=== PATIENT | female | born 1970 | race Native Hawaiian/Other Pacific Islander ===

== ENCOUNTER 2017-01-04 14:26 | Emergency (ER) | payer OTHER ==
[2017-01-04 14:40] VITALS: BP 166/101; PULSE 85; RESP 14; TEMP 98
--- NOTE | 2017-01-04 14:49 | ED ---
General Adult HPI - General Chief complaint: Eye Problems Stated complaint: eye pain Time Seen by Provider: 01/04/17 14:42 Source: patient, RN notes reviewed Mode of arrival: ambulatory Limitations: no limitations - History of Present Illness Initial comments: Patient 46-year-old female who presents emergency room today with chief complaint of mild redness swelling to the lower right eyelid 3 days. Denies any injury or trauma. Denies any visual changes. Does admit that she seemed a small white spot on the inner aspect. Does admit that she's been trying to use some soap to clean the area. Denies any other complaints or associated symptoms. Patient denies any recent fever, chills, shortness of breath, chest pain, back pain, abdominal pain, nausea or vomiting, numbness or tingling, dysuria or hematuria, constipation or diarrhea, headaches or visual changes, or any other complaints. - Related Data Previous Rx's Medication Instructions Recorded Azithromycin [Zithromax Z-pack] 0 mg PO DIRECTED #6 tab 04/24/16 Fluticasone Nasal [place] [Flonase 1 spray EA NOSTRIL DAILY #1 bottle 04/24/16 Nasal [place]] Loratadine-Pseudoeph 5-120 mg 1 each PO Q12HR #30 tab 04/24/16 [Claritin-D 12 HR] Erythromycin Ophth Oint [Romycin 1 applic RIGHT EYE QID 7 Days 01/04/17 Ophth Oint] Allergies Allergy/AdvReac Type Severity Reaction Status Date / Time meperidine HCl [From Demerol] Allergy Anaphylaxis Verified 01/04/17 14:41 propoxyphene napsylate Allergy Anaphylaxis Verified 01/04/17 14:41 [From Darvocet-N 100] Review of Systems ROS Statement: Those systems with pertinent positive or pertinent negative responses have been documented in the HPI. ROS Other: All systems not noted in ROS Statement are negative. Past Medical History Past Medical History: No Reported History History of Any Multi-Drug Resistant Organisms: MRSA Date of last positivie culture/infection: 12/27/15 MDRO Source:: abdomen Past Surgical History: Section, Cholecystectomy, Hysterectomy Past Psychological History: No Psychological Hx Reported Smoking Status: Never smoker Past Alcohol Use History: None Reported Past Drug Use History: None Reported General Exam - General Exam Comments Initial Comments: General: The patient is awake and alert, in no distress, and does not appear acutely ill. Eye: Pupils are equal, round and reactive to light, extra-ocular movements are intact. No nystagmus. There is normal conjunctiva bilaterally. No signs of icterus. Nose has some mild redness swelling to the right lower eyelid. Inside there is evidence for a stye. Ears, nose, mouth and throat: There are moist mucous membranes and no oral lesions. Neck: The neck is supple, there is no tenderness or JVD. Cardiovascular: There is a regular rate and rhythm. No murmur, rub or gallop is appreciated. Respiratory: Lungs are clear to auscultation, respirations are non-labored, breath sounds are equal. No wheezes, stridor, rales, or rhonchi. Musculoskeletal: Normal ROM, no tenderness. Strength 5/5. Sensation intact. Pulses equal bilaterally 2+. Neurological: A&O x 3. CN II-XII intact, There are no obvious motor or sensory deficits. Coordination appears grossly intact. Speech is normal. Skin: Skin is warm and dry and no rashes or lesions are noted. Psychiatric: Cooperative, appropriate mood & affect, normal judgment. Limitations: no limitations Course Vital Signs 01/04/17 14:34 Temperature 98.0 F Pulse Rate 85 Respiratory 14 Rate Blood Pressure 166/101 O2 Sat by Pulse 96 Oximetry Medical Decision Making - Medical Decision Making She will be given some topical antibiotics to use for the area. Advised to use Benadryl for any itching. Warm compresses. Disposition Clinical Impression: Stye Disposition: HOME SELF-CARE Condition: Good Instructions: [place] (ED) Additional Instructions: Please use warm compresses to the area. Please use topical antibiotic as prescribed. Please follow-up with tax associate attorney if symptoms are not improving over the next 2-3 days. Please return for any other concerns. Prescriptions: Erythromycin Ophth Oint [Romycin Ophth Oint] 1 applic RIGHT EYE QID 7 Days Referrals: Daniel Moreno DO [Primary Care Provider] - 1-2 days Robert Jurado MD [STAFF PHYSICIAN] - 1-2 days Time of Disposition: 14:48
== END 2017-01-04 14:55 | disposition home or self-care (01) ==
LOC: EC 14:26
DX: H00.012 Hordeolum externum right lower eyelid (principal); Z88.5 Allergy status to narcotic agent
CPT/HCPCS: 99283

== ENCOUNTER 2017-01-06 19:36 | Emergency (ER) | payer OTHER ==
[2017-01-06] MEDS ORDERED: TOBRAMYCIN 0.3% OPHTH DROPS 5 ML BTL RIGHT EYE STA (19:49)
--- NOTE | 2017-01-06 19:51 | ED ---
Pediatric HENT HPI - General Chief Complaint: ENT Stated Complaint: revisit rt eye tenderness Time Seen by Provider: 01/06/17 19:46 Source: patient, RN notes reviewed Mode of arrival: ambulatory Limitations: no limitations - History of Present Illness Initial Comments: 46-year-old female presented emergency Department chief complaint right eye swelling, stye. Patient states she seen here 2 days for lower lid stye states that is improving states that she now has an upper lid sty. Patient states that it is painful. Denies any blurred vision no contact lens wearing. Patient did not follow-up with an material expeditor or genetic scientist. Patient states there is no drainage and offers no other complaints at this time. - Related Data Previous Rx's Medication Instructions Recorded Fluticasone Nasal [place] [Flonase 1 spray EA NOSTRIL DAILY #1 bottle 04/24/16 Nasal [place]] Loratadine-Pseudoeph 5-120 mg 1 each PO Q12HR #30 tab 04/24/16 [Claritin-D 12 HR] Erythromycin Ophth Oint [Romycin 1 applic RIGHT EYE QID 7 Days 01/04/17 Ophth Oint] Ibuprofen [Motrin] 600 mg PO Q8HR PRN #30 tab 01/06/17 Tobramycin [Tobrex 0.3% Ophth Soln] 1 drop RIGHT EYE Q4HR #5 ml 01/06/17 Allergies Allergy/AdvReac Type Severity Reaction Status Date / Time meperidine HCl [From Demerol] Allergy Anaphylaxis Verified 01/06/17 19:45 propoxyphene napsylate Allergy Anaphylaxis Verified 01/06/17 19:45 [From Darvocet-N 100] Review of Systems ROS Statement: Those systems with pertinent positive or pertinent negative responses have been documented in the HPI. ROS Other: All systems not noted in ROS Statement are negative. Past Medical History Past Medical History: No Reported History History of Any Multi-Drug Resistant Organisms: MRSA Date of last positivie culture/infection: 12/27/15 MDRO Source:: abdomen Past Surgical History: Section, Cholecystectomy, Hysterectomy Past Psychological History: No Psychological Hx Reported Smoking Status: Never smoker Past Alcohol Use History: None Reported Past Drug Use History: None Reported General Exam Limitations: no limitations General appearance: alert, in no apparent distress Head exam: Present: atraumatic, normocephalic, normal inspection Eye exam: Present: PERRL, EOMI, other (There is a small side in the lower right lid along with a larger stye in the upper lid on the right eye). Absent: normal appearance, scleral icterus, conjunctival injection, periorbital swelling , periorbital tenderness ENT exam: Present: normal exam, normal oropharynx, mucous membranes moist, TM's normal bilaterally Neck exam: Present: normal inspection, full ROM. Absent: tenderness, meningismus, lymphadenopathy Respiratory exam: Present: normal lung sounds bilaterally. Absent: respiratory distress, wheezes, rales, rhonchi, stridor Cardiovascular Exam: Present: regular rate, normal rhythm, normal heart sounds. Absent: systolic murmur, diastolic murmur, rubs, gallop, clicks Course Vital Signs 01/06/17 19:41 Temperature 99.6 F Pulse Rate 84 Respiratory 16 Rate Blood Pressure 190/105 O2 Sat by Pulse 97 Oximetry Medical Decision Making - Medical Decision Making 46-year-old female presented for side of her diet. Patient's advised to use warm compresses to the area patient will follow-up with on-call genetic scientist if symptoms persist she also given Tobrex eye drops at this time. Return parameters were discussed Disposition Clinical Impression: Stye Disposition: HOME SELF-CARE Condition: Stable Instructions: [place]iel (ED) Additional Instructions: Please return to the Emergency Department if symptoms worsen or any other concerns. Prescriptions: Ibuprofen [Motrin] 600 mg PO Q8HR PRN #30 tab PRN Reason: Pain Tobramycin [Tobrex 0.3% Ophth Soln] 1 drop RIGHT EYE Q4HR #5 ml Referrals: Daniel Moreno DO [Primary Care Provider] - 1-2 days Nahun Reynoso MD [STAFF PHYSICIAN] - 1-2 days Time of Disposition: 19:51
[2017-01-06 20:09] VITALS: BP 155/85; PULSE 84; RESP 18; TEMP 99.4
== END 2017-01-06 20:08 | disposition home or self-care (01) ==
LOC: EC 19:36
DX: H00.011 Hordeolum externum right upper eyelid (principal); Z88.5 Allergy status to narcotic agent
CPT/HCPCS: 99283

== ENCOUNTER 2017-04-13 12:37 | Emergency (ER) | payer OTHER ==
[2017-04-13 12:49] VITALS: RESP 18
--- NOTE | 2017-04-13 13:16 | ED ---
URI HPI - General Chief Complaint: Upper Respiratory Infection Stated Complaint: Cough, Sore Throat Time Seen by Provider: 04/13/17 12:50 Source: patient, RN notes reviewed Mode of arrival: ambulatory Limitations: no limitations - History of Present Illness Initial Comments: This is a 46-year-old female who presents to the emergency department with chief complaint of cough. Patient states for the last 5 days she has had a productive cough, sore throat and nasal congestion. Patient states that her cough is productive of white phlegm. She denies any fevers, chills, ear pain, headache, abdominal pain, nausea/vomiting/diarrhea. She denies smoking or tobacco use. She denies any sick contacts or recent travel. Denies chest pain, shortness of breath, dysuria or hematuria, numbness or tingling, or vision changes. - Related Data Previous Rx's Medication Instructions Recorded Fluticasone Nasal [place] [Flonase 1 spray EA NOSTRIL DAILY #1 bottle 04/24/16 Nasal [place]] Loratadine-Pseudoeph 5-120 mg 1 each PO Q12HR #30 tab 04/24/16 [Claritin-D 12 HR] Erythromycin Ophth Oint [Romycin 1 applic RIGHT EYE QID 7 Days gm 01/04/17 Ophth Oint] Ibuprofen [Motrin] 600 mg PO Q8HR PRN #30 tab 01/06/17 Tobramycin [Tobrex 0.3% Ophth Soln] 1 drop RIGHT EYE Q4HR #5 ml 01/06/17 Benzonatate [Tessalon Perles] 100 mg PO TID #15 cap 04/13/17 Allergies Allergy/AdvReac Type Severity Reaction Status Date / Time meperidine HCl [From Demerol] Allergy Anaphylaxis Verified 04/13/17 12:49 propoxyphene napsylate Allergy Anaphylaxis Verified 04/13/17 12:49 [From Darvocet-N 100] Review of Systems ROS Statement: Those systems with pertinent positive or pertinent negative responses have been documented in the HPI. ROS Other: All systems not noted in ROS Statement are negative. Past Medical History Past Medical History: No Reported History History of Any Multi-Drug Resistant Organisms: MRSA Date of last positivie culture/infection: 12/27/15 MDRO Source:: abdomen Past Surgical History: Section, Cholecystectomy, Hysterectomy Past Psychological History: No Psychological Hx Reported Smoking Status: Never smoker Past Alcohol Use History: None Reported Past Drug Use History: None Reported General Exam - General Exam Comments Initial Comments: General: Awake and alert, well-developed; in no apparent distress. HEENT: Head atraumatic, normocephalic. Pupils are equal, round and reactive to light. Extraocular movements intact. Oropharynx moist without erythema or exudate. Neck: Supple. Normal ROM. No adenopathy. Cardiovascular: Regular rate and rhythm. No murmurs, rubs or gallops. Chest symmetrical. Respiratory: Lungs clear to auscultation bilaterally. No wheezes, rales or rhonchi. Normal respiratory effort with no use of accessory muscles. Abdomen: Soft, non-tender, non-distended. No rigidity, rebound or guarding. Normal bowel sounds in all 4 quadrants. Musculoskeletal: Normal ROM, no tenderness. Ambulating normally. Pulses 2+ equal and palpable bilaterally. Skin: [place], warm and dry without rashes or lesions. Neurological: Alert and oriented x3. CN II-XII grossly intact. Speech is fluent and answers are appropriate. No focal neuro deficits. Psychiatric: Normal mood and affect. No overt signs of depression or anxiety noted. Limitations: no limitations Course Vital Signs 04/13/17 12:47 Temperature 97 F L Pulse Rate 74 Respiratory 18 Rate Blood Pressure 185/81 O2 Sat by Pulse 98 Oximetry Medical Decision Making - Medical Decision Making This is a 46-year-old female who presents with complaint of cough. X-ray reveals no acute disease. Likely upper respiratory viral infection. Patient is in no acute distress at this time. She'll be discharged home with prescription for Tessalon Perles. She is in agreement to plan voiced understanding. All questions were answered. - Radiology Data Radiology results: report reviewed Chest x-ray findings: Persistent somewhat low lung volumes are re-demonstrated. There is no focal airspace opacity, pleural effusion or pneumothorax seen. Cardiac silhouette size is stable and upper limits of normal. The osseous structures are intact. Impression: No suspicious acute infiltrate. No significant change from prior studies. Disposition Clinical Impression: Upper respiratory infection Disposition: HOME SELF-CARE Condition: Good Instructions: Upper Respiratory Infection (ED) Additional Instructions: Please take medications as prescribed. Please follow up with primary care provider within 1-2 days. Return to emergency department if symptoms should worsen or any concerns arise. Prescriptions: Benzonatate [Tessalon Perles] 100 mg PO TID #15 cap Referrals: Daniel Moreno DO [Primary Care Provider] - 1-2 days Time of Disposition: 13:37
--- NOTE | 2017-04-13 13:17 | XR ---
EXAMINATION TYPE: XR chest 2V DATE OF EXAM: 04/13/2017 COMPARISON: Chest CT and CTA chest November 06, 2015. HISTORY: Cough for one week. TECHNIQUE: Frontal and lateral views of the chest are obtained. FINDINGS: Persistent somewhat low lung volumes are redemonstrated. There is no focal air space opacit y, pleural effusion, or pneumothorax seen. The cardiac silhouette size is stable and upper limits of normal. The osseous structures are intact. IMPRESSION: No suspicious acute infiltrate. No significant change from prior studies.
[2017-04-13 13:46] VITALS: BP 146/88; PULSE 76; TEMP 98
== END 2017-04-13 13:46 | disposition home or self-care (01) ==
LOC: EC 12:37
DX: J06.9 Acute upper respiratory infection, unspecified (principal); Z86.14 Personal history of Methicillin resistant Staphylococcus aureus infection; Z88.5 Allergy status to narcotic agent
CPT/HCPCS: 71020; 99283

== ENCOUNTER 2017-07-14 16:55 | Emergency (ER) | payer OTHER ==
[2017-07-14 17:27] VITALS: BP 170/80; PULSE 71; RESP 16; TEMP 97
[2017-07-14] MEDS ORDERED: SULFAMETH-TMP DS STARTER PACK 2 TAB BTL PO STA (18:09)
--- NOTE | 2017-07-14 18:11 | ED ---
Skin/Abscess/FB HPI - General Chief complaint: Skin/Abscess/Foreign Body Stated complaint: Poss Spider bite on side Time Seen by Provider: 07/14/17 17:33 Source: patient, RN notes reviewed, old records reviewed Mode of arrival: ambulatory Limitations: no limitations - History of Present Illness Initial comments: This patient is a 47-year-old female presents with chief complaint of a abscess on her right side of her abdomen. She reports she's had this abscess before. She said she said I have a drain in the past. 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 Patient said she said no fever or chills. She reports it's in painful. She states this in an area where her pants rub. - Related Data Previous Rx's Medication Instructions Recorded Fluticasone Nasal [place] [Flonase 1 spray EA NOSTRIL DAILY #1 bottle 04/24/16 Nasal [place]] Loratadine-Pseudoeph 5-120 mg 1 each PO Q12HR #30 tab 04/24/16 [Claritin-D 12 HR] Erythromycin Ophth Oint [Romycin 1 applic RIGHT EYE QID 7 Days gm 01/04/17 Ophth Oint] Ibuprofen [Motrin] 600 mg PO Q8HR PRN #30 tab 01/06/17 Tobramycin [Tobrex 0.3% Ophth Soln] 1 drop RIGHT EYE Q4HR #5 ml 01/06/17 Benzonatate [Tessalon Perles] 100 mg PO TID #15 cap 04/13/17 Mupirocin Calcium 2% Cream 1 applic TOPICAL BID #1 tube 07/14/17 [Bactroban 2% Cream] Sulfamethox-Tmp 800-160Mg [Bactrim 2 tab PO Q12HR #40 tab 07/14/17 DS 800-160 mg] Allergies Allergy/AdvReac Type Severity Reaction Status Date / Time meperidine HCl [From Demerol] Allergy Anaphylaxis Verified 07/14/17 17:27 propoxyphene napsylate Allergy Anaphylaxis Verified 07/14/17 17:27 [From Darvocet-N 100] Review of Systems ROS Statement: Those systems with pertinent positive or pertinent negative responses have been documented in the HPI. ROS Other: All systems not noted in ROS Statement are negative. Past Medical History Past Medical History: No Reported History History of Any Multi-Drug Resistant Organisms: MRSA Date of last positivie culture/infection: 12/27/15 MDRO Source:: abdomen Past Surgical History: Section, Cholecystectomy, Hysterectomy Past Psychological History: No Psychological Hx Reported Smoking Status: Never smoker Past Alcohol Use History: None Reported Past Drug Use History: None Reported General Exam - General Exam Comments Initial Comments: This is a 47 year old female, no distress Limitations: no limitations General appearance: alert, in no apparent distress Head exam: Present: atraumatic, normocephalic, normal inspection Eye exam: Present: normal appearance, PERRL, EOMI. Absent: scleral icterus, conjunctival injection, periorbital swelling Neck exam: Present: normal inspection. Absent: tenderness, meningismus, lymphadenopathy Respiratory exam: Present: normal lung sounds bilaterally. Absent: respiratory distress, wheezes, rales, rhonchi, stridor Cardiovascular Exam: Present: regular rate, normal rhythm, normal heart sounds. Absent: systolic murmur, diastolic murmur, rubs, gallop, clicks GI/Abdominal exam: Present: soft, normal bowel sounds, other (Patient has 3cm area of firm abscess formation over right side, and surround area of cellulitis) . Absent: distended, tenderness, guarding, rebound, rigid Extremities exam: Present: normal inspection, full ROM, normal capillary refill. Absent: tenderness, pedal edema, joint swelling, calf tenderness Back exam: Present: normal inspection Neurological exam: Present: alert, oriented X3, CN II-XII intact Psychiatric exam: Present: normal affect, normal mood Skin exam: Present: warm, dry, intact, normal color. Absent: rash Course Vital Signs 07/14/17 17:26 Temperature 97.0 F L Pulse Rate 71 Respiratory 16 Rate Blood Pressure 170/80 O2 Sat by Pulse 98 Oximetry Procedures - Incision & Drainage Site: abdomen Size (cm): 3 Anesthetic Used: lidocaine 1% Amount (mLs): 4 I&D Cleaning Method: Iodine Sterile Field Used?: Yes Scalpel Used: #11 I&D Drainage Obtained: Pus, Blood Packing: Iodoform Culture Obtained?: Yes Patient Tolerated Procedure: well Medical Decision Making - Medical Decision Making This patient is a 47-year-old female presents with chief complaint of a abscess on her right side of her abdomen. She reports she's had this abscess before. Patient has a 3 cm area of abscess, with surround erythema nad cellulitis. Patient underwent I and D. Patient had culture obtained and small amount of pus removed. Started on bactroban and bactrim DS. Discussed follow up with PCP and if it is worse to return. She understands treatment plan and will comply. Disposition Clinical Impression: Abdominal wall abscess Disposition: HOME SELF-CARE Condition: Good Instructions: Abscess (ED) Additional Instructions: Patient should take the antibiotics as prescribed. Follow-up with her primary care provider for the packing to do in one to 2 days. Patient should return to the emergency department if any alarming signs or symptoms occur. Prescriptions: Mupirocin Calcium 2% Cream [Bactroban 2% Cream] 1 applic TOPICAL BID #1 tube Sulfamethox-Tmp 800-160Mg [Bactrim DS 800-160 mg] 2 tab PO Q12HR #40 tab Referrals: Daniel Moreno DO [Primary Care Provider] - 1-2 days Time of Disposition: 18:09
== END 2017-07-14 18:17 | disposition home or self-care (01) ==
LOC: EC 16:55
DX: L02.211 Cutaneous abscess of abdominal wall (principal); Z86.14 Personal history of Methicillin resistant Staphylococcus aureus infection; Z88.5 Allergy status to narcotic agent
CPT/HCPCS: 10060; 87070; 87077; 87186; 87205; 99283

== ENCOUNTER → 2017-11-03 | Outpatient (CLI) | payer OTHER ==
--- NOTE | 2017-11-04 11:21 | MM ---
Reason for exam: screening (asymptomatic). Last mammogram was performed 2 years and 2 months ago. History: Family history of breast cancer in sister at age 40. Physical Findings: A clinical breast exam by your physician is recommended on an annual basis and results should be correlated with mammographic findings. MG Screening Mammo w CAD Bilateral CC, MLO, and XCCL view(s) were taken. Prior study comparison: September 11, 2015, bilateral MG 3d diag mammo w/cad JOHNIE. There are scattered fibroglandular densities. Focal asymmetry right anterior middle depth upper position. ASSESSMENT: Incomplete: need additional imaging evaluation, BI-RAD 0 RECOMMENDATION: Special view mammogram of the right breast. If lesion persists on supplemental views, image directed ultrasound is recommended. [facility] will attempt to contact patient to return for supplemental views and ultrasound if indicated.
== END | disposition home or self-care (01) ==
LOC: RADMAMWWP 08:18
PROVIDERS: ATTEND Family Medicine
DX: Z12.31 Encounter for screening mammogram for malignant neoplasm of breast (principal)
CPT/HCPCS: 77067

== ENCOUNTER → 2017-11-10 | Outpatient (CLI) | payer OTHER ==
--- NOTE | 2017-11-10 11:19 | MM ---
Reason for exam: additional evaluation requested from abnormal screening. Last mammogram was performed less than 1 month ago. History: Family history of breast cancer in sister at age 40. Physical Findings: Nurse did not find any significant physical abnormalities on exam. MG Work Up Mamm w CAD RT LM and spot compression MLO view(s) were taken of the right breast. Prior study comparison: November 03, 2017, bilateral MG screening mammo w CAD. September 11, 2015, bilateral MG 3d diag mammo w/cad JOHNIE. There are scattered fibroglandular densities. Focal asymmetry upper outer quadrant right breast, partially disperses. CC appears stable from 2016. These results were verbally communicated with the patient and result sheet given to the patient on 11/10/17. ASSESSMENT: Probably benign, BI-RAD 3 RECOMMENDATION: Follow-up diagnostic mammogram of the right breast in 6 months.
== END | disposition home or self-care (01) ==
LOC: RADMAMWWP 10:02
PROVIDERS: ATTEND Family Medicine
DX: R92.8 Other abnormal and inconclusive findings on diagnostic imaging of breast (principal)
CPT/HCPCS: 77065

== ENCOUNTER 2018-03-11 13:34 | Emergency (ER) | payer OTHER ==
[2018-03-11 13:51] VITALS: PULSE 74; RESP 18; TEMP 98.1
[2018-03-11 13:53] VITALS: BP 163/90
--- NOTE | 2018-03-11 14:03 | ED ---
ENT HPI - General Chief complaint: ENT Stated complaint: Fb in ear Time Seen by Provider: 03/11/18 13:57 Source: patient, RN notes reviewed Mode of arrival: ambulatory Limitations: no limitations - History of Present Illness Initial comments: This is a 47-year-old female who presents to the emergency department with chief complaint of left ear foreign body. Patient states that yesterday she was cleaning out her left ear with a Q-tip. She states that she thought there was wax in there so was trying to get it out. She states that since that time her hearing in the left ear has been muffled. She states that she believes she pushed the ear wax farther into her ear but is unsure if there is a foreign body. She has no other complaints. Denies fevers or chills, headache or dizziness, chest pain or shortness of breath. Denies ear pain. - Related Data Previous Rx's Medication Instructions Recorded Fluticasone Nasal [place] [Flonase 1 spray EA NOSTRIL DAILY #1 bottle 04/24/16 Nasal [place]] Loratadine-Pseudoeph 5-120 mg 1 each PO Q12HR #30 tab 04/24/16 [Claritin-D 12 HR] Erythromycin Ophth Oint [Romycin 1 applic RIGHT EYE QID 7 Days gm 01/04/17 Ophth Oint] Ibuprofen [Motrin] 600 mg PO Q8HR PRN #30 tab 01/06/17 Tobramycin [Tobrex 0.3% Ophth Soln] 1 drop RIGHT EYE Q4HR #5 ml 01/06/17 Benzonatate [Tessalon Perles] 100 mg PO TID #15 cap 04/13/17 Mupirocin Calcium 2% Cream 1 applic TOPICAL BID #1 tube 07/14/17 [Bactroban 2% Cream] Sulfamethox-Tmp 800-160Mg [Bactrim 2 tab PO Q12HR #40 tab 07/14/17 DS 800-160 mg] Allergies Allergy/AdvReac Type Severity Reaction Status Date / Time meperidine HCl [From Demerol] Allergy Anaphylaxis Verified 07/14/17 17:27 propoxyphene napsylate Allergy Anaphylaxis Verified 07/14/17 17:27 [From Darvocet-N 100] Review of Systems ROS Statement: Those systems with pertinent positive or pertinent negative responses have been documented in the HPI. ROS Other: All systems not noted in ROS Statement are negative. Past Medical History Past Medical History: No Reported History History of Any Multi-Drug Resistant Organisms: MRSA Date of last positivie culture/infection: 07/14/17 MDRO Source:: abdomen Past Surgical History: Section, Cholecystectomy, Hysterectomy Past Psychological History: No Psychological Hx Reported Smoking Status: Never smoker Past Alcohol Use History: None Reported Past Drug Use History: None Reported General Exam - General Exam Comments Initial Comments: General: Awake and alert, well-developed; in no apparent distress. HEENT: Head atraumatic, normocephalic. Pupils are equal, round and reactive to light. Extraocular movements intact. Oropharynx moist without erythema or exudate. Cerumen impaction left external ear canal. Neck: Supple. Normal ROM. Cardiovascular: Regular rate and rhythm. No murmurs, rubs or gallops. Chest symmetrical. Respiratory: Lungs clear to auscultation bilaterally. No wheezes, rales or rhonchi. Normal respiratory effort with no use of accessory muscles. Musculoskeletal: Normal ROM, no tenderness bilateral upper and lower extremities. Ambulating normally. Skin: [place], warm and dry without rashes or lesions. Neurological: Alert and oriented x3. CN II-XII grossly intact. Speech is fluent and answers are appropriate. No focal neuro deficits. Psychiatric: Normal mood and affect. No overt signs of depression or anxiety noted. Limitations: no limitations Course Vital Signs 03/11/18 03/11/18 13:49 13:52 Temperature 98.1 F Pulse Rate 74 Respiratory 18 Rate Blood Pressure 163/90 O2 Sat by Pulse 99 Oximetry Procedures - Ear Wax Removal Left Ear Ear Canal Irrigated by: RN, other (myself) Ear Canal Irrigated With: Waterpik Results: Re-examined: cerumen removed completely TM Visible: TM(s) intact, normal appearance Ear Canal: atraumatic Patient Tolerated Procedure: well, no complications Complications: no problems Medical Decision Making - Medical Decision Making This is a 47-year-old female who presents to the emergency department with chief complaint of left ear foreign body. Patient states she was cleaning out her ear yesterday and now has muffled hearing. Impacted cerumen noted within the left external ear canal. Water Pik was used and cerumen was successfully removed without complication. TM is intact and external canal is atraumatic. Patient reports improvement in her hearing. She is in no acute distress and will be discharged home at this time. She is in agreement and voices understanding. All questions were answered. Disposition Clinical Impression: Impacted cerumen Disposition: HOME SELF-CARE Condition: Good Instructions: Cerumen Impaction (ED) Additional Instructions: Please follow up with primary care provider within 1-2 days. Return to emergency department if symptoms should worsen or any concerns arise. Is patient prescribed a controlled substance at d/c from ED?: No Referrals: Daniel Moreno DO [Primary Care Provider] - 1-2 days Time of Disposition: 14:11
== END 2018-03-11 14:21 | disposition home or self-care (01) ==
LOC: EC 13:34
DX: H61.22 Impacted cerumen, left ear (principal); Z86.14 Personal history of Methicillin resistant Staphylococcus aureus infection; Z88.5 Allergy status to narcotic agent
CPT/HCPCS: 69209; 99282

== ENCOUNTER 2018-07-23 22:57 | Emergency (ER) | payer OTHER ==
[2018-07-24] MEDS ORDERED: KETOROLAC 30 MG/ML 1 ML VIAL IM STA (00:01)
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
--- NOTE | 2018-07-24 00:42 | XR ---
EXAMINATION TYPE: XR lumbosacral spine min 4V DATE OF EXAM: 07/24/2018 COMPARISON: NONE HISTORY: Back pain TECHNIQUE: 5 views FINDINGS: The lumbar vertebra have normal spacing and alignment. Posterior elements are intact and sa croiliac joints appear normal. IMPRESSION: Normal lumbar spine exam.
--- NOTE | 2018-07-24 00:43 | XR ---
EXAMINATION TYPE: XR thoracic spine complete DATE OF EXAM: 07/24/2018 COMPARISON: NONE HISTORY: Back pain TECHNIQUE: 3 views FINDINGS: Thoracic vertebra have fairly normal spacing and alignment. Posterior elements are intact. There is no paraspinal mass. I see no compression fracture. IMPRESSION: Negative thoracic spine exam.
[2018-07-24] MEDS ORDERED: CYCLOBENZAPRINE 10MG STARTER 3 TAB BTL PO STA (00:59)
[2018-07-24] MEDS ORDERED: ACET/COD 300 MG/30 MG STARTER PACK 6 TAB BTL PO STA (00:59)
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
[2018-07-24 01:12] VITALS: BP 166/90; PULSE 65; RESP 18; TEMP 98
== END 2018-07-24 01:19 | disposition home or self-care (01) ==
LOC: EC 22:57
DX: S16.1XXA Strain of muscle, fascia and tendon at neck level, initial encounter (principal); S29.012A Strain of muscle and tendon of back wall of thorax, initial encounter; S60.211A Contusion of right wrist, initial encounter; S60.212A Contusion of left wrist, initial encounter; R51 Headache; M79.652 Pain in left thigh; Z88.5 Allergy status to narcotic agent; Z88.6 Allergy status to analgesic agent; Z86.14 Personal history of Methicillin resistant Staphylococcus aureus infection; Y04.0XXA Assault by unarmed brawl or fight, initial encounter; Y92.009 Unspecified place in unspecified non-institutional (private) residence as the place of occurrence of the external cause
CPT/HCPCS: 70450; 72072; 72110; 72125; 99284

== ENCOUNTER 2019-07-08 13:36 | Emergency (ER) | payer OTHER ==
[2019-07-08 13:48] VITALS: RESP 20
[2019-07-08 13:56] VITALS: BP 148/98; PULSE 101; TEMP 98.4
[2019-07-08] MEDS ORDERED: DEXAMETHASONE SOD PHOSPHATE 10 MG/ML 1 ML VIAL IM STA (14:09)
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
== END 2019-07-08 14:25 | disposition home or self-care (01) ==
LOC: EC 13:36 → MERGE 13:36 → EC 14:25
DX: J02.0 Streptococcal pharyngitis (principal); H92.02 Otalgia, left ear; Z88.6 Allergy status to analgesic agent; Z88.5 Allergy status to narcotic agent
CPT/HCPCS: 99282; 96372; J1100

== ENCOUNTER 2020-02-27 14:53 | Emergency (ER) | payer OTHER ==
[2020-02-27 15:10] VITALS: BP 145/100; PULSE 68; RESP 18; TEMP 98.2
[2020-02-27] MEDS ORDERED: ACET/COD 300 MG/30 MG STARTER PACK 6 TAB BTL PO STA (15:39)
--- NOTE | 2020-02-27 15:39 | ED ---
ENT HPI - General Chief complaint: Dental/Oral Stated complaint: Dental Pain Time Seen by Provider: 02/27/20 15:03 Source: patient Mode of arrival: ambulatory Limitations: no limitations - History of Present Illness Initial comments: Patient is a 49-year-old male presenting to the emergency department with a chief complaint of dental pain. Patient reports about one week ago she had her wisdom tooth removal. Tooth #1 was removed. Patient states ever since then she has developed pain in the lower jaw and TMJ region. Patient states her "teeth feel misaligned". Patient denies any night sweats or chills or any submandibular swelling. She denies any pain on the floor of the intraoral cavity. Denies any night sweats fevers or chills. States she spoke with her dentist who advised to take Tylenol or Motrin for pain. Patient reports she has an appointment scheduled with a dentist in 2 weeks. - Related Data Previous Rx's Medication Instructions Recorded Fluticasone Nasal [place] [Flonase 1 spray EA NOSTRIL DAILY #1 bottle 04/24/16 Nasal [place]] Loratadine-Pseudoeph 5-120 mg 1 each PO Q12HR #30 tab 04/24/16 [Claritin-D 12 HR] Erythromycin Ophth Oint [Romycin 1 applic RIGHT EYE QID 7 Days gm 01/04/17 Ophth Oint] Ibuprofen [Motrin] 600 mg PO Q8HR PRN #30 tab 01/06/17 Tobramycin [Tobrex 0.3% Ophth Soln] 1 drop RIGHT EYE Q4HR #5 ml 01/06/17 Benzonatate [Tessalon Perles] 100 mg PO TID #15 cap 04/13/17 Mupirocin Calcium 2% Cream 1 applic TOPICAL BID #1 tube 07/14/17 [Bactroban 2% Cream] Sulfamethox-Tmp 800-160Mg [Bactrim 2 tab PO Q12HR #40 tab 07/14/17 DS 800-160 mg] Amoxicillin 10 ml PO BID #200 ml 07/08/19 Amoxicillin/Potassium Clav 1 tab PO Q12HR #20 tab 02/27/20 [Augmentin 875-125 Tablet] Allergies Allergy/AdvReac Type Severity Reaction Status Date / Time acetaminophen Allergy Dyspnea Verified 02/27/20 15:03 [From Sarath-N] meperidine HCl [From Demerol] Allergy Anaphylaxis Verified 02/27/20 15:03 propoxyphene Allergy Dyspnea Verified 02/27/20 15:03 [From Darvocet-N] propoxyphene napsylate Allergy Anaphylaxis Verified 02/27/20 15:03 [From Darvocet-N 100] ketorolac AdvReac Chest Pain Verified 02/27/20 15:03 Review of Systems ROS Statement: Those systems with pertinent positive or pertinent negative responses have been documented in the HPI. ROS Other: All systems not noted in ROS Statement are negative. Past Medical History Past Medical History: No Reported History History of Any Multi-Drug Resistant Organisms: MRSA, None Reported Date of last positivie culture/infection: 07/14/17 MDRO Source:: abdomen Past Surgical History: Section, Cholecystectomy, Hysterectomy Past Psychological History: No Psychological Hx Reported Smoking Status: Never smoker Past Alcohol Use History: None Reported Past Drug Use History: None Reported General Exam Limitations: no limitations General appearance: alert, in no apparent distress, obese Head exam: Present: atraumatic, normocephalic, normal inspection Eye exam: Present: normal appearance, PERRL, EOMI Pupils: Present: normal accommodation ENT exam: Present: normal exam, normal oropharynx (Well-healing wound of tooth #1. No tooth abscess), mucous membranes moist, TM's normal bilaterally, normal external ear exam, other (Some TMJ tenderness bilaterally.) Neck exam: Present: normal inspection, full ROM. Absent: tenderness, lymphadenopathy Respiratory exam: Present: normal lung sounds bilaterally. Absent: respiratory distress, wheezes, rales Cardiovascular Exam: Present: regular rate, normal rhythm, normal heart sounds Extremities exam: Present: normal inspection, full ROM, normal capillary refill. Absent: tenderness Back exam: Present: normal inspection, full ROM. Absent: tenderness, CVA tenderness (R), CVA tenderness (L) Neurological exam: Present: alert, oriented X3, normal gait Psychiatric exam: Present: normal affect, normal mood Skin exam: Present: warm, dry, intact, normal color Course Vital Signs 02/27/20 15:04 Temperature 98.2 F Pulse Rate 68 Respiratory 18 Rate Blood Pressure 145/100 O2 Sat by Pulse 98 Oximetry Medical Decision Making - Medical Decision Making Patient is a 49-year-old female presenting to the emergency department with a chief complaint of dental pain. On initial evaluation, patient has no signs of a dental infection. Although, she continues to have pain. Patient given a Tylenol 3 starter pack. Patient states she has tolerated Tylenol before without any problems. Patient was started on Augmentin and will be discharged 10 day course of it. She is to follow-up with her dentist as soon as possible. She'll return parameters were thoroughly discussed with patient was understanding and agreeable. Case discussed with physician. Disposition Clinical Impression: Pain, dental Disposition: HOME SELF-CARE Condition: Stable Instructions (If sedation given, give patient instructions): Toothache (ED) Additional Instructions: Follow with the dentist. Take prescribed medication as directed. Return to emergency department if symptoms worsen. Prescriptions: Amoxicillin/Potassium Clav [Augmentin 875-125 Tablet] 1 tab PO Q12HR #20 tab Is patient prescribed a controlled substance at d/c from ED?: No Referrals: Daniel Moreno DO [Primary Care Provider] - 1-2 days Time of Disposition: 15:38
[2020-02-27] MEDS ORDERED: AMOXIC-POT CLAV 875-125MG 1 EACH TAB PO STA (15:40)
== END 2020-02-27 15:55 | disposition home or self-care (01) ==
LOC: EC 14:53
DX: K08.89 Other specified disorders of teeth and supporting structures (principal); Z88.5 Allergy status to narcotic agent; Z88.6 Allergy status to analgesic agent; Z88.8 Allergy status to other drugs, medicaments and biological substances; Z86.14 Personal history of Methicillin resistant Staphylococcus aureus infection; Z98.818 Other dental procedure status
CPT/HCPCS: 99282

== ENCOUNTER 2020-11-02 16:35 | Emergency (ER) | payer OTHER ==
[2020-11-02] MEDS ORDERED: ACETAMINOPHEN TAB 500 MG TAB PO STA (17:23)
--- NOTE | 2020-11-02 17:26 | ED ---
General Adult HPI - General Chief complaint: Fall Stated complaint: Fall, knee & elbow pain Time Seen by Provider: 11/02/20 17:07 Source: patient Mode of arrival: wheelchair Limitations: no limitations - History of Present Illness Initial comments: Dictation was produced using [employer] dictation software. please excuse any grammatical, word or spelling errors. This patient was cared for during a federal and state declared state of emergency secondary to Covid 19 Chief Complaint: 50-year-old female presents emergency department after fall History of Present Illness: 50-year-old female she was walking up the steps in a dark movie theater. During the conclusion of the way they were transiently when she was walking the steps and tripped and fell landing on her right side. Patient states she has pain in her right lateral knee, right forearm and lumbar spine. Patient has a numbness and paresthesias in the extremities. The ROS documented in this emergency department record has been reviewed and confirmed by me. Those systems with pertinent positive or negative responses have been documented in the HPI. All other systems are other negative and/or noncontributory. PHYSICAL EXAM: General Impression: Alert and oriented x3, not in acute distress HEENT: Normocephalic atraumatic, extra-ocular movements intact, pupils equal and reactive to light bilaterally, mucous membranes moist. Cardiovascular: Heart regular rate and rhythm Chest: Able to complete full sentences, no retractions, no tachypnea Abdomen: abdomen soft, non-tender, non-distended, no organomegaly Musculoskeletal: Pulses present and equal in all extremities, no peripheral edema, tenderness to palpation over the right lateral knee, range of motion intact, some bogginess to the right extensor forearm muscles with palpatory tenderness to the proximal forearm, tenderness to palpation over the lumbar spine Motor: no focal deficits noted Neurological: CN II-XII grossly intact, no focal motor or sensory deficits noted Skin: Intact with no visualized rashes Psych: Normal affect and mood ED course: 51-year-old male presents after a ground-level fall. Her complaints are right knee pain and right forearm pain in back pain. Vital signs upon arrival are within acceptable limits. X-ray of the forearms unremarkable. Lumbar spine x-ray is unremarkable. Knee x-rays unremarkable. Clinical presentation consistent with forearm contusion, knee contusion and back strain. Patient will be discharged. - Related Data Previous Rx's Medication Instructions Recorded Fluticasone Nasal [place] [Flonase 1 spray EA NOSTRIL DAILY #1 bottle 04/24/16 Nasal [place]] Loratadine-Pseudoeph 5-120 mg 1 each PO Q12HR #30 tab 04/24/16 [Claritin-D 12 HR] Erythromycin Ophth Oint [Romycin 1 applic RIGHT EYE QID 7 Days gm 01/04/17 Ophth Oint] Ibuprofen [Motrin] 600 mg PO Q8HR PRN #30 tab 01/06/17 Tobramycin [Tobrex 0.3% Ophth Soln] 1 drop RIGHT EYE Q4HR #5 ml 01/06/17 Benzonatate [Tessalon Perles] 100 mg PO TID #15 cap 04/13/17 Mupirocin Calcium 2% Cream 1 applic TOPICAL BID #1 tube 07/14/17 [Bactroban 2% Cream] Sulfamethox-Tmp 800-160Mg [Bactrim 2 tab PO Q12HR #40 tab 07/14/17 DS 800-160 mg] Amoxicillin 10 ml PO BID #200 ml 07/08/19 Amoxicillin/Potassium Clav 1 tab PO Q12HR #20 tab 02/27/20 [Augmentin 875-125 Tablet] Allergies Allergy/AdvReac Type Severity Reaction Status Date / Time acetaminophen Allergy Dyspnea Verified 11/02/20 17:00 [From Darvocet-N] meperidine HCl [From Demerol] Allergy Anaphylaxis Verified 11/02/20 17:00 propoxyphene Allergy Dyspnea Verified 11/02/20 17:00 [From Darvocet-N] propoxyphene napsylate Allergy Anaphylaxis Verified 11/02/20 17:00 [From Darvocet-N 100] ketorolac AdvReac Chest Pain Verified 11/02/20 17:00 Review of Systems ROS Statement: Those systems with pertinent positive or pertinent negative responses have been documented in the HPI. ROS Other: All systems not noted in ROS Statement are negative. Past Medical History Past Medical History: No Reported History History of Any Multi-Drug Resistant Organisms: MRSA, None Reported Date of last positivie culture/infection: 07/14/17 MDRO Source:: abdomen Past Surgical History: Section, Cholecystectomy, Hysterectomy Past Psychological History: No Psychological Hx Reported Smoking Status: Never smoker Past Alcohol Use History: None Reported Past Drug Use History: None Reported General Exam Limitations: no limitations Course Vital Signs 11/02/20 17:00 Temperature 98.2 F Pulse Rate 80 Respiratory 18 Rate Blood Pressure 140/89 O2 Sat by Pulse 99 Oximetry Disposition Clinical Impression: Fall Disposition: HOME SELF-CARE Condition: Good Instructions (If sedation given, give patient instructions): Fall Prevention for Older Adults (ED) Is patient prescribed a controlled substance at d/c from ED?: No Referrals: Daniel Moreno DO [Primary Care Provider] - 1-2 days
[2020-11-02] MEDS ORDERED: IBUPROFEN 800 MG TAB PO STA (18:07)
--- NOTE | 2020-11-02 18:07 | XR ---
EXAMINATION TYPE: XR forearm RT DATE OF EXAM: 11/02/2020 COMPARISON: NONE HISTORY: Pain TECHNIQUE: 2 views FINDINGS: Radius and ulna appear intact. I see no fracture nor dislocation. Carpal bones are intact. Elbow joint is intact. IMPRESSION: Negative right forearm exam. No fracture.
--- NOTE | 2020-11-02 18:09 | XR ---
EXAMINATION TYPE: XR lumbar spine 2 or 3V DATE OF EXAM: 11/02/2020 COMPARISON: 08/11/2018 HISTORY: Pain TECHNIQUE: 2 views FINDINGS: There is 5 mm anterior subluxation of L4 in relation L5. The posterior elements are intact. There is no compression fracture. Sacroiliac joints are intact. IMPRESSION: There is a degenerative first-degree L4-5 spondylolisthesis that has progressed compared to old exam. No fracture seen.
--- NOTE | 2020-11-02 18:10 | XR ---
EXAMINATION TYPE: XR knee complete RT DATE OF EXAM: 11/02/2020 COMPARISON: NONE HISTORY: Pain TECHNIQUE: 3 views FINDINGS: I see no fracture nor dislocation. Joint spaces are normal. There is no sign of knee joint effusion. IMPRESSION: Negative right knee exam. No fracture.
[2020-11-02 18:42] VITALS: BP 137/78; PULSE 81; RESP 16; TEMP 98.1
== END 2020-11-02 18:41 | disposition home or self-care (01) ==
LOC: EC 16:35
DX: M25.561 Pain in right knee (principal); M54.5 Low back pain; M79.631 Pain in right forearm; R20.2 Paresthesia of skin; R20.0 Anesthesia of skin; W01.0XXA Fall on same level from slipping, tripping and stumbling without subsequent striking against object, initial encounter; Y93.01 Activity, walking, marching and hiking; Y92.26 Movie house or cinema as the place of occurrence of the external cause
CPT/HCPCS: 72100; 99283

== ENCOUNTER → 2020-11-26 | Outpatient (CLI) | payer OTHER ==
--- NOTE | 2020-11-28 09:51 | MR ---
EXAMINATION TYPE: MR lumbar spine wo con DATE OF EXAM: 11/26/2020 COMPARISON: Plain films 11/02/2020 HISTORY: Low back pain down both legs due to fall on 11/02/20. CONTRAST: 0 mL intravenous Gadavist. TECHNIQUE: Multiplanar, multisequence images of the lumbar spine were acquired. FINDINGS: L5-S1: No significant disc bulge or disc herniation. No spinal canal stenosis. No foraminal stenosi s. Is mild facet hypertrophy present. Some mild disc desiccation is present. No loss of disc height is evident. L4-L5: No significant disc bulge or disc herniation. No spinal canal stenosis. No foraminal stenosi s. Hypertrophy is present with ligamentum flavum laxity has some mild posterior lateral thecal sac c ompression. Disc desiccation without disc height loss is evident. L3-L4: No significant disc bulge or disc herniation. No spinal canal stenosis. No foraminal stenosi s. L2-L3: No significant disc bulge or disc herniation. No spinal canal stenosis. No foraminal stenosi s. L1-L2: No significant disc bulge or disc herniation. No spinal canal stenosis. No foraminal stenosi s. T12-L1: No significant disc bulge or disc herniation. No spinal canal stenosis. No foraminal stenos is. IMPRESSION: 1. Facet hypertrophy L4-5 without spinal canal stenosis. Neural foramen are patent. 2. No suspicious disc changes. 3. No acute posttraumatic changes.
== END | disposition home or self-care (01) ==
LOC: RADMRIMAIN 16:39
PROVIDERS: ATTEND Nurse Practitioner Family
DX: M47.26 Other spondylosis with radiculopathy, lumbar region (principal)
CPT/HCPCS: 72148

== ENCOUNTER 2021-03-24 20:42 | Emergency (ER) | payer OTHER ==
[2021-03-24 20:50] VITALS: BP 146/87; PULSE 80; RESP 18
[2021-03-24] MEDS ORDERED: MORPHINE SULFATE 4 MG/ML SYRINGE IM STA (21:34)
--- NOTE | 2021-03-24 22:22 | ED ---
Fall HPI - General Chief Complaint: Fall Stated Complaint: hit head in a fall Time Seen by Provider: 03/24/21 21:01 Source: patient Mode of arrival: ambulatory - History of Present Illness Initial Comments: This patient is a 50-year-old woman who states that she was negotiating stairs at her home when she turned and struck her head against an exposed to buy 4. She did fall down a couple of stairs then. She denies loss of consciousness. She indicates right temporal pain that radiates down towards the right orbit though she did not hit the orbit. She is also having some upper cervical spine pain. She denies weakness or numbness of the extremities. No loss of control of bladder or bowel. No other injuries related to the fall which was down to 3 stairs MD Complaint: other -: hour(s) Fall From: standing When Fall Occurred: [address] Fall Occurred: home Loss of Consciousness: none Prolonged Down Time?: no Location: head Severity: moderate Quality: aching Context: tripped/slipped Associated Symptoms: headache, neck pain - Related Data Previous Rx's Medication Instructions Recorded Fluticasone Nasal [place] [Flonase 1 spray EA NOSTRIL DAILY #1 bottle 04/24/16 Nasal [place]] Loratadine-Pseudoeph 5-120 mg 1 each PO Q12HR #30 tab 04/24/16 [Claritin-D 12 HR] Erythromycin Ophth Oint [Romycin 1 applic RIGHT EYE QID 7 Days gm 01/04/17 Ophth Oint] Ibuprofen [Motrin] 600 mg PO Q8HR PRN #30 tab 01/06/17 Tobramycin [Tobrex 0.3% Ophth Soln] 1 drop RIGHT EYE Q4HR #5 ml 01/06/17 Benzonatate [Tessalon Perles] 100 mg PO TID #15 cap 04/13/17 Mupirocin Calcium 2% Cream 1 applic TOPICAL BID #1 tube 07/14/17 [Bactroban 2% Cream] Sulfamethox-Tmp 800-160Mg [Bactrim 2 tab PO Q12HR #40 tab 07/14/17 DS 800-160 mg] Amoxicillin 10 ml PO BID #200 ml 07/08/19 Amoxicillin/Potassium Clav 1 tab PO Q12HR #20 tab 02/27/20 [Augmentin 875-125 Tablet] Allergies Allergy/AdvReac Type Severity Reaction Status Date / Time acetaminophen Allergy Dyspnea Verified 03/24/21 20:50 [From Darvocet-N] meperidine HCl [From Demerol] Allergy Anaphylaxis Verified 03/24/21 20:50 propoxyphene Allergy Dyspnea Verified 03/24/21 20:50 [From Darvocet-N] propoxyphene napsylate Allergy Anaphylaxis Verified 03/24/21 20:50 [From Darvocet-N 100] ketorolac AdvReac Chest Pain Verified 03/24/21 20:50 Review of Systems ROS Statement: Those systems with pertinent positive or pertinent negative responses have been documented in the HPI. ROS Other: All systems not noted in ROS Statement are negative. Constitutional: Denies: fever, chills, weakness Eyes: Denies: eye pain, vision change ENT: Denies: ear pain, hearing loss, epistaxis Respiratory: Denies: cough, dyspnea Cardiovascular: Denies: chest pain, palpitations, syncope Gastrointestinal: Denies: abdominal pain, vomiting Musculoskeletal: Denies: back pain Skin: Denies: rash Neurological: Reports: as per HPI, headache. Denies: weakness, numbness, paresthesias, confusion Hematological/Lymphatic: Denies: easy bleeding Past Medical History Past Medical History: No Reported History History of Any Multi-Drug Resistant Organisms: MRSA Date of last positivie culture/infection: 07/14/17 MDRO Source:: abdomen Past Surgical History: Section, Cholecystectomy, Hysterectomy Past Psychological History: No Psychological Hx Reported Smoking Status: Never smoker Past Alcohol Use History: None Reported Past Drug Use History: None Reported General Exam Limitations: no limitations General appearance: alert, in no apparent distress Head exam: Present: atraumatic, normocephalic, other (Tenderness to the right parietal and temporal scalp) Eye exam: Present: normal appearance, PERRL, EOMI. Absent: scleral icterus, conjunctival injection, nystagmus ENT exam: Present: normal external ear exam Neck exam: Present: normal inspection, tenderness, full ROM. Absent: mening ismus Respiratory exam: Present: normal lung sounds bilaterally. Absent: respiratory distress, wheezes, rales, rhonchi, stridor, chest wall tenderness Cardiovascular Exam: Present: regular rate, normal rhythm, normal heart sounds. Absent: systolic murmur, diastolic murmur, rubs, gallop GI/Abdominal exam: Present: soft. Absent: distended, tenderness Extremities exam: Present: normal inspection, full ROM, normal capillary refill. Absent: tenderness Back exam: Present: normal inspection. Absent: CVA tenderness (R), CVA tenderness (L), vertebral tenderness Neurological exam: Present: alert, oriented X3, CN II-XII intact. Absent: motor sensory deficit Skin exam: Present: warm, dry, intact, normal color. Absent: rash Course Vital Signs 03/24/21 20:46 Pulse Rate 80 Respiratory 18 Rate Blood Pressure 146/87 O2 Sat by Pulse 95 Oximetry Disposition Clinical Impression: Fall, Head injury Disposition: HOME SELF-CARE Condition: Good Instructions (If sedation given, give patient instructions): Fall Prevention (ED) Is patient prescribed a controlled substance at d/c from ED?: No Referrals: Daniel Moreno DO [Primary Care Provider] - 1-2 days
--- NOTE | 2021-03-24 22:57 | CT ---
EXAMINATION TYPE: CT brain cspine wo con DATE OF EXAM: 03/24/2021 COMPARISON: July 24, 2018 HISTORY: fall, pain CT DLP: 1659.9 mGycm Automated exposure control for dose reduction was used. Ventricles and sulci appear normal. There is no mass effect nor midline shift. There is no sign of in tracranial hemorrhage. Calvarium is intact. There is normal aeration of the mastoid sinuses. Cervical vertebra have normal spacing and alignment. Posterior elements are intact. Facet joints are intact. Prevertebral soft tissues appear normal. IMPRESSION: Negative CT scan of the brain. Negative CT scan of the cervical spine.
== END 2021-03-25 00:20 | disposition home or self-care (01) ==
LOC: EC 20:42
DX: S09.90XA Unspecified injury of head, initial encounter (principal); Z79.1 Long term (current) use of non-steroidal anti-inflammatories (NSAID); W10.9XXA Fall (on) (from) unspecified stairs and steps, initial encounter; Y92.009 Unspecified place in unspecified non-institutional (private) residence as the place of occurrence of the external cause
CPT/HCPCS: 72125; 70450; 96372; 99284; J2270

== ENCOUNTER 2021-10-31 11:43 | Emergency (ER) | payer OTHER ==
--- NOTE | 2021-10-31 15:46 | ED ---
General Adult HPI - General Chief complaint: Headache Stated complaint: dizziness, headache, fever Time Seen by Provider: 10/31/21 15:18 Source: patient Mode of arrival: ambulatory Limitations: no limitations - History of Present Illness Initial comments: This 51-year-old female presents to the emergency department with headache, nasal congestion, body aches, chills and cough that began on Thursday. Patient states she did take Benadryl for her symptoms which minimally helped. Patient denies having the COVID-19 vaccine. Patient states she does have a cough that does produce a little bit of clear phlegm. Patient states she has not taken her temperature at home but has experienced some body aches and chills. Patient does not believe she has been exposed to any sick contacts recently but states she did go to the eye doctor earlier last week. Patient denies having any chest pain, shortness of breath, abdominal pain, nausea, vomiting, change in bowel or bladder, change in appetite, lightheadedness, dizziness, headache, change in vision, rash. - Related Data Previous Rx's Medication Instructions Recorded Fluticasone Nasal [place] [Flonase 1 spray EA NOSTRIL DAILY #1 bottle 04/24/16 Nasal [place]] Loratadine-Pseudoeph 5-120 mg 1 each PO Q12HR #30 tab 04/24/16 [Claritin-D 12 HR] Erythromycin Ophth Oint [Romycin 1 applic RIGHT EYE QID 7 Days gm 01/04/17 Ophth Oint] Ibuprofen [Motrin] 600 mg PO Q8HR PRN #30 tab 01/06/17 Tobramycin [Tobrex 0.3% Ophth Soln] 1 drop RIGHT EYE Q4HR #5 ml 01/06/17 Benzonatate [Tessalon Perles] 100 mg PO TID #15 cap 04/13/17 Mupirocin Calcium 2% Cream 1 applic TOPICAL BID #1 tube 07/14/17 [Bactroban 2% Cream] Sulfamethox-Tmp 800-160Mg [Bactrim 2 tab PO Q12HR #40 tab 07/14/17 DS 800-160 mg] Amoxicillin 10 ml PO BID #200 ml 07/08/19 Amoxicillin/Potassium Clav 1 tab PO Q12HR #20 tab 02/27/20 [Augmentin 875-125 Tablet] Dexamethasone [Decadron] 6 mg PO DAILY #5 tablet 10/31/21 Allergies Allergy/AdvReac Type Severity Reaction Status Date / Time acetaminophen Allergy Dyspnea Verified 10/31/21 13:05 [From Darvocet-N] meperidine HCl [From Demerol] Allergy Anaphylaxis Verified 10/31/21 13:05 propoxyphene Allergy Dyspnea Verified 10/31/21 13:05 [From Darvocet-N] propoxyphene napsylate Allergy Anaphylaxis Verified 10/31/21 13:05 [From Darvocet-N 100] ketorolac AdvReac Chest Pain Verified 10/31/21 13:05 Review of Systems ROS Statement: Those systems with pertinent positive or pertinent negative responses have been documented in the HPI. ROS Other: All systems not noted in ROS Statement are negative. Past Medical History Past Medical History: No Reported History History of Any Multi-Drug Resistant Organisms: MRSA Date of last positivie culture/infection: 07/14/17 MDRO Source:: abdomen Past Surgical History: Section, Cholecystectomy, Hysterectomy Past Psychological History: No Psychological Hx Reported Smoking Status: Never smoker Past Alcohol Use History: None Reported Past Drug Use History: None Reported General Exam Limitations: no limitations General appearance: alert, in no apparent distress Head exam: Present: atraumatic, normocephalic, normal inspection Eye exam: Present: normal appearance, PERRL, EOMI. Absent: scleral icterus, conjunctival injection, periorbital swelling Pupils: Present: normal accommodation ENT exam: Present: normal exam, normal oropharynx (Uvula midline, no erythema, exudates or abscesses visualized.), mucous membranes moist Neck exam: Present: normal inspection, full ROM. Absent: tenderness, meningis mus, lymphadenopathy Respiratory exam: Present: normal lung sounds bilaterally. Absent: respiratory distress, wheezes, rales, rhonchi, stridor, chest wall tenderness, accessory muscle use, decreased breath sounds Cardiovascular Exam: Present: regular rate, normal rhythm, normal heart sounds. Absent: systolic murmur, diastolic murmur, rubs, gallop, clicks GI/Abdominal exam: Present: soft, normal bowel sounds. Absent: distended, tenderness, guarding, rebound, rigid Extremities exam: Present: normal inspection, full ROM, normal capillary refill. Absent: tenderness, pedal edema, joint swelling, calf tenderness Back exam: Present: full ROM. Absent: CVA tenderness (R), CVA tenderness (L), paraspinal tenderness, vertebral tenderness Neurological exam: Present: alert, oriented X3, CN II-XII intact Psychiatric exam: Present: normal affect, normal mood Skin exam: Present: warm, dry, intact, normal color. Absent: rash Course Vital Signs 10/31/21 13:02 Temperature 99.3 F Pulse Rate 93 Respiratory 18 Rate Blood Pressure 130/81 O2 Sat by Pulse 96 Oximetry Medical Decision Making - Medical Decision Making This 51-year-old female presents emergency department with headache, nasal congestion, body aches, chills and cough 5 days. Patient tested positive for COVID-19. I did inform patient about COVID-19 antibody infusion, however patient refused COVID-19 antibody infusion and stated she would just like to go home and rest. Decadron 6 mg daily given 5 days. Patient instructed to follow-up with her primary care provider next 1-2 days. Strict return precautions were discussed. Patient verbally agreed to plan. Patient sent home in stable condition. Case discussed in detail with my attending, . - Lab Data Lab Results 10/31/21 Range/Units 13:07 Coronavirus (PCR) Detected A (Not Detectd) Disposition Clinical Impression: COVID-19 Disposition: HOME SELF-CARE Condition: Stable Instructions (If sedation given, give patient instructions): COVID-19 (Coronavirus Disease 2019) (ED) Additional Instructions: Please follow-up with your primary care provider in the next 1-2 days. Take Decadron as directed. Return to the emergency department with any new, worsening or concerning symptoms. Advised to get pulse oximeter from [facility] and return to the emergency department if level us ever below 90%. Prescriptions: Dexamethasone [Decadron] 6 mg PO DAILY #5 tablet Is patient prescribed a controlled substance at d/c from ED?: No Referrals: aDniel Moreno DO [Primary Care Provider] - 1-2 days Time of Disposition: 15:48
[2021-10-31 16:15] VITALS: BP 143/91; PULSE 96; RESP 16; TEMP 99
== END 2021-10-31 16:15 | disposition home or self-care (01) ==
LOC: EC 11:43
DX: U07.1 COVID-19 (principal)
CPT/HCPCS: 87635; 99284

== ENCOUNTER → 2021-12-10 | Outpatient (CLI) | payer OTHER ==
--- NOTE | 2021-12-10 13:29 | XR ---
EXAMINATION TYPE: XR chest 2V DATE OF EXAM: 12/10/2021 COMPARISON: X-ray dated 04/13/2017 HISTORY: Dyspnea TECHNIQUE: Frontal and lateral views of the chest are obtained. FINDINGS: Questionable minimal left basal pulmonary atelectasis. Grossly unremarkable lungs otherwise. No sizab le pleural effusion or definite pneumothorax. No gross cardiomegaly. Cholecystectomy clips. Degenerative changes of the thoracic spine. IMPRESSION: No definite acute pulmonary abnormality identified.
== END | disposition home or self-care (01) ==
LOC: RADXRMAIN 13:05
PROVIDERS: ATTEND Family Medicine
DX: R06.00 Dyspnea, unspecified (principal)
CPT/HCPCS: 71046

== ENCOUNTER 2022-04-14 23:14 | Emergency (ER) | payer OTHER ==
[2022-04-15] VITALS: BP 162/92; PULSE 65; RESP 16; TEMP 98
== END 2022-04-15 02:30 | disposition left against medical advice (07) ==
LOC: EC 23:14
DX: Z53.21 Procedure and treatment not carried out due to patient leaving prior to being seen by health care provider (principal)
CPT/HCPCS: 87635; 99499

== ENCOUNTER 2023-09-01 18:51 | Emergency (ER) | payer OTHER ==
[2023-09-01 19:30] VITALS: TEMP 98.3
--- NOTE | 2023-09-01 20:03 | ED ---
Abdominal Pain HPI - General Chief Complaint: Abdominal Pain Stated Complaint: Abd Pain Source: patient Mode of arrival: ambulatory Limitations: no limitations - History of Present Illness Initial Comments: Is a 53-year-old female who presents the ER today for evaluation of acute onset of nausea vomiting a couple episodes of diarrhea and epigastric abdominal pain. Patient reports she ate lunch at a restaurant, she had fried fish and about an hour later developed symptoms. - Related Data Previous Rx's Medication Instructions Recorded Fluticasone Nasal [place] [Flonase 1 spray EA NOSTRIL DAILY #1 bottle 04/24/16 Nasal [place]] Loratadine-Pseudoeph 5-120 mg 1 each PO Q12HR #30 tab 04/24/16 [Claritin-D 12 HR] Erythromycin Ophth Oint [Romycin 1 applic RIGHT EYE QID 7 Days gm 01/04/17 Ophth Oint] Ibuprofen [Motrin] 600 mg PO Q8HR PRN #30 tab 01/06/17 Tobramycin [Tobrex 0.3% Ophth Soln] 1 drop RIGHT EYE Q4HR #5 ml 01/06/17 Benzonatate [Tessalon Perles] 100 mg PO TID #15 cap 04/13/17 Mupirocin Calcium 2% Cream 1 applic TOPICAL BID #1 tube 07/14/17 [Bactroban 2% Cream] Sulfamethox-Tmp 800-160Mg [Bactrim 2 tab PO Q12HR #40 tab 07/14/17 DS 800-160 mg] Amoxicillin 10 ml PO BID #200 ml 07/08/19 Amoxicillin/Potassium Clav 1 tab PO Q12HR #20 tab 02/27/20 [Augmentin 875-125 Tablet] dexAMETHasone [Decadron] 6 mg PO DAILY #5 tablet 10/31/21 Allergies Allergy/AdvReac Type Severity Reaction Status Date / Time acetaminophen Allergy Dyspnea Verified 04/14/22 23:57 [From Darvocet-N] meperidine HCl [From Demerol] Allergy Anaphylaxis Verified 04/14/22 23:57 propoxyphene Allergy Dyspnea Verified 04/14/22 23:57 [From Darvocet-N] propoxyphene napsylate Allergy Anaphylaxis Verified 04/14/22 23:57 [From Darvocet-N 100] ketorolac AdvReac Chest Pain Verified 04/14/22 23:57 Review of Systems ROS Statement: Those systems with pertinent positive or pertinent negative responses have been documented in the HPI. ROS Other: All systems not noted in ROS Statement are negative. Past Medical History Past Medical History: No Reported History History of Any Multi-Drug Resistant Organisms: MRSA Date of last positivie culture/infection: 07/14/17 MDRO Source:: abdomen Past Surgical History: Section, Cholecystectomy, Hysterectomy Past Psychological History: No Psychological Hx Reported Smoking Status: Never smoker Past Alcohol Use History: None Reported Past Drug Use History: None Reported General Exam - General Exam Comments Initial Comments: Physical Exam GENERAL: Ill-appearing, holding back vomit HENT: Normocephalic, Atraumatic. EYES: PERRL, EOMI PULMONARY: Unlabored respirations. CARDIOVASCULAR: RRR Warm and well perfused extremities ABDOMEN: Mild tenderness in upper abdomen SKIN: No rashes or bruising : Deferred NEUROLOGIC: Alert and oriented Normal speech Normal gait MUSCULOSKELETAL: Moving all extremities with no apparent injury PSYCHIATRIC: No SI/HI Limitations: no limitations Course Vital Signs 09/01/23 09/01/23 19:08 21:52 Temperature 98.3 F Pulse Rate 57 L 63 Respiratory 20 18 Rate Blood Pressure 176/100 185/92 O2 Sat by Pulse 97 99 Oximetry Medical Decision Making - Medical Decision Making Was pt. sent in by a medical professional or institution (STEVE Aj, [employer] PROCESSOR, urgent care, hospital, or group home...) When possible be specific @ -No Did you speak to anyone other than the patient for history (EMS, parent, family, police, friend...)? What history was obtained from this source @ -No Did you review nursing and triage notes (agree or disagree)? Why? @ -I reviewed and agree with nursing and triage notes Were old charts reviewed (outside hosp., previous admission, EMS record, old EKG, old radiological studies, urgent care reports/EKG's, group home records)? Report findings @ -No old charts were reviewed Differential Diagnosis (chest pain, altered mental status, abdominal pain women, abdominal pain men, vaginal bleeding, weakness, fever, dyspnea, syncope, headache, dizziness, GI bleed, back pain, seizure, CVA, palpatations, mental health)? @ -Not applicable EKG interpreted by me (3pts min.). @ -As above X-rays interpreted by me (1pt min.). @ -None done CT interpreted by me (1pt min.). @ -Multiple right-sided kidney stones moderate hydronephrosis there appears to be a stone at the UVJ U/S interpreted by me (1pt. min.). @ -None done What testing was considered but not performed or refused? (CT, X-rays, U/S, labs)? Why? @ -None What meds were considered but not given or refused? Why? @ -Toradol was held due to allergy, Bentyl was not given due to patient's refusal Did you discuss the management of the patient with other professionals (professionals i.e. DrMegan, PA, ESCROW PROCESSOR, lab, RT, psych nurse, secondary social studies teacher, armament repairer, teacher, credit compliance officer, case folder)? Give summary @ -No Was smoking cessation discussed for >3mins.? @ -No Was critical care preformed (if so, how long)? @ -No Were there social determinants of health that impacted care today? How? (Homelessness, low income, unemployed, alcoholism, drug addiction, trans portation, low edu. Level, literacy, decrease access to med. care, correction, rehab)? @ -No Was there de-escalation of care discussed even if they declined (Discuss DNR or withdrawal of care, Hospice)? DNR status @ -No What co-morbidities impacted this encounter? (DM, HTN, Smoking, COPD, CAD, Cancer, CVA, ARF, Chemo, Hep., AIDS, mental health diagnosis, sleep apnea, morbid obesity)? @ -Morbid obesity Was patient admitted / discharged? Hospital course, mention meds given and route, prescriptions, significant lab abnormalities, going to OR and other pertinent info. @ -Discharge Patient was seen and evaluated, history is obtained from patient. Patient with nausea vomiting and frequent stooling after eating at a restaurant however she also has urinary frequency and right-sided flank pain. Labs were unremarkable CT scan without contrast was ordered and does reveal mildly obstructing 3 mm UVJ Strone. Upon reevaluation patient sleeping comfortably. I suspect the stone is likely passed at this point. Patient comfortable plan for discharge home with supportive care. Undiagnosed new problem with uncertain prognosis? @ -No Drug Therapy requiring intensive monitoring for toxicity (Heparin, Nitro, Insulin, Cardizem)? @ -No Were any procedures done? @ -No Diagnosis/symptom? @ -Kidney stone Acute, or Chronic, or Acute on Chronic? @ -Acute Uncomplicated (without systemic symptoms) or Complicated (systemic symptoms)? @ -Complicated Side effects of treatment? @ -No Exacerbation, Progression, or Severe Exacerbation? @ -No Poses a threat to life or bodily function? How? (Chest pain, USA, CT, pneumonia, PE, COPD, DKA, ARF, appy, cholecystitis, CVA, Diverticulitis, Homicidal, Suic idal, threat to staff... and all critical care pts) @ -Unlikely - Lab Data Result diagrams: 09/01/23 20:05 09/01/23 20:05 Lab Results 09/01/23 09/01/23 Range/Units 20:05 20:05 WBC 10.9 H (3.8-10.6) k/uL RBC 4.88 (3.80-5.40) m/uL Hgb 14.2 (11.4-16.0) gm/dL Hct 43.9 (34.0-46.0) % MCV 89.9 (80.0-100.0) fL MCH 29.1 (25.0-35.0) pg MCHC 32.3 (31.0-37.0) g/dL RDW 13.7 (11.5-15.5) % Plt Count 236 (150-450) k/uL MPV 9.0 Neutrophils % 85 % Lymphocytes % 11 % Monocytes % 3 % Eosinophils % 1 % Basophils % 0 % Neutrophils # 9.2 H (1.3-7.7) k/uL Lymphocytes # 1.2 (1.0-4.8) k/uL Monocytes # 0.4 (0-1.0) k/uL Eosinophils # 0.1 (0-0.7) k/uL Basophils # 0.0 (0-0.2) k/uL Sodium 142 (137-145) mmol/L Potassium 4.0 (3.5-5.1) mmol/L Chloride 108 H (98-107) mmol/L Carbon Dioxide 21 L (22-30) mmol/L Anion Gap 13 mmol/L BUN 16 (7-17) mg/dL Creatinine 0.70 (0.52-1.04) mg/dL Est GFR (CKD-EPI)AfAm >90 (>60 ml/min/1.73 sqM) Est GFR (CKD-EPI)NonAf >90 (>60 ml/min/1.73 sqM) Glucose 152 H (74-99) mg/dL Calcium 11.0 H (8.4-10.2) mg/dL Total Bilirubin 1.0 (0.2-1.3) mg/dL AST 45 H (14-36) U/L ALT 29 (4-34) U/L Alkaline Phosphatase 127 H (38-126) U/L Total Protein 8.0 (6.3-8.2) g/dL Albumin 4.5 (3.5-5.0) g/dL Lipase 78 (23-300) U/L Disposition Clinical Impression: Kidney stone on right side, Nausea and vomiting Disposition: HOME SELF-CARE Condition: Stable Instructions (If sedation given, give patient instructions): Kidney Stones (ED) Is patient prescribed a controlled substance at d/c from ED?: No Referrals: Daniel Moreno DO [Primary Care Provider] - 1-2 days
[2023-09-01] MEDS: ONDANSETRON 4 MG/2 ML VIAL IVP STA (20:12)
[2023-09-01] MEDS: SODIUM CHLORIDE 0.9% 1,000 ML IV STA (20:12)
[2023-09-01 20:38] LABS: Basophils % (A) 0 %; Eosinophils # (A) 0.1 k/uL (0-0.7); Eosinophils % (A) 1 %; HCT 43.9 % (34.0-46.0); HGB 14.2 gm/dL (11.4-16.0); Lymphocytes # (A) 1.2 k/uL (1.0-4.8); Lymphocytes % (A) 11 %; MCH 29.1 pg (25.0-35.0); MCHC 32.3 g/dL (31.0-37.0); MCV 89.9 fL (80.0-100.0); Monocytes # (A) 0.4 k/uL (0-1.0); Monocytes % (A) 3 %; Neutrophils # (A) 9.2 k/uL (1.3-7.7); Neutrophils % (A) 85 %; Platelet Count 236 k/uL (150-450); RBC 4.88 m/uL (3.80-5.40); RDW 13.7 % (11.5-15.5); WBC 10.9 k/uL (3.8-10.6)
[2023-09-01 20:56] LABS: ALT 29 U/L (4-34); AST 45 U/L (14-36); African American GFR (CKD) >90 (>60 ml/min/1.73 sqM); Albumin 4.5 g/dL (3.5-5.0); Alkaline Phosphatase 127 U/L (38-126); Anion Gap 13 mmol/L; Blood Urea Nitrogen 16 mg/dL (7-17); Carbon Dioxide 21 mmol/L (22-30); Chloride 108 mmol/L (98-107); Glucose 152 mg/dL (74-99); Lipase 78 U/L (23-300); Non-African American GFR(CKD) >90 (>60 ml/min/1.73 sqM); Sodium 142 mmol/L (137-145)
[2023-09-01] MEDS: DICYCLOMINE 10 MG/ML 2 ML AMP IM STA (21:11)
[2023-09-01] MEDS: MORPHINE SULFATE 4 MG/ML SYRINGE IVP STA (22:48)
--- NOTE | 2023-09-01 22:52 | CT ---
EXAMINATION TYPE: CT abdomen pelvis wo con DATE OF EXAM: 09/01/2023 HISTORY: c/o generalized abdomen pain bloating with urgency to urinate. +nausea vomiting. Right flank pain. CT DLP: 1489 mGycm. Automated Exposure Control for Dose Reduction was Utilized. TECHNIQUE: CT scan of the abdomen and pelvis is performed without oral or IV contrast. COMPARISON: NONE FINDINGS: Within the limitations of a non-contrast study, the following observations are made. LUNG BASES: No significant abnormality is appreciated. LIVER/GB: Cholecystectomy clips are seen. PANCREAS: No significant abnormality is seen. SPLEEN: No significant abnormality is seen. ADRENALS: No significant abnormality is seen. KIDNEYS: There is 2 to 3 mm nonobstructing calculus lower pole left kidney coronal image 63 and 2 mm obstructing calculus mid pole of the left kidney coronal image 69. No left-sided hydronephrosis. Ther e is an 11 mm calculus lower pole right kidney coronal image 57. There is mild right-sided hydronephr osis due to obstructing 3 mm calculus at the right UVJ axial image 140. BOWEL: Appendix within normal limits from base of cecum. No abnormal small or large bowel dilatation. GENITAL ORGANS: No gross abnormality seen. LYMPH NODES: No greater than 1cm abdominal or pelvic lymph nodes are appreciated. OSSEOUS STRUCTURES: Slight grade 1 anterolisthesis L4 on L5. Prominent facet arthropathy lower lumbar spine. OTHER: Small to moderate-size fat-containing umbilical hernia sagittal image 72. IMPRESSION: Mild right-sided hydronephrosis due to obstructing 3 mm calculus at right UVJ.
[2023-09-02 00:17] VITALS: BP 166/83; PULSE 56; RESP 16
== END 2023-09-02 00:03 | disposition home or self-care (01) ==
LOC: EC 18:51
DX: N13.2 Hydronephrosis with renal and ureteral calculous obstruction (principal); Z90.49 Acquired absence of other specified parts of digestive tract; Z88.5 Allergy status to narcotic agent; Z88.6 Allergy status to analgesic agent
CPT/HCPCS: 36415; 80053; 83690; 85025; 74176; 99284; 96374; 96375; 96361; J2270; J2405

== ENCOUNTER 2023-11-20 19:13 | Emergency (ER) | payer OTHER ==
[2023-11-20 19:42] VITALS: RESP 18
--- NOTE | 2023-11-20 19:53 | ED ---
Headache HPI - General Source: patient, RN notes reviewed Mode of arrival: ambulatory Limitations: no limitations <Rosa Vanessa - Last Filed: 11/20/23 19:52> <Deann Diallo - Last Filed: 11/25/23 01:46> - General Chief Complaint: Headache Stated Complaint: Head injury from foreign object Time Seen by Provider: 11/20/23 19:52 - History of Present Illness Initial Comments: 53-year-old female presenting with chief complaint of headache. Patient had a storm window fell on top of her head yesterday. The window fell from about shoulder height. She did have a 30sec loss of consciousness according to her ex- who was there. In addition to headache she admits to dizziness and nausea. He admits to light sensitivity. (Rosa Vanessa) 53-year-old female presents to the emergency department for evaluation of head injury. Patient states that yesterday a thick pane window fell on her head. She states that it fell on the top of her head. She notes that she did have loss of consciousness from this lasting about 30 seconds. This was witnessed by her ex-. She does report headache diffusely throughout her head. She admits to nausea without vomiting. Patient also reports some dizziness. She states that she took ibuprofen at home without relief. She denies blood thinners. Denies any other injury. (Deann Diallo) - Related Data Previous Rx's Medication Instructions Recorded Fluticasone Nasal [place] [Flonase 1 spray EA NOSTRIL DAILY #1 bottle 04/24/16 Nasal [place]] Loratadine-Pseudoeph 5-120 mg 1 each PO Q12HR #30 tab 04/24/16 [Claritin-D 12 HR] Erythromycin Ophth Oint [Romycin 1 applic RIGHT EYE QID 7 Days gm 01/04/17 Ophth Oint] Ibuprofen [Motrin] 600 mg PO Q8HR PRN #30 tab 01/06/17 Tobramycin [Tobrex 0.3% Ophth Soln] 1 drop RIGHT EYE Q4HR #5 ml 01/06/17 Benzonatate [Tessalon Perles] 100 mg PO TID #15 cap 04/13/17 Mupirocin Calcium 2% Cream 1 applic TOPICAL BID #1 tube 07/14/17 [Bactroban 2% Cream] Sulfamethox-Tmp 800-160Mg [Bactrim 2 tab PO Q12HR #40 tab 07/14/17 DS 800-160 mg] Amoxicillin 10 ml PO BID #200 ml 07/08/19 Amoxicillin/Potassium Clav 1 tab PO Q12HR #20 tab 02/27/20 [Augmentin 875-125 Tablet] dexAMETHasone [Decadron] 6 mg PO DAILY #5 tablet 10/31/21 Allergies Allergy/AdvReac Type Severity Reaction Status Date / Time acetaminophen Allergy Dyspnea Verified 11/20/23 19:25 [From Darvocet-N] meperidine HCl [From Demerol] Allergy Anaphylaxis Verified 11/20/23 19:25 propoxyphene Allergy Dyspnea Verified 11/20/23 19:25 [From Darvocet-N] propoxyphene napsylate Allergy Anaphylaxis Verified 11/20/23 19:25 [From Darvocet-N 100] ketorolac AdvReac Chest Pain Verified 11/20/23 19:25 Review of Systems ROS Other: All systems not noted in ROS Statement are negative. <Rosa Vanessa - Last Filed: 11/20/23 19:52> ROS Other: All systems not noted in ROS Statement are negative. <Deann Diallo - Last Filed: 11/25/23 01:46> ROS Statement: Those systems with pertinent positive or pertinent negative responses have been documented in the HPI. Past Medical History Past Medical History: No Reported History History of Any Multi-Drug Resistant Organisms: None Reported, MRSA Date of last positivie culture/infection: 07/14/17 MDRO Source:: abdomen Past Surgical History: Section, Cholecystectomy, Hysterectomy Past Psychological History: No Psychological Hx Reported Smoking Status: Never smoker Past Alcohol Use History: None Reported Past Drug Use History: None Reported <Rosa Vanessa - Last Filed: 11/20/23 19:52> General Exam Limitations: no limitations <Rosa Vanessa - Last Filed: 11/20/23 19:52> Limitations: no limitations General appearance: alert, in no apparent distress Head exam: Present: atraumatic, normocephalic, normal inspection, other (Scalp tenderness to palpation without obvious hematoma, laceration or abrasion) Eye exam: Present: normal appearance, PERRL, EOMI. Absent: scleral icterus, conjunctival injection, periorbital swelling ENT exam: Present: normal exam, mucous membranes moist, TM's normal bilaterally, normal external ear exam Neck exam: Present: normal inspection, full ROM. Absent: tenderness, meningismus, lymphadenopathy Respiratory exam: Present: normal lung sounds bilaterally. Absent: respiratory distress, wheezes, rales, rhonchi, stridor Cardiovascular Exam: Present: regular rate, normal rhythm, normal heart sounds. Absent: systolic murmur, diastolic murmur, rubs, gallop, clicks Extremities exam: Present: normal inspection, full ROM, normal capillary refill. Absent: tenderness, pedal edema, joint swelling, calf tenderness Back exam: Present: normal inspection Neurological exam: Present: alert, oriented X3, CN II-XII intact, normal gait. Absent: motor sensory deficit Psychiatric exam: Present: normal affect, normal mood Skin exam: Present: warm, dry, intact, normal color. Absent: rash <Deann Diallo - Last Filed: 11/25/23 01:46> - General Exam Comments Initial Comments: Visual Physical Exam Vital signs reviewed General: Well-appearing, nontoxic, no acute distress. Head: Normocephalic, atraumatic Eyes: PERRLA, EOMI ENT: Airway patent Chest: Nonlabored breathing Skin: No visual rash, normal skin tone Neuro: Alert and oriented 3 Musculoskeletal: No gross abnormalities (Rosa Vanessa) Course Vital Signs 11/20/23 11/21/23 19:17 00:04 Temperature 98.1 F 97.8 F Pulse Rate 75 65 Respiratory 18 18 Rate Blood Pressure 171/94 170/100 O2 Sat by Pulse 99 99 Oximetry Medical Decision Making <Rosa Vanessa - Last Filed: 11/20/23 19:52> <Deann Diallo - Last Filed: 11/25/23 01:46> - Medical Decision Making I performed the quick note portion of this visit, electronically signed Rosa Vanessa PA-C (Rosa Vanessa) Was pt. sent in by a medical professional or institution (STEVE Aj, DYEHOUSE WORKER, urgent care, hospital, or custodial...) When possible be specific @ -No Did you speak to anyone other than the patient for history (EMS, parent, family, police, friend...)? What history was obtained from this source @ -No Did you review nursing and triage notes (agree or disagree)? Why? @ -I reviewed and agree with nursing and triage notes Were old charts reviewed (outside hosp., previous admission, EMS record, old EKG, old radiological studies, urgent care reports/EKG's, custodial records)? Report findings @ -No old charts were reviewed Differential Diagnosis (chest pain, altered mental status, abdominal pain women, abdominal pain men, vaginal bleeding, weakness, fever, dyspnea, syncope, headache, dizziness, GI bleed, back pain, seizure, CVA, palpatations, mental health, musculoskeletal)? @ -Head injury, concussion, laceration, intracranial hemorrhage, this list is not all inclusive EKG interpreted by me (3pts min.). @ -None X-rays interpreted by me (1pt min.). @ -None done CT interpreted by me (1pt min.). @ -CT brain was obtained which shows no evidence of acute intracranial hemorrhage or mass effect U/S interpreted by me (1pt. min.). @ -None done What testing was considered but not performed or refused? (CT, X-rays, U/S, labs)? Why? @ -None What meds were considered but not given or refused? Why? @ -None Did you discuss the management of the patient with other professionals (professionals i.e. , PA, DYEHOUSE WORKER, lab, RT, psych nurse, social service worker, clinical research assistant, teacher, hospital chief executive officer, rifle case repairer)? Give summary @ -No Was smoking cessation discussed for >3mins.? @ -No Was critical care preformed (if so, how long)? @ -No Were there social determinants of health that impacted care today? How? (Homelessness, low income, unemployed, alcoholism, drug addiction, transportation, low edu. Level, literacy, decrease access to med. care, long term, rehab)? @ -No Was there de-escalation of care discussed even if they declined (Discuss DNR or withdrawal of care, Hospice)? DNR status @ -No What co-morbidities impacted this encounter? (DM, HTN, Smoking, COPD, CAD, Cancer, CVA, ARF, Chemo, Hep., AIDS, mental health diagnosis, sleep apnea, morbid obesity)? @ -None Was patient admitted / discharged? Hospital course, mention meds given and route, prescriptions, significant lab abnormalities, going to OR and other pertinent info. @ -Discharge. Patient presented to the emergency department for evaluation of head injury with loss of consciousness. She is not on blood thinners. CT brain was obtained which showed no evidence of acute intracranial process. Patient was provided medication for pain and nausea control while in the emergency department. She will be discharged home. Advised symptomatic treatment at this time. Strict return precautions discussed. Patient stable at time of discharge. Case discussed with Dr. Zapata Undiagnosed new problem with uncertain prognosis? @ -No Drug Therapy requiring intensive monitoring for toxicity (Heparin, Nitro, Insulin, Cardizem)? @ -No Were any procedures done? @ -No Diagnosis/symptom? @ -Head injury Acute, or Chronic, or Acute on Chronic? @ -Acute Uncomplicated (without systemic symptoms) or Complicated (systemic symptoms)? @ -uncomplicated Side effects of treatment? @ -No Exacerbation, Progression, or Severe Exacerbation? @ -No Poses a threat to life or bodily function? How? (Chest pain, [place], [place], pneumonia, PE, COPD, DKA, ARF, appy, cholecystitis, CVA, Diverticulitis, Homicidal, Suicidal, threat to staff... and all critical care pts) @ -No (Deann Diallo) Disposition <Rosa Vanessa - Last Filed: 11/20/23 19:52> Is patient prescribed a controlled substance at d/c from ED?: No <Deann Diallo - Last Filed: 11/25/23 01:46> Clinical Impression: Head injury, Concussion Disposition: HOME SELF-CARE Condition: Stable Instructions (If sedation given, give patient instructions): Concussion (ED) Additional Instructions: Please follow up with your primary care provider. Return to the emergency department for new or worsening symptoms. Referrals: Daniel Moreno DO [Primary Care Provider] - 1-2 days
[2023-11-20] MEDS: IBUPROFEN 600 MG TAB PO STA (22:19)
--- NOTE | 2023-11-20 22:26 | CT ---
EXAMINATION TYPE: CT brain wo con CT DLP: 1095.4 mGycm, Automated exposure control for dose reduction was used. DATE OF EXAM: 11/20/2023 8:21 PM COMPARISON: None.. CLINICAL INDICATION:Female, 53 years old with history of LEGGETT, dizzy, nausea, LEGGETT, dizzy, nausea. TECHNIQUE: Brain: Axial CT images of the brain were obtained with coronal and sagittal reformats created and rev iewed. Contrast used: None. Oral contrast used: None. FINDINGS: Extra-axial spaces: No abnormal extra-axial fluid collections. Basilar cisterns are patent. Ventricular system: Within normal limits. Cerebral parenchyma: No increased attenuation to suggest acute intraparenchymal hemorrhage. The gra y-white matter interface appears maintained. No significant atrophy. White matter unremarkable by C T. Cerebellum: No acute abnormality. Mass effect: No evidence of mass effect or midline shift. Intracranial vasculature: Unremarkable Soft tissues: No acute or concerning abnormality. Visualized orbits: Orbital contents appear grossly intact. Calvarium/osseous structures: No evidence of calvarial fracture. Paranasal sinuses and mastoid air cells: Clear. MRI is more sensitive for detecting acute processes such as infarct, and may be considered if clinica lly warranted. IMPRESSION: No acute intracranial CT abnormality.
[2023-11-20] MEDS: ONDANSETRON ODT 4 MG TAB PO STA (23:42)
[2023-11-20] MEDS: ACET/COD 300 MG/30 MG STARTER PACK 6 TAB BTL PO STA (23:46)
[2023-11-20] MEDS: ONDANSETRON 4 MG ODT STARTER PACK 2 TAB BTL PO STA (23:46)
[2023-11-20] MEDS: IBUPROFEN 600 MG STARTER PACK 4 TAB BTL PO STA (23:47)
[2023-11-21 00:21] VITALS: BP 170/100; PULSE 65; TEMP 97.8
== END 2023-11-21 00:06 | disposition home or self-care (01) ==
LOC: EC 19:13
DX: S06.0X1A Concussion with loss of consciousness of 30 minutes or less, initial encounter (principal); R40.2362 Coma scale, best motor response, obeys commands, at arrival to emergency department; R40.2142 Coma scale, eyes open, spontaneous, at arrival to emergency department; R40.2252 Coma scale, best verbal response, oriented, at arrival to emergency department; Z88.6 Allergy status to analgesic agent; Z88.5 Allergy status to narcotic agent; Z88.8 Allergy status to other drugs, medicaments and biological substances; W20.8XXA Other cause of strike by thrown, projected or falling object, initial encounter
CPT/HCPCS: 70450; 99284; S0119; 99285

== ENCOUNTER 2023-12-27 01:04 | Emergency (ER) | payer OTHER ==
[2023-12-27] MEDS: SODIUM CHLORIDE 0.9% 1,000 ML IV STA (01:53)
[2023-12-27] MEDS: MORPHINE SULFATE 2 MG/ML SYRINGE IVP STA (01:54)
[2023-12-27] MEDS: ONDANSETRON 4 MG/2 ML VIAL IVP STA (01:59)
[2023-12-27 02:30] LABS: Basophils % (A) 0 %; Eosinophils # (A) 0.1 k/uL (0-0.7); Eosinophils % (A) 1 %; HGB 13.8 gm/dL (11.4-16.0); Lymphocytes % (A) 9 %; MCH 28.9 pg (25.0-35.0); MCHC 31.3 g/dL (31.0-37.0); MCV 92.1 fL (80.0-100.0); Mean Platelet Volume 8.3; Monocytes # (A) 0.3 k/uL (0-1.0); Monocytes % (A) 3 %; Neutrophils # (A) 9.9 k/uL (1.3-7.7); Neutrophils % (A) 86 %; Platelet Count 222 k/uL (150-450); RBC 4.78 m/uL (3.80-5.40); RDW 13.5 % (11.5-15.5); WBC 11.5 k/uL (3.8-10.6)
[2023-12-27 02:41] LABS: ALT 29 U/L (4-34); AST 43 U/L (14-36); African American GFR (CKD) >90 (>60 ml/min/1.73 sqM); Albumin 4.2 g/dL (3.5-5.0); Alkaline Phosphatase 105 U/L (38-126); Amylase 37 U/L (30-110); Anion Gap 6 mmol/L; Blood Urea Nitrogen 16 mg/dL (7-17); Calcium 10.8 mg/dL (8.4-10.2); Carbon Dioxide 22 mmol/L (22-30); Chloride 111 mmol/L (98-107); Glucose 179 mg/dL (74-99); Lipase 72 U/L (23-300); Non-African American GFR(CKD) >90 (>60 ml/min/1.73 sqM); Potassium 4.2 mmol/L (3.5-5.1); Sodium 139 mmol/L (137-145); Total Protein 7.6 g/dL (6.3-8.2)
--- NOTE | 2023-12-27 03:36 | ED ---
Abdominal Pain HPI <Martinez Mustafa - Last Filed: 12/27/23 05:43> - General Source: patient Mode of arrival: wheelchair Limitations: no limitations <Rosa Vanessa - Last Filed: 12/28/23 04:35> - General Chief Complaint: Abdominal Pain Stated Complaint: abd pain Time Seen by Provider: 12/27/23 01:15 - History of Present Illness Initial Comments: 53-year-old female presenting with chief complaint of abdominal pain. Patient admits to vague abdominal pain which is slightly worse on the right side. States that she feels very bloated. She admits to nausea with no vomiting or diarrhea. Pain started earlier today. Surgical history includes cholecystectomy and hysterectomy. No chest pain or difficulty breathing. She does admit to some urgency and frequency with urination. No hematuria or dysuria. No fevers or chills. No chest pain or difficulty breathing. (Rosa Vanessa) - Related Data Previous Rx's Medication Instructions Recorded Fluticasone Nasal [place] [Flonase 1 spray EA NOSTRIL DAILY #1 bottle 04/24/16 Nasal [place]] Loratadine-Pseudoeph 5-120 mg 1 each PO Q12HR #30 tab 04/24/16 [Claritin-D 12 HR] Erythromycin Ophth Oint [Romycin 1 applic RIGHT EYE QID 7 Days gm 01/04/17 Ophth Oint] Ibuprofen [Motrin] 600 mg PO Q8HR PRN #30 tab 01/06/17 Tobramycin [Tobrex 0.3% Ophth Soln] 1 drop RIGHT EYE Q4HR #5 ml 01/06/17 Benzonatate [Tessalon Perles] 100 mg PO TID #15 cap 04/13/17 Mupirocin Calcium 2% Cream 1 applic TOPICAL BID #1 tube 07/14/17 [Bactroban 2% Cream] Sulfamethox-Tmp 800-160Mg [Bactrim 2 tab PO Q12HR #40 tab 07/14/17 DS 800-160 mg] Amoxicillin 10 ml PO BID #200 ml 07/08/19 Amoxicillin/Potassium Clav 1 tab PO Q12HR #20 tab 02/27/20 [Augmentin 875-125 Tablet] dexAMETHasone [Decadron] 6 mg PO DAILY #5 tablet 10/31/21 Cephalexin [Keflex] 500 mg PO Q12HR 10 Days #20 cap 12/27/23 Allergies Allergy/AdvReac Type Severity Reaction Status Date / Time acetaminophen Allergy Dyspnea Verified 12/27/23 01:08 [From Darvocet-N] meperidine HCl [From Demerol] Allergy Anaphylaxis Verified 12/27/23 01:08 propoxyphene Allergy Dyspnea Verified 12/27/23 01:08 [From Darvocet-N] propoxyphene napsylate Allergy Anaphylaxis Verified 12/27/23 01:08 [From Darvocet-N 100] ketorolac AdvReac Chest Pain Verified 12/27/23 01:08 Review of Systems ROS Other: All systems not noted in ROS Statement are negative. <Martinez Mustafa - Last Filed: 12/27/23 05:43> ROS Other: All systems not noted in ROS Statement are negative. <Rosa Vanessa - Last Filed: 12/28/23 04:35> ROS Statement: Those systems with pertinent positive or pertinent negative responses have been documented in the HPI. Past Medical History Past Medical History: No Reported History History of Any Multi-Drug Resistant Organisms: MRSA Date of last positivie culture/infection: 07/14/17 MDRO Source:: abdomen Past Surgical History: Section, Cholecystectomy, Hysterectomy Past Psychological History: No Psychological Hx Reported Smoking Status: Never smoker Past Alcohol Use History: None Reported Past Drug Use History: None Reported <Rosa Vanessa - Last Filed: 12/28/23 04:35> General Exam Limitations: no limitations General appearance: alert, in no apparent distress Head exam: Present: atraumatic, normocephalic Eye exam: Present: normal appearance, EOMI Neck exam: Present: normal inspection. Absent: meningismus Respiratory exam: Absent: respiratory distress Cardiovascular Exam: Present: regular rate GI/Abdominal exam: Present: soft, tenderness (non-localized). Absent: distended, guarding, rebound, rigid Neurological exam: Present: alert, oriented X3 Psychiatric exam: Present: normal affect, normal mood Skin exam: Present: warm, dry <Rosa Vanessa - Last Filed: 12/28/23 04:35> Course Vital Signs 12/27/23 12/27/23 12/27/23 01:05 02:36 03:05 Temperature 98 F 97.1 F L Pulse Rate 66 61 69 Respiratory 18 13 14 Rate Blood Pressure 152/73 157/99 148/86 O2 Sat by Pulse 97 95 97 Oximetry 12/27/23 06:33 Temperature 98.7 F Pulse Rate 78 Respiratory 20 Rate Blood Pressure 153/95 O2 Sat by Pulse 97 Oximetry Medical Decision Making - Lab Data Result diagrams: 12/27/23 02:18 12/27/23 02:18 <Martinez Mustafa - Last Filed: 12/27/23 05:43> - Lab Data Result diagrams: 12/27/23 02:18 12/27/23 02:18 <Rosa Vanessa - Last Filed: 12/28/23 04:35> - Medical Decision Making Was pt. sent in by a medical professional or institution (Dr. PA, AUTO CRANE DRIVER, urgent care, hospital, or skilled nursing...) When possible be specific @ -No Did you speak to anyone other than the patient for history (EMS, parent, family, police, friend...)? What history was obtained from this source @ -No Did you review nursing and triage notes (agree or disagree)? Why? @ -I reviewed and agree with nursing and triage notes Were old charts reviewed (outside hosp., previous admission, EMS record, old EKG, old radiological studies, urgent care reports/EKG's, skilled nursing records)? Report findings @ -No old charts were reviewed Differential Diagnosis (chest pain, altered mental status, abdominal pain women, abdominal pain men, vaginal bleeding, weakness, fever, dyspnea, syncope, headache, dizziness, GI bleed, back pain, seizure, CVA, palpatations, mental health, musculoskeletal)? @ -MDM Differential Abdominal Pain Women: Appendicitis, Cholecystitis, diverticulosis, ischemic bowel, pancreatitis, hepatitis, UTI, gastroenteritis, AAA, incarcerated hernia, bowel obstruction, constipation, inflammatory bowel, hepatitis, peptic ulcer disease, splenic infarction, perforated viscus, vulvitis, ovarian torsion, PID, kidney stone, placenta abruption... This is not meant to be an all-inclusive list EKG interpreted by me (3pts min.). @ -As above X-rays interpreted by me (1pt min.). @ -None done CT interpreted by me (1pt min.). @ -None done U/S interpreted by me (1pt. min.). @ -None done What testing was considered but not performed or refused? (CT, X-rays, U/S, labs)? Why? @ -None What meds were considered but not given or refused? Why? @ -None Did you discuss the management of the patient with other professionals (professionals i.e. , PA, AUTO CRANE DRIVER, lab, RT, psych nurse, social services manager, medical technician assistant, teacher, control officer, field case manager)? Give summary @ -No Was smoking cessation discussed for >3mins.? @ -No Was critical care preformed (if so, how long)? @ -No Were there social determinants of health that impacted care today? How? (Homeles sness, low income, unemployed, alcoholism, drug addiction, transportation, low edu. Level, literacy, decrease access to med. care, care home, rehab)? @ -No Was there de-escalation of care discussed even if they declined (Discuss DNR or withdrawal of care, Hospice)? DNR status @ -No What co-morbidities impacted this encounter? (DM, HTN, Smoking, COPD, CAD, Cancer, CVA, ARF, Chemo, Hep., AIDS, mental health diagnosis, sleep apnea, morbid obesity)? @ -None Was patient admitted / discharged? Hospital course, mention meds given and route, prescriptions, significant lab abnormalities, going to OR and other pertinent info. @ -53-year-old female presenting with chief complaint of abdominal pain. His tory and physical exam are conducted. Patient does have some vague right-sided tenderness. WBC 11.5. She is given pain and nausea medication. Patient is signed out to my attending Dr. Mustafa pending UA results. (Rosa Vanessa) - Lab Data Lab Results 12/27/23 12/27/23 12/27/23 Range/Units 02:18 02:18 02:18 WBC 11.5 H (3.8-10.6) k/uL RBC 4.78 (3.80-5.40) m/uL Hgb 13.8 (11.4-16.0) gm/dL Hct 44.0 (34.0-46.0) % MCV 92.1 (80.0-100.0) fL MCH 28.9 (25.0-35.0) pg MCHC 31.3 (31.0-37.0) g/dL RDW 13.5 (11.5-15.5) % Plt Count 222 (150-450) k/uL MPV 8.3 Neutrophils % 86 % Lymphocytes % 9 % Monocytes % 3 % Eosinophils % 1 % Basophils % 0 % Neutrophils # 9.9 H (1.3-7.7) k/uL Lymphocytes # 1.0 (1.0-4.8) k/uL Monocytes # 0.3 (0-1.0) k/uL Eosinophils # 0.1 (0-0.7) k/uL Basophils # 0.0 (0-0.2) k/uL Sodium 139 (137-145) mmol/L Potassium 4.2 (3.5-5.1) mmol/L Chloride 111 H (98-107) mmol/L Carbon Dioxide 22 (22-30) mmol/L Anion Gap 6 mmol/L BUN 16 (7-17) mg/dL Creatinine 0.61 (0.52-1.04) mg/dL Est GFR (CKD-EPI)AfAm >90 (>60 ml/min/1.73 sqM) Est GFR (CKD-EPI)NonAf >90 (>60 ml/min/1.73 sqM) Glucose 179 H (74-99) mg/dL Plasma Lactic Acid Ric 1.0 (0.7-2.0) mmol/L Calcium 10.8 H (8.4-10.2) mg/dL Total Bilirubin 1.0 (0.2-1.3) mg/dL AST 43 H (14-36) U/L ALT 29 (4-34) U/L Alkaline Phosphatase 105 (38-126) U/L Total Protein 7.6 (6.3-8.2) g/dL Albumin 4.2 (3.5-5.0) g/dL Amylase 37 (30-110) U/L Lipase 72 (23-300) U/L Urine Color Urine Appearance (Clear) Urine pH (5.0-8.0) Ur Specific [place] (1.001-1.035) Urine Protein (Negative) Urine Glucose (UA) (Negative) Urine Ketones (Negative) Urine Blood (Negative) Urine Nitrite (Negative) Urine Bilirubin (Negative) Urine Urobilinogen (<2.0) mg/dL Ur Leukocyte Esterase (Negative) Urine RBC (0-5) /hpf Urine WBC (0-5) /hpf Ur Squamous Epith Cells (0-4) /hpf Urine Bacteria (None) /hpf Hyaline Casts (0-2) /lpf Urine Mucus (None) /hpf 12/27/23 Range/Units 04:45 WBC (3.8-10.6) k/uL RBC (3.80-5.40) m/uL Hgb (11.4-16.0) gm/dL Hct (34.0-46.0) % MCV (80.0-100.0) fL MCH (25.0-35.0) pg MCHC (31.0-37.0) g/dL RDW (11.5-15.5) % Plt Count (150-450) k/uL MPV Neutrophils % % Lymphocytes % % Monocytes % % Eosinophils % % Basophils % % Neutrophils # (1.3-7.7) k/uL Lymphocytes # (1.0-4.8) k/uL Monocytes # (0-1.0) k/uL Eosinophils # (0-0.7) k/uL Basophils # (0-0.2) k/uL Sodium (137-145) mmol/L Potassium (3.5-5.1) mmol/L Chloride (98-107) mmol/L Carbon Dioxide (22-30) mmol/L Anion Gap mmol/L BUN (7-17) mg/dL Creatinine (0.52-1.04) mg/dL Est GFR (CKD-EPI)AfAm (>60 ml/min/1.73 sqM) Est GFR (CKD-EPI)NonAf (>60 ml/min/1.73 sqM) Glucose (74-99) mg/dL Plasma Lactic Acid Ric (0.7-2.0) mmol/L Calcium (8.4-10.2) mg/dL Total Bilirubin (0.2-1.3) mg/dL AST (14-36) U/L ALT (4-34) U/L Alkaline Phosphatase (38-126) U/L Total Protein (6.3-8.2) g/dL Albumin (3.5-5.0) g/dL Amylase (30-110) U/L Lipase (23-300) U/L Urine Color Colorless Urine Appearance Clear (Clear) Urine pH 6.5 (5.0-8.0) Ur Specific [place] 1.018 (1.001-1.035) Urine Protein Negative (Negative) Urine Glucose (UA) Negative (Negative) Urine Ketones Negative (Negative) Urine Blood Small H (Negative) Urine Nitrite Negative (Negative) Urine Bilirubin Negative (Negative) Urine Urobilinogen <2.0 (<2.0) mg/dL Ur Leukocyte Esterase Trace H (Negative) Urine RBC 8 H (0-5) /hpf Urine WBC 7 H (0-5) /hpf Ur Squamous Epith Cells <1 (0-4) /hpf Urine Bacteria Rare H (None) /hpf Hyaline Casts 1 (0-2) /lpf Urine Mucus Rare H (None) /hpf Disposition Is patient prescribed a controlled substance at d/c from ED?: No Time of Disposition: 05:43 <Martinez Mustafa - Last Filed: 12/27/23 05:43> <Rosa Vanessa - Last Filed: 12/28/23 04:35> Clinical Impression: Abdominal pain Disposition: HOME SELF-CARE Condition: Fair Instructions (If sedation given, give patient instructions): Abdominal Pain (ED) Prescriptions: Cephalexin [Keflex] 500 mg PO Q12HR 10 Days #20 cap Referrals: Daniel Moreno DO [Primary Care Provider] - 1-2 days
[2023-12-27 05:40] LABS: Appearance,Urine Clear (Clear); Bacteria,Urine Rare /hpf; Bilirubin,Urine Negative (Negative); Blood,Urine Small (Negative); Color,Urine Colorless; Glucose,Urine (UA) Negative (Negative); Hyaline Casts,Urine 1 /lpf (0-2); Ketones,Urine Negative (Negative); Leukocyte Esterase,Urine Trace (Negative); Mucus,Urine Rare /hpf; Nitrite,Urine Negative (Negative); PH, Urine 6.5 (5.0-8.0); Protein,Urine Negative (Negative); RBC,Urine 8 /hpf (0-5); Specific Gravity,Urine 1.018 (1.001-1.035); Squamous Epithelial Cell,Urine <1 /hpf (0-4); Urobilinogen,Urine <2.0 mg/dL (<2.0); WBC,Urine 7 /hpf (0-5)
[2023-12-27 06:34] VITALS: BP 153/95; PULSE 78; RESP 20; TEMP 98.7
== END 2023-12-27 06:33 | disposition home or self-care (01) ==
LOC: EC 01:04
DX: R10.9 Unspecified abdominal pain (principal); Z88.6 Allergy status to analgesic agent; Z88.8 Allergy status to other drugs, medicaments and biological substances
CPT/HCPCS: 36415; 80053; 82150; 83605; 83690; 85025; 81001; 99284; 96374; 96375; 96361; J2405; J2270

== ENCOUNTER 2023-12-27 16:49 | Emergency (ER) | payer OTHER ==
[2023-12-27 17:54] VITALS: BP 148/99; PULSE 79; RESP 20; TEMP 97.9
== END 2023-12-27 19:39 | disposition left against medical advice (07) ==
LOC: EC 16:49
DX: Z53.29 Procedure and treatment not carried out because of patient's decision for other reasons (principal)
CPT/HCPCS: 93005; 99499

== ENCOUNTER 2023-12-27 22:58 | Inpatient (IN) | payer OTHER ==
[2023-12-27] MEDS: SODIUM CHLORIDE 0.9% 1,000 ML IV ONE (23:50)
[2023-12-28 00:27] LABS: Basophils % (A) 0 %; Eosinophils % (A) 0 %; HCT 42.5 % (34.0-46.0); HGB 13.3 gm/dL (11.4-16.0); Lymphocytes # (A) 1.1 k/uL (1.0-4.8); Lymphocytes % (A) 10 %; MCH 28.9 pg (25.0-35.0); MCHC 31.2 g/dL (31.0-37.0); MCV 92.6 fL (80.0-100.0); Mean Platelet Volume 8.5; Monocytes # (A) 0.4 k/uL (0-1.0); Monocytes % (A) 4 %; Neutrophils # (A) 9.2 k/uL (1.3-7.7); Neutrophils % (A) 85 %; Platelet Count 217 k/uL (150-450); RBC 4.59 m/uL (3.80-5.40); RDW 13.5 % (11.5-15.5); WBC 10.9 k/uL (3.8-10.6)
[2023-12-28 00:40] LABS: ALT 26 U/L (4-34); AST 38 U/L (14-36); African American GFR (CKD) >90 (>60 ml/min/1.73 sqM); Alkaline Phosphatase 94 U/L (38-126); Amylase <30 U/L (30-110); Anion Gap 8 mmol/L; Blood Urea Nitrogen 15 mg/dL (7-17); Calcium 10.9 mg/dL (8.4-10.2); Carbon Dioxide 20 mmol/L (22-30); Chloride 109 mmol/L (98-107); Glucose 161 mg/dL (74-99); Lipase 33 U/L (23-300); Non-African American GFR(CKD) >90 (>60 ml/min/1.73 sqM); Potassium 4.2 mmol/L (3.5-5.1); Sodium 137 mmol/L (137-145); Total Bilirubin 1.4 mg/dL (0.2-1.3); Total Protein 7.1 g/dL (6.3-8.2)
--- NOTE | 2023-12-28 01:08 | ED ---
General Adult HPI - General Chief complaint: Abdominal Pain Stated complaint: ABD Pain Time Seen by Provider: 12/27/23 23:05 Source: patient, family, EMS, RN notes reviewed, old records reviewed Mode of arrival: EMS Limitations: no limitations - History of Present Illness Initial comments: 53-year-old female presenting for evaluation of abdominal pain. Patient was seen within the last 24 hours with suprapubic abdominal pain and diagnosis of UTI. Her pain continued to worsen and she had several episodes of vomiting. She was instructed to return to the emergency department if her symptoms worsened and she states that they have. No fever. No diarrhea. - Related Data Previous Rx's Medication Instructions Recorded Fluticasone Nasal [place] [Flonase 1 spray EA NOSTRIL DAILY #1 bottle 04/24/16 Nasal [place]] Loratadine-Pseudoeph 5-120 mg 1 each PO Q12HR #30 tab 04/24/16 [Claritin-D 12 HR] Erythromycin Ophth Oint [Romycin 1 applic RIGHT EYE QID 7 Days gm 01/04/17 Ophth Oint] Ibuprofen [Motrin] 600 mg PO Q8HR PRN #30 tab 01/06/17 Tobramycin [Tobrex 0.3% Ophth Soln] 1 drop RIGHT EYE Q4HR #5 ml 01/06/17 Benzonatate [Tessalon Perles] 100 mg PO TID #15 cap 04/13/17 Mupirocin Calcium 2% Cream 1 applic TOPICAL BID #1 tube 07/14/17 [Bactroban 2% Cream] Sulfamethox-Tmp 800-160Mg [Bactrim 2 tab PO Q12HR #40 tab 07/14/17 DS 800-160 mg] Amoxicillin 10 ml PO BID #200 ml 07/08/19 Amoxicillin/Potassium Clav 1 tab PO Q12HR #20 tab 02/27/20 [Augmentin 875-125 Tablet] dexAMETHasone [Decadron] 6 mg PO DAILY #5 tablet 10/31/21 Cephalexin [Keflex] 500 mg PO Q12HR 10 Days #20 cap 12/27/23 Allergies Allergy/AdvReac Type Severity Reaction Status Date / Time acetaminophen Allergy Dyspnea Verified 12/27/23 01:08 [From Darvocet-N] meperidine HCl [From Demerol] Allergy Anaphylaxis Verified 12/27/23 01:08 propoxyphene Allergy Dyspnea Verified 12/27/23 01:08 [From Darvocet-N] propoxyphene napsylate Allergy Anaphylaxis Verified 12/27/23 01:08 [From Darvocet-N 100] ketorolac AdvReac Chest Pain Verified 12/27/23 01:08 Review of Systems ROS Statement: Those systems with pertinent positive or pertinent negative responses have been documented in the HPI. ROS Other: All systems not noted in ROS Statement are negative. Past Medical History Past Medical History: No Reported History Additional Past Medical History / Comment(s): head injury History of Any Multi-Drug Resistant Organisms: MRSA Date of last positivie culture/infection: 07/14/17 MDRO Source:: abdomen Past Surgical History: Section, Cholecystectomy, Hysterectomy Past Psychological History: No Psychological Hx Reported Smoking Status: Never smoker Past Alcohol Use History: None Reported Past Drug Use History: None Reported General Exam General appearance: alert, in no apparent distress Head exam: Present: atraumatic, normocephalic Eye exam: Present: normal appearance, PERRL ENT exam: Present: normal exam Neck exam: Present: normal inspection. Absent: tenderness, meningismus Respiratory exam: Present: normal lung sounds bilaterally. Absent: respiratory distress, wheezes Cardiovascular Exam: Present: normal rhythm, bradycardia GI/Abdominal exam: Present: distended, tenderness (RLQ) Extremities exam: Present: normal inspection, normal capillary refill Neurological exam: Present: alert, oriented X3 Psychiatric exam: Present: normal affect, normal mood Skin exam: Present: warm, dry, intact. Absent: cyanosis, diaphoretic Course Vital Signs 12/27/23 12/28/23 12/28/23 23:10 01:56 03:04 Temperature 98.8 F Pulse Rate 58 L 52 L 51 L Respiratory 18 16 16 Rate Blood Pressure 153/88 163/73 153/80 O2 Sat by Pulse 95 94 L 96 Oximetry Medical Decision Making - Medical Decision Making Was pt. sent in by a medical professional or institution (, PA, [employer], urgent care, hospital, or jail...) When possible be specific @ -No Did you speak to anyone other than the patient for history (EMS, parent, family, police, friend...)? What history was obtained from this source @ -No Did you review nursing and triage notes (agree or disagree)? Why? @ -I reviewed and agree with nursing and triage notes Were old charts reviewed (outside hosp., previous admission, EMS record, old EKG, old radiological studies, urgent care reports/EKG's, jail records)? Report findings @ -No old charts were reviewed Differential Abdominal Pain Women: Appendicitis, Cholecystitis, diverticulosis, ischemic bowel, pancreatitis, hepatitis, UTI, gastroenteritis, AAA, incarcerated hernia, bowel obstruction, constipation, inflammatory bowel, hepatitis, peptic ulcer disease, splenic infarction, perforated viscus, vulvitis, ovarian torsion, PID, kidney stone, placenta abruption, this is not meant to be an all-inclusive list EKG interpreted by me (3pts min.). @Sinus bradycardia rate of 51, NC interval 153, QRS duration 111, QTc [address] segment elevation. X-rays interpreted by me (1pt min.). @ -None done CT interpreted by me (1pt min.). @CT shows large renal stone in the UPJ with obstruction U/S interpreted by me (1pt. min.). @ -None done What testing was considered but not performed or refused? (CT, X-rays, U/S, labs)? Why? @ -None What meds were considered but not given or refused? Why? @ -None Did you discuss the management of the patient with other professionals (professionals i.e. , PA, [employer], lab, RT, psych nurse, health care social worker, router operator radial, teacher, ship's officer, major case detective)? Give summary @ -Discussed with Dr. Montejo who will admit and with Dr. Siddiqui covering for urology Was smoking cessation discussed for >3mins.? @ -No Was critical care preformed (if so, how long)? @ -No Were there social determinants of health that impacted care today? How? (Homelessness, low income, unemployed, alcoholism, drug addiction, transportatio n, low edu. Level, literacy, decrease access to med. care, snf, rehab)? @ -No Was there de-escalation of care discussed even if they declined (Discuss DNR or withdrawal of care, Hospice)? DNR status @ -No What co-morbidities impacted this encounter? (DM, HTN, Smoking, COPD, CAD, Cancer, CVA, ARF, Chemo, Hep., AIDS, mental health diagnosis, sleep apnea, morbid obesity)? @ -None Was patient admitted / discharged? Hospital course, mention meds given and route, prescriptions, significant lab abnormalities, going to OR and other pertinent info. @ -[Patient admitted with obstructing renal calculus, UTI, persistent and intractable pain. Undiagnosed new problem with uncertain prognosis? @ -No Drug Therapy requiring intensive monitoring for toxicity (Heparin, Nitro, Insulin, Cardizem)? @ -No Were any procedures done? @ -No Diagnosis/symptom? @ -[Obstructing renal calculus, UTI Acute, or Chronic, or Acute on Chronic? @ -Acute Uncomplicated (without systemic symptoms) or Complicated (systemic symptoms)? @ -[default Side effects of treatment? @ -No Exacerbation, Progression, or Severe Exacerbation? @ -No Poses a threat to life or bodily function? How? (Chest pain, [place], [place], pneumonia, PE, COPD, DKA, ARF, appy, cholecystitis, CVA, Diverticulitis, Homicidal, Suicidal, threat to staff... and all critical care pts) @ -Yes, risk of sepsis - Lab Data Result diagrams: 12/27/23 00:10 12/27/23 00:10 Lab Results 12/27/23 12/27/23 12/27/23 Range/Units 00:10 00:10 00:10 WBC 10.9 H (3.8-10.6) k/uL RBC 4.59 (3.80-5.40) m/uL Hgb 13.3 (11.4-16.0) gm/dL Hct 42.5 (34.0-46.0) % MCV 92.6 (80.0-100.0) fL MCH 28.9 (25.0-35.0) pg MCHC 31.2 (31.0-37.0) g/dL RDW 13.5 (11.5-15.5) % Plt Count 217 (150-450) k/uL MPV 8.5 Neutrophils % 85 % Lymphocytes % 10 % Monocytes % 4 % Eosinophils % 0 % Basophils % 0 % Neutrophils # 9.2 H (1.3-7.7) k/uL Lymphocytes # 1.1 (1.0-4.8) k/uL Monocytes # 0.4 (0-1.0) k/uL Eosinophils # 0.0 (0-0.7) k/uL Basophils # 0.0 (0-0.2) k/uL Sodium 137 (137-145) mmol/L Potassium 4.2 (3.5-5.1) mmol/L Chloride 109 H (98-107) mmol/L Carbon Dioxide 20 L (22-30) mmol/L Anion Gap 8 mmol/L BUN 15 (7-17) mg/dL Creatinine 0.75 (0.52-1.04) mg/dL Est GFR (CKD-EPI)AfAm >90 (>60 ml/min/1.73 sqM) Est GFR (CKD-EPI)NonAf >90 (>60 ml/min/1.73 sqM) Glucose 161 H (74-99) mg/dL Plasma Lactic Acid Ric 1.0 (0.7-2.0) mmol/L Calcium 10.9 H (8.4-10.2) mg/dL Total Bilirubin 1.4 H (0.2-1.3) mg/dL AST 38 H (14-36) U/L ALT 26 (4-34) U/L Alkaline Phosphatase 94 (38-126) U/L Total Protein 7.1 (6.3-8.2) g/dL Albumin 4.0 (3.5-5.0) g/dL Amylase <30 L (30-110) U/L Lipase 33 (23-300) U/L Urine Color Urine Appearance (Clear) Urine pH (5.0-8.0) Ur Specific [place] (1.001-1.035) Urine Protein (Negative) Urine Glucose (UA) (Negative) Urine Ketones (Negative) Urine Blood (Negative) Urine Nitrite (Negative) Urine Bilirubin (Negative) Urine Urobilinogen (<2.0) mg/dL Ur Leukocyte Esterase (Negative) Urine RBC (0-5) /hpf Urine WBC (0-5) /hpf Ur Squamous Epith Cells (0-4) /hpf Urine Bacteria (None) /hpf Urine Mucus (None) /hpf 12/28/23 Range/Units 05:21 WBC (3.8-10.6) k/uL RBC (3.80-5.40) m/uL Hgb (11.4-16.0) gm/dL Hct (34.0-46.0) % MCV (80.0-100.0) fL MCH (25.0-35.0) pg MCHC (31.0-37.0) g/dL RDW (11.5-15.5) % Plt Count (150-450) k/uL MPV Neutrophils % % Lymphocytes % % Monocytes % % Eosinophils % % Basophils % % Neutrophils # (1.3-7.7) k/uL Lymphocytes # (1.0-4.8) k/uL Monocytes # (0-1.0) k/uL Eosinophils # (0-0.7) k/uL Basophils # (0-0.2) k/uL Sodium (137-145) mmol/L Potassium (3.5-5.1) mmol/L Chloride (98-107) mmol/L Carbon Dioxide (22-30) mmol/L Anion Gap mmol/L BUN (7-17) mg/dL Creatinine (0.52-1.04) mg/dL Est GFR (CKD-EPI)AfAm (>60 ml/min/1.73 sqM) Est GFR (CKD-EPI)NonAf (>60 ml/min/1.73 sqM) Glucose (74-99) mg/dL Plasma Lactic Acid Ric (0.7-2.0) mmol/L Calcium (8.4-10.2) mg/dL Total Bilirubin (0.2-1.3) mg/dL AST (14-36) U/L ALT (4-34) U/L Alkaline Phosphatase (38-126) U/L Total Protein (6.3-8.2) g/dL Albumin (3.5-5.0) g/dL Amylase (30-110) U/L Lipase (23-300) U/L Urine Color Colorless Urine Appearance Clear (Clear) Urine pH 6.5 (5.0-8.0) Ur Specific [place] 1.032 (1.001-1.035) Urine Protein Negative (Negative) Urine Glucose (UA) 1+ H (Negative) Urine Ketones 2+ H (Negative) Urine Blood Trace H (Negative) Urine Nitrite Negative (Negative) Urine Bilirubin Negative (Negative) Urine Urobilinogen <2.0 (<2.0) mg/dL Ur Leukocyte Esterase Moderate H (Negative) Urine RBC 7 H (0-5) /hpf Urine WBC 22 H (0-5) /hpf Ur Squamous Epith Cells <1 (0-4) /hpf Urine Bacteria Rare H (None) /hpf Urine Mucus Rare H (None) /hpf Disposition Clinical Impression: Calculus of kidney, UTI (urinary tract infection) Disposition: ADMITTED IP TO THIS HOSP Condition: Stable Is patient prescribed a controlled substance at d/c from ED?: No Referrals: None,Stated [REFERRING] - 1-2 days Time of Disposition: 06:28
[2023-12-28] MEDS: MORPHINE SULFATE 4 MG/ML SYRINGE IVP STA ×2 (01:32→05:34)
[2023-12-28] MEDS: HYDROmorphone 0.5 MG/0.5 ML SYRINGE IVP STA (03:21)
--- NOTE | 2023-12-28 03:45 | CT ---
EXAM: CT Abdomen and Pelvis With Intravenous Contrast CLINICAL HISTORY: abdominal pain TECHNIQUE: Axial computed tomography images of the abdomen and pelvis with intravenous contrast. CTDI is 45.2 mGy and DLP is 2292.4 mGy-cm. This CT exam was performed using one or more of the following dose reduction techniques: automated exposure control, adjustment of the mA and/or kV according to patient size, and/or use of iterative reconstruction technique. COMPARISON: No relevant prior studies available. FINDINGS: ABDOMEN: Liver: Fatty infiltration of the liver. Gallbladder and bile ducts: Cholecystectomy. No ductal dilation. Pancreas: Unremarkable. No mass. No ductal dilation. Spleen: Unremarkable. No splenomegaly. Adrenals: Unremarkable. No mass. Kidneys and ureters: Moderate to severe right hydronephrosis. There is a 12 x 13 x 9 mm obstructing right UPJ calculus. Tiny nonobstructing calculus in lower pole of right kidney. Small nonobstructing calculi in the left kidney. Stomach and bowel: Unremarkable. No obstruction. No mucosal thickening. PELVIS: Appendix: No findings to suggest acute appendicitis. Bladder: Unremarkable. No mass. ABDOMEN and PELVIS: Intraperitoneal space: Unremarkable. No free air. No significant fluid collection. Bones/joints: No acute findings. Soft tissues: Unremarkable. Vasculature: Unremarkable. No abdominal aortic aneurysm. Lymph nodes: Unremarkable. No enlarged lymph nodes. IMPRESSION: Moderate to severe right hydronephrosis. There is a 12 x 13 x 9 mm obstructing right UPJ calculus.
[2023-12-28] MEDS: cefTRIAXone IN SWFI 1,000 MG/10 ML SYRINGE IVP STA (04:10)
[2023-12-28 05:29] LABS: Appearance,Urine Clear (Clear); Bacteria,Urine Rare /hpf; Bilirubin,Urine Negative (Negative); Blood,Urine Trace (Negative); Color,Urine Colorless; Glucose,Urine (UA) 1+ (Negative); Leukocyte Esterase,Urine Moderate (Negative); Mucus,Urine Rare /hpf; Nitrite,Urine Negative (Negative); PH, Urine 6.5 (5.0-8.0); Protein,Urine Negative (Negative); RBC,Urine 7 /hpf (0-5); Specific Gravity,Urine 1.032 (1.001-1.035); Squamous Epithelial Cell,Urine <1 /hpf (0-4); Urobilinogen,Urine <2.0 mg/dL (<2.0); WBC,Urine 22 /hpf (0-5)
[2023-12-28] MEDS: SODIUM CHLORIDE 0.9% 1,000 ML IV SCH (05:34)
[2023-12-28 06:00] LABS: Ketones,Urine 2+ (Negative)
[2023-12-28] MEDS ORDERED: NALOXONE 0.4 MG/ML 1 ML VIAL IV PRN (06:25)
--- NOTE | 2023-12-28 08:09 | P.GSCN ---
History of Present Illness Consult date: 12/28/23 History of present illness: 53 yo female with a recent history of abdominal pain. She was initially in the er 12/26 and treated for a uti. She returned 24 hours later and found to have a 1 cm right upj stone. She is admitted for pain control, antibiotics and urological consultation. She states that she was told she had a stone a couple months ago but presumed she passed it. there have been no fever or chills. She was placed on ab 12/26. Review of Systems All systems: negative - Constitutional Denies fever, Denies weight loss - EENT Eyes: denies blurred vision Ears, nose, mouth and throat: Denies dysphagia - Cardiovascular Denies chest pain, Denies shortness of breath - Respiratory Denies cough, Denies 7 - Gastrointestinal Reports as per HPI - Genitourinary Genitourinary: Denies dysuria, Denies hematuria - Integumentary Denies rash, Denies unusual bruising - Neurological Denies headaches, Denies syncope - Hematologic/Lymphatic Denies easy bleeding, Denies easy bruising Past Medical History Past Medical History: No Reported History Additional Past Medical History / Comment(s): head injury History of Any Multi-Drug Resistant Organisms: MRSA Year Discovered:: 07/14/17 MDRO Source:: abdomen Past Surgical History: Section, Cholecystectomy, Hysterectomy Past Psychological History: No Psychological Hx Reported Smoking Status: Never smoker Past Alcohol Use History: None Reported Past Drug Use History: None Reported Medications and Allergies Home Medications Medication Instructions Recorded Confirmed Type Cephalexin [Keflex] 500 mg PO Q12HR 10 Days #20 cap 12/27/23 12/28/23 Rx Allergies Allergy/AdvReac Type Severity Reaction Status Date / Time meperidine HCl [From Demerol] Allergy Anaphylaxis Verified 12/28/23 07:26 propoxyphene Allergy Dyspnea Verified 12/28/23 07:26 [From Darvocet-N] propoxyphene napsylate Allergy Anaphylaxis Verified 12/28/23 07:26 [From Darvocet-N 100] ketorolac AdvReac Chest Pain Verified 12/28/23 07:26 Surgical - Exam Vital Signs Temp Pulse Resp BP Pulse Ox 98.8 F 58 L 18 153/88 95 12/27/23 23:10 12/27/23 23:10 12/27/23 23:10 12/27/23 23:10 12/27/23 23:10 - General well developed, well nourished, no distress - Eyes normal ocular movement, no icteric - ENT no hearing loss, no congestion - Neck no masses, trachea midline - Respiratory normal respiratory effort, clear to auscultation - Abdomen Abdomen: soft, non tender, no guarding, no rigid, no rebound - Integumentary no rash, no abnormal pigmentation - Neurologic no disoriented, no combative - Psychiatric oriented to time, oriented to person, oriented to place, speech is normal, memory intact Results - Labs 12/27/23 00:10 12/27/23 00:10 Abnormal Lab Results - Last 24 Hours (Table) 12/27/23 12/27/23 12/28/23 Range/Units 00:10 00:10 05:21 WBC 10.9 H (3.8-10.6) k/uL Neutrophils # 9.2 H (1.3-7.7) k/uL Chloride 109 H (98-107) mmol/L Carbon Dioxide 20 L (22-30) mmol/L Glucose 161 H (74-99) mg/dL Calcium 10.9 H (8.4-10.2) mg/dL Total Bilirubin 1.4 H (0.2-1.3) mg/dL AST 38 H (14-36) U/L Amylase <30 L (30-110) U/L Urine Glucose (UA) 1+ H (Negative) Urine Ketones 2+ H (Negative) Urine Blood Trace H (Negative) Ur Leukocyte Esterase Moderate H (Negative) Urine RBC 7 H (0-5) /hpf Urine WBC 22 H (0-5) /hpf Urine Bacteria Rare H (None) /hpf Urine Mucus Rare H (None) /hpf Diabetes panel 12/27/23 Range/Units 00:10 Sodium 137 (137-145) mmol/L Potassium 4.2 (3.5-5.1) mmol/L Chloride 109 H (98-107) mmol/L Carbon Dioxide 20 L (22-30) mmol/L BUN 15 (7-17) mg/dL Creatinine 0.75 (0.52-1.04) mg/dL Glucose 161 H (74-99) mg/dL Calcium 10.9 H (8.4-10.2) mg/dL AST 38 H (14-36) U/L ALT 26 (4-34) U/L Alkaline Phosphatase 94 (38-126) U/L Total Protein 7.1 (6.3-8.2) g/dL Albumin 4.0 (3.5-5.0) g/dL Calcium panel 12/27/23 Range/Units 00:10 Calcium 10.9 H (8.4-10.2) mg/dL Albumin 4.0 (3.5-5.0) g/dL Pituitary panel 12/27/23 Range/Units 00:10 Sodium 137 (137-145) mmol/L Potassium 4.2 (3.5-5.1) mmol/L Chloride 109 H (98-107) mmol/L Carbon Dioxide 20 L (22-30) mmol/L BUN 15 (7-17) mg/dL Creatinine 0.75 (0.52-1.04) mg/dL Glucose 161 H (74-99) mg/dL Calcium 10.9 H (8.4-10.2) mg/dL Adrenal panel 12/27/23 Range/Units 00:10 Sodium 137 (137-145) mmol/L Potassium 4.2 (3.5-5.1) mmol/L Chloride 109 H (98-107) mmol/L Carbon Dioxide 20 L (22-30) mmol/L BUN 15 (7-17) mg/dL Creatinine 0.75 (0.52-1.04) mg/dL Glucose 161 H (74-99) mg/dL Calcium 10.9 H (8.4-10.2) mg/dL Total Bilirubin 1.4 H (0.2-1.3) mg/dL AST 38 H (14-36) U/L ALT 26 (4-34) U/L Alkaline Phosphatase 94 (38-126) U/L Total Protein 7.1 (6.3-8.2) g/dL Albumin 4.0 (3.5-5.0) g/dL - Imaging CT scan - abdomen: report reviewed, image reviewed CT scan - pelvis: report reviewed, image reviewed Assessment and Plan Assessment: Impression: right ureteral stone with obstruction and colic. Possible uti Plan: the patient is admitted for pain control and ab. The urine probably on the wasnt infected however I do agree with the ab for now. We will see how she does over the next 24 hours.
[2023-12-28] MEDS: MORPHINE SULFATE 4 MG/ML SYRINGE IV PRN (12:46)
[2023-12-28] MEDS: ONDANSETRON 4 MG/2 ML VIAL IVP PRN (15:45)
--- NOTE | 2023-12-28 17:36 | P.HPIM ---
History of Present Illness H&P Date: 12/28/23 Chief Complaint: Right sided abdominal pain History of present illness; Kelly Cabrera 53-year-old female presents with right-sided abdominal pain. Patient presents with 2-day history of progressive right-sided abdominal pain which began at right loin and has since radiated to right groin area. Her pain began dull in nature and has since become sharp and stabbing. During this time she has associated nausea and vomiting. Also during this time, patient reports gradually difficulty with urination and decreasing urine output. Patient denies blood in urine or other urinary symptoms. She has no previous history of similar occurrences. She was initially seen in the emergency room 2 days ago and sent home with Keflex, and returned back to the hospital after her symptoms continued to worsen. She denies fever chills and urinary frequency. She has no other complaints at this time. Initial lab work done in the ER showed WBC 10.9, neutrophils 9.2, increased glucose, calcium 10.9, bilirubin 1.4, urinary analysis with ketones, LE positive, RBC, WBC. EKG done in the ER showed heart rate of 54, no ST segment elevation or depression seen, no T-wave inversions seen. CT/AP -severe right-sided hydronephrosis, 12 X13 X 9 mm obstruction right UPJ calculus. Also small stone in the right pole. Small stone in left kidney. Patient admitted to internal medicine service REVIEW OF SYSTEMS: CONSTITUTIONAL: No fever, no malaise, no fatigue. HEENT: No recent visual problems or hearing problems. Denied any sore throat. CARDIOVASCULAR: No chest pain, orthopnea, PND, no palpitations, no syncope. PULMONARY: No shortness of breath, no cough, no hemoptysis. GASTROINTESTINAL: as per HPI NEUROLOGICAL: No headaches, no weakness, no numbness. HEMATOLOGICAL: Denies any bleeding or petechiae. GENITOURINARY: As per HPI MUSCULOSKELETAL/RHEUMATOLOGICAL: Denies any joint pain, swelling, or any muscle pain. ENDOCRINE: Denies any polyuria or polydipsia. The rest of the 14-point review of systems is negative. PHYSICAL EXAMINATION: GENERAL: The patient is alert and oriented x3, mild distress. Well developed, well nourished. HEENT: Pupils are round and equally reacting to light. EOMI. No scleral icterus. No conjunctival pallor. Normocephalic, atraumatic. No pharyngeal erythema. No thyromegaly. CARDIOVASCULAR: S1 and S2 present. No murmurs, rubs, or gallops. PULMONARY: Chest is clear to auscultation, no wheezing or crackles. ABDOMEN: Soft, tenderness on right side, nondistended, normoactive bowel sounds. No palpable organomegaly. MUSCULOSKELETAL: No joint swelling or deformity. EXTREMITIES: No cyanosis, clubbing, or pedal edema. NEUROLOGICAL: Gross neurological examination did not reveal any focal deficits. SKIN: No rashes. Assessment and plan #Nephrolithiasis likely due to hypercalcemia - serum Ca 10.9 - CT AP - severe right-sided hydronephrosis, 12 X13 X 9 mm obstruction right UPJ calculus - start zofran - start IV fluids - start pain control - start abx - order PTH - daily CBC and CMP - surgery following - Counseled patient low-sodium diet and meat, low oxalate foods and low sucrose/fructose #UTI likely secondary to nephrolithiasis - urinary analysis with ketones, LE positive, RBC, and WBC. - begin abx as above #Hyperglycemia - order Hba1c - begin regular BM monitoring - begin sliding scale insulin Monitor vital signs Labs and medication were reviewed.. Continue same treatment. Continue with symptomatic treatment. Resume home medication. Monitor labs and vitals. DVT and GI prophylaxis. Further recommendations as per clinical course of the patient Dictation was produced using [employer] dictation software. please excuse any g rammatical, word or spelling errors. Past Medical History Past Medical History: No Reported History Additional Past Medical History / Comment(s): head injury History of Any Multi-Drug Resistant Organisms: MRSA Date of last positivie culture/infection: 07/14/17 MDRO Source:: abdomen Past Surgical History: Section, Cholecystectomy, Hysterectomy Past Psychological History: No Psychological Hx Reported Smoking Status: Never smoker Past Alcohol Use History: None Reported Past Drug Use History: None Reported Medications and Allergies Home Medications Medication Instructions Recorded Confirmed Type Cephalexin [Keflex] 500 mg PO Q12HR 10 Days #20 cap 12/27/23 12/28/23 Rx Allergies Allergy/AdvReac Type Severity Reaction Status Date / Time meperidine HCl [From Demerol] Allergy Anaphylaxis Verified 12/28/23 07:26 propoxyphene Allergy Dyspnea Verified 12/28/23 07:26 [From Darvocet-N] propoxyphene napsylate Allergy Anaphylaxis Verified 12/28/23 07:26 [From Darvocet-N 100] ketorolac AdvReac Chest Pain Verified 12/28/23 07:26 Physical Exam Vitals: Vital Signs Temp Pulse Pulse Resp BP BP Pulse Ox 12/28/23 14:45 97.4 F L 62 15 123/82 94 L 12/28/23 08:00 16 12/28/23 07:32 58 L 16 135/72 95 12/28/23 07:00 97.5 F L 46 L 13 141/75 96 12/28/23 06:00 52 L 16 142/72 94 L 12/28/23 03:04 51 L 16 153/80 96 12/28/23 01:56 52 L 16 163/73 94 L 12/27/23 23:10 98.8 F 58 L 18 153/88 95 Intake and Output 12/28/23 12/28/23 12/28/23 06:59 14:59 22:59 Other: Voiding Method Toilet # Voids 1 Weight 108.862 kg 108.862 kg Results CBC & Chem 7: 12/27/23 00:10 12/27/23 00:10 Labs: Abnormal Lab Results - Last 24 Hours (Table) 12/27/23 12/27/23 12/28/23 Range/Units 00:10 00:10 05:21 WBC 10.9 H (3.8-10.6) k/uL Neutrophils # 9.2 H (1.3-7.7) k/uL Chloride 109 H (98-107) mmol/L Carbon Dioxide 20 L (22-30) mmol/L Glucose 161 H (74-99) mg/dL Calcium 10.9 H (8.4-10.2) mg/dL Total Bilirubin 1.4 H (0.2-1.3) mg/dL AST 38 H (14-36) U/L Amylase <30 L (30-110) U/L Urine Glucose (UA) 1+ H (Negative) Urine Ketones 2+ H (Negative) Urine Blood Trace H (Negative) Ur Leukocyte Esterase Moderate H (Negative) Urine RBC 7 H (0-5) /hpf Urine WBC 22 H (0-5) /hpf Urine Bacteria Rare H (None) /hpf Urine Mucus Rare H (None) /hpf Thrombosis Risk Factor Assmnt - Choose All That Apply Each Factor Represents 1 point: Age 41-60 years, Obesity (BMI >25) Thrombosis Risk Factor Assessment Total Risk Factor Score: 2 Thrombosis Risk Factor Assessment Level: Low Risk
[2023-12-28] MEDS ORDERED: DEXTROSE 50% SYRINGE 50 ML IVP PRN ×2 (17:51)
[2023-12-28 20:25] LABS: Glucose,Whole Blood 140 mg/dL (70-110)
[2023-12-28] MEDS: INSULIN ASPART (NovoLOG) 100 UNIT/ML VIAL SQ SCH (20:28)
[2023-12-29 00:29] LABS: Glucose,Whole Blood 145 mg/dL (70-110)
[2023-12-29 04:04] LABS: Glucose,Whole Blood 140 mg/dL (70-110)
[2023-12-29 08:02] LABS: Glucose,Whole Blood 137 mg/dL (70-110)
--- NOTE | 2023-12-29 08:47 | P.PN ---
Subjective Progress Note Date: 12/29/23 Continues to have right flank pain this morning. Remains afebrile Objective - Vital Signs Vital signs: Vital Signs Temp 98.3 F 12/29/23 07:00 Pulse 63 12/29/23 07:00 Resp 18 12/29/23 07:00 BP 154/91 12/29/23 07:00 Pulse Ox 95 12/29/23 07:00 FiO2 Intake & Output 12/28/23 12/29/23 12/29/23 18:59 06:59 18:59 Intake Total 0 Balance 0 Weight 108.862 kg Intake: Oral 0 Other: Voiding Method Toilet Toilet # Voids 1 3 - Constitutional General appearance: Present: no acute distress - Gastrointestinal General gastrointestinal: Present: soft, tenderness. Absent: distended - Psychiatric Psychiatric: Present: A&O x's 3 - Labs CBC & Chem 7: 12/27/23 00:10 12/27/23 00:10 Labs: Abnormal Lab Results - Last 24 Hours (Table) 12/28/23 12/29/23 12/29/23 Range/Units 20:24 00:27 04:02 POC Glucose (mg/dL) 140 H 145 H 140 H (70-110) mg/dL 12/29/23 Range/Units 08:00 POC Glucose (mg/dL) 137 H (70-110) mg/dL Assessment and Plan Assessment: 53-year-old female with history of a 1 cm right-sided proximal ureteral stone, continues to have intractable pain requiring IV pain medications. Discussed with her the option of right-sided ureteroscopy with holmium laser. Aware the risk which includes but not limited to bleeding, infection, injury to the ureter. -Keep n.p.o. -OR for right-sided ureteroscopy, homing laser lithotripsy, stone basketing and stent insertion
--- NOTE | 2023-12-29 10:32 | P.PN ---
Subjective Progress Note Date: 12/29/23 Principal diagnosis: Nephrolithiasis, UTI History of present illness; Kelly Cabrera 53-year-old female presents with right-sided abdominal pain. Patient presents with 2-day history of progressive right-sided abdominal pain which began at right loin and has since radiated to right groin area. Her pain began dull in nature and has since become sharp and stabbing. During this time she has associated nausea and vomiting. Also during this time, patient reports gradually difficulty with urination and decreasing urine output. Patient denies blood in urine or other urinary symptoms. She has no previous history of similar occurrences. She was initially seen in the emergency room 2 days ago and sent home with Keflex, and returned back to the hospital after her symptoms continued to worsen. She denies fever chills and urinary frequency. She has no other complaints at this time. Initial lab work done in the ER showed WBC 10.9, neutrophils 9.2, increased glucose, calcium 10.9, bilirubin 1.4, urinary analysis with ketones, LE positive, RBC, WBC. EKG done in the ER showed heart rate of 54, no ST segment elevation or depression seen, no T-wave inversions seen. CT/AP -severe right-sided hydronephrosis, 12 X13 X 9 mm obstruction right UPJ calculus. Also small stone in the right pole. Small stone in left kidney. 12-29-23 - Patient was examined at bedside, she reports increased urinary frequency, vomiting and moderate pain overnight that improved with medication. She has planned ureteroscopy with homing laser lithotripsy in afternoon. Patient is NPO REVIEW OF SYSTEMS: CONSTITUTIONAL: No fever, no malaise, no fatigue. CARDIOVASCULAR: No chest pain, orthopnea, PND, no palpitations, no syncope. PULMONARY: No shortness of breath, no cough, no hemoptysis. GASTROINTESTINAL: as per HPI GENITOURINARY: As per HPI PHYSICAL EXAMINATION: GENERAL: The patient is alert and oriented x3, mild distress. Well developed, well nourished. HEENT: Pupils are round and equally reacting to light. EOMI. No scleral icterus. No conjunctival pallor. Normocephalic, atraumatic. No pharyngeal erythema. No thyromegaly. CARDIOVASCULAR: S1 and S2 present. No murmurs, rubs, or gallops. PULMONARY: Chest is clear to auscultation, no wheezing or crackles. ABDOMEN: Soft, tenderness on right side, nondistended, normoactive bowel sounds. No palpable organomegaly. MUSCULOSKELETAL: No joint swelling or deformity. EXTREMITIES: No cyanosis, clubbing, or pedal edema. NEUROLOGICAL: Gross neurological examination did not reveal any focal deficits. SKIN: No rashes. Assessment and plan #Nephrolithiasis likely due to hypercalcemia - serum Ca 10.9 - CT AP - severe right-sided hydronephrosis, 12 X13 X 9 mm obstruction right UPJ calculus - continue zofran - continue IV fluids - continue pain control - continue abx - PTH 154 - suspecting primary hyperparathyroidism - follow up outpatient with endocrinology - daily CBC and CMP - surgery following - planned ureteroscopy with homing laser lithotripsy - Counseled patient low-sodium diet and meat, low oxalate foods and low sucrose/fructose #UTI likely secondary to nephrolithiasis - urinary analysis with ketones, LE positive, RBC, and WBC. - continue abx as above #Hyperglycemia - Hba1c 6.0 - glucose 142 - continue regular BM monitoring - continue sliding scale insulin Monitor vital signs Labs and medication were reviewed.. Continue same treatment. Continue with symptomatic treatment. Resume home medication. Monitor labs and vitals. DVT and GI prophylaxis. Further recommendations as per clinical course of the patient Dictation was produced using [employer] dictation software. please excuse any grammatical, word or spelling errors. Objective - Vital Signs Vital signs: Vital Signs Temp 98.3 F 12/29/23 07:00 Pulse 63 12/29/23 07:00 Resp 18 12/29/23 07:00 BP 154/91 12/29/23 07:00 Pulse Ox 95 12/29/23 07:00 FiO2 Intake & Output 12/28/23 12/29/23 12/29/23 18:59 06:59 18:59 Intake Total 0 Balance 0 Weight 108.862 kg Intake: Oral 0 Other: Voiding Method Toilet Toilet # Voids 1 3 - Labs CBC & Chem 7: 12/29/23 07:09 12/29/23 07:09 Labs: Abnormal Lab Results - Last 24 Hours (Table) 12/28/23 12/29/23 12/29/23 Range/Units 20:24 00:27 04:02 POC Glucose (mg/dL) 140 H 145 H 140 H (70-110) mg/dL 12/29/23 Range/Units 08:00 POC Glucose (mg/dL) 137 H (70-110) mg/dL
[2023-12-29 10:37] LABS: WBC 11.37 X 10*3/uL (4.50-10.00)
[2023-12-29 10:38] LABS: Basophils # (A) 0.03 X 10*3/uL (0.00-0.10); Basophils % (A) 0.3 %; Eosinophils # (A) 0 X 10*3/uL (0.04-0.35); Eosinophils % (A) 0 %; HCT 41.9 % (37.2-46.3); HGB 12.6 g/dL (12.0-15.0); Lymphocytes # (A) 1.55 X 10*3/uL (0.90-5.00); Lymphocytes % (A) 13.6 %; MCH 28.4 pg (27.0-32.0); MCHC 30.1 g/dL (32.0-37.0); MCV 94.6 FL (80.0-97.0); Mean Platelet Volume 10.6 FL (9.5-12.2); Monocytes # (A) 0.78 X 10*3/uL (0.20-1.00); Monocytes % (A) 6.9 %; NRBC Per 100 WBC 0 X 10*3/uL (0.00-0.01); Neutrophils # (A) 8.94 X 10*3/uL (1.80-7.70); Neutrophils % (A) 78.6 %; Platelet Count 185 X 10*3/uL (140-440); RBC 4.43 X 10*6/uL (4.10-5.20); RDW 13.7 % (11.5-14.5)
[2023-12-29 10:48] LABS: ALT 23 U/L (8-44); AST 23 U/L (13-35); Albumin 3.9 g/dL (3.8-4.9); Albumin/Globulin Ratio 1.44 Ratio (1.60-3.17); Alkaline Phosphatase 93 U/L (41-126); BUN/Creat Ratio 17.67 Ratio (12.00-20.00); Blood Urea Nitrogen 15.9 mg/dL (9.0-27.0); Calcium 10.2 mg/dL (8.7-10.3); Carbon Dioxide 23.3 mmol/L (21.6-31.8); Chloride 106 mmol/L (96-109); Globulin 2.7 g/dL (1.6-3.3); Glucose 144 mg/dL (70-110); Potassium 4.1 mmol/L (3.5-5.5); Sodium 139 mmol/L (135-145); Total Bilirubin 0.7 mg/dL (0.3-1.2); Total Protein 6.6 g/dL (6.2-8.2)
[2023-12-29 12:10] LABS: Glucose,Whole Blood 142 mg/dL (70-110)
[2023-12-29] MEDS: IV FLUID CONTINUATION 1,000 ML IV ONE ×2 (12:55→15:04)
[2023-12-29] MEDS: FAMOTIDINE 20 MG/2 ML VIAL IV STA (13:16)
[2023-12-29] MEDS: DEXAMETHASONE SOD PHOSPHATE 4 MG/ML 1 ML VIAL IVP STA (13:17)
[2023-12-29] MEDS ORDERED: LIDOCAINE 1% INJ 10MG/ML (20 ML MDV) ONE (13:53)
[2023-12-29] MEDS ORDERED: PROPOFOL 10 MG/ML 20 ML VIAL IV ONE (13:53)
[2023-12-29] MEDS ORDERED: GLYCOPYRROLATE 0.2 MG/ML 2 ML VIAL ONE (13:53)
[2023-12-29] MEDS ORDERED: SUCCINYLCHOLINE CHLORIDE 200 MG/10 ML VIAL IV ONE (13:53)
[2023-12-29] MEDS ORDERED: fentaNYL (PF) 50 MCG/ML 2 ML AMP ONE (13:53)
[2023-12-29] MEDS: SODIUM CHLORIDE 0.9% 50 ML with ceFAZolin 2,000 MG IV ONE (14:19)
--- NOTE | 2023-12-29 15:02 | P.OP ---
Date of Procedure: 12/29/23 Preoperative Diagnosis: Right ureteral stone Postoperative Diagnosis: Same Procedure(s) Performed: Cystoscopy, right ureteroscopy, holmium laser lithotripsy, stone basketing and stent insertion Implants: 6 Israeli by 26 cm stent in the right ureter Anesthesia: DALTON Surgeon: Honorio Cartwright Estimated Blood Loss (ml): 5 Pathology: other (Right ureteral stone) Condition: stable Disposition: PACU Indications for Procedure: 53-year-old female with history of a 1 cm right-sided proximal ureteral stone, continues to have intractable pain requiring IV pain medications. Discussed with her the option of right-sided ureteroscopy with holmium laser. Aware the risk which includes but not limited to bleeding, infection, injury to the ureter. Operative Findings: Right-sided proximal ureteral stone Description of Procedure: Patient brought to the operating room, general anesthesia was induced. She was prepped and draped in sterile fashion placed in dorsolithotomy position. Cystoscopy fitted with a 21 Israeli sheath was inserted per urethra, cystoscopy was performed showed no abnormality within the bladder. Attention was then carried to the right ureteral orifice which was intubated with a sensor wire, the wire was advanced under fluoroscopy into the right kidney, the stone could be visualized along the right proximal ureter, the stone was faintly radiopaque. At this point a 11 x 13 Israeli access sheath was passed over the wire under fluoroscopy just distal to the stone. Next a flexible ureteroscope was inserted through the access sheath, ureteroscopy was performed showed a stone in the p roximal ureter. The stone was fragmented using the holmium laser. Sizable stone basket was grasped using the stone basket. Repeat ureteroscopy and renoscopy showed no sizable fragments or injury to the kidney, on fluoroscopy there was no radiopaque densities. This time pullback ureteroscopy was performed showed no injury to the ureter or any ureteral stones, as ureteroscope was withdrawn a sensor wire was advanced through. Next a ureteral stent was passed over the wire, the proximal curl visualized on fluoroscopy and the distal curl was visualized using the cystoscope. The patient was awakened from anesthesia and taken to recovery in stable condition.
--- NOTE | 2023-12-29 15:34 | FL ---
Intraoperative/procedural fluoroscopic services were provided for right renal calculi with lithotrips y with right ureteral stent placement. Total fluoroscopy time is 33 seconds with a total of 5 submitt ed images to PACS. Total DAP [id number] Gycm2. Please see the operative note for further details.
[2023-12-29] MEDS: HEPARIN SODIUM,PORCINE 5,000 UNIT/ML 1 ML VIAL SQ SCH (16:22)
[2023-12-29 16:32] LABS: Glucose,Whole Blood 157 mg/dL (70-110)
[2023-12-29 20:41] LABS: Glucose,Whole Blood 161 mg/dL (70-110)
[2023-12-30 00:21] LABS: Glucose,Whole Blood 135 mg/dL (70-110)
[2023-12-30 06:19] LABS: Glucose,Whole Blood 129 mg/dL (70-110)
--- NOTE | 2023-12-30 07:20 | P.PN ---
Subjective Progress Note Date: 12/30/23 Principal diagnosis: Nephrolithiasis, UTI History of present illness; Kelly Cabrera 53-year-old female presents with right-sided abdominal pain. Patient presents with 2-day history of progressive right-sided abdominal pain which began at right loin and has since radiated to right groin area. Her pain began dull in nature and has since become sharp and stabbing. During this time she has associated nausea and vomiting. Also during this time, patient reports gradually difficulty with urination and decreasing urine output. Patient denies blood in urine or other urinary symptoms. She has no previous history of similar occurrences. She was initially seen in the emergency room 2 days ago and sent home with Keflex, and returned back to the hospital after her symptoms continued to worsen. She denies fever chills and urinary frequency. She has no other complaints at this time. Initial lab work done in the ER showed WBC 10.9, neutrophils 9.2, increased glucose, calcium 10.9, bilirubin 1.4, urinary analysis with ketones, LE positive, RBC, WBC. EKG done in the ER showed heart rate of 54, no ST segment elevation or depression seen, no T-wave inversions seen. CT/AP -severe right-sided hydronephrosis, 12 X13 X 9 mm obstruction right UPJ calculus. Also small stone in the right pole. Small stone in left kidney. 12-29-23 - Patient was examined at bedside, she reports increased urinary frequency, vomiting and moderate pain overnight that improved with medication. She has planned ureteroscopy with homing laser lithotripsy in afternoon. Patient is NPO 12-30-23 - Patient was examined at bedside. She is s/p successful lithotripsy. She reports improved urinary frequency. Will REVIEW OF SYSTEMS: CONSTITUTIONAL: No fever, no malaise, no fatigue. CARDIOVASCULAR: No chest pain, orthopnea, PND, no palpitations, no syncope. PULMONARY: No shortness of breath, no cough, no hemoptysis. GASTROINTESTINAL: as per HPI GENITOURINARY: As per HPI PHYSICAL EXAMINATION: GENERAL: The patient is alert and oriented x3, mild distress. Well developed, well nourished. HEENT: Pupils are round and equally reacting to light. EOMI. No scleral icterus. No conjunctival pallor. Normocephalic, atraumatic. No pharyngeal erythema. No thyromegaly. CARDIOVASCULAR: S1 and S2 present. No murmurs, rubs, or gallops. PULMONARY: Chest is clear to auscultation, no wheezing or crackles. ABDOMEN: Soft, tenderness on right side, nondistended, normoactive bowel sounds. No palpable organomegaly. MUSCULOSKELETAL: No joint swelling or deformity. EXTREMITIES: No cyanosis, clubbing, or pedal edema. NEUROLOGICAL: Gross neurological examination did not reveal any focal deficits. SKIN: No rashes. Assessment and plan #Nephrolithiasis likely due to hypercalcemia - serum Ca 10.9 - CT AP - severe right-sided hydronephrosis, 12 X13 X 9 mm obstruction right UPJ calculus - continue supportive care - continue ceftrioxone - PTH 154 - suspecting primary hyperparathyroidism - follow up outpatient with endocrinology - daily CBC and CMP - surgery following - s/p ureteroscopy with homing laser lithotripsy - Counseled patient low-sodium diet and meat, low oxalate foods and low sucrose/fructose #UTI likely secondary to nephrolithiasis - urinary analysis with ketones, LE positive, RBC, and WBC. - continue abx as above - WBC downtrending #Hyperglycemia - Hba1c 6.0 - glucose 142 on admission - continue regular BM monitoring - continue sliding scale insulin Monitor vital signs Labs and medication were reviewed.. Continue same treatment. Continue with symptomatic treatment. Resume home medication. Monitor labs and vitals. DVT and GI prophylaxis. Further recommendations as per clinical course of the patient Dictation was produced using [employer] dictation software. please excuse any gr ammatical, word or spelling errors. Objective - Vital Signs Vital signs: Vital Signs Temp 98.8 F 12/30/23 02:00 Pulse 62 12/30/23 02:00 Resp 18 12/30/23 02:00 BP 147/84 12/30/23 02:00 Pulse Ox 94 L 12/30/23 02:00 FiO2 Intake & Output 12/29/23 12/30/23 12/30/23 18:59 06:59 18:59 Intake Total 1568 Output Total 5 Balance 1563 Intake: IV 1450 Oral 118 Output: Estimated Blood Loss 5 Other: Voiding Method Toilet # Voids 2 - Labs CBC & Chem 7: 12/29/23 07:09 12/29/23 07:09 Labs: Abnormal Lab Results - Last 24 Hours (Table) 12/29/23 12/29/23 12/29/23 Range/Units 07:09 07:09 07:09 WBC 11.37 H (4.50-10.00) X 10*3/uL MCHC 30.1 L (32.0-37.0) g/dL Immature Gran # 0.07 H (0.00-0.04) X 10*3/uL Neutrophils # 8.94 H (1.80-7.70) X 10*3/uL Eosinophils # 0 L (0.04-0.35) X 10*3/uL Glucose 144 H (70-110) mg/dL POC Glucose (mg/dL) (70-110) mg/dL Albumin/Globulin Ratio 1.44 L (1.60-3.17) Ratio PTH Intact 154.0 H (14.0-72.0) pg/mL 12/29/23 12/29/23 12/29/23 Range/Units 08:00 12:09 16:30 WBC (4.50-10.00) X 10*3/uL MCHC (32.0-37.0) g/dL Immature Gran # (0.00-0.04) X 10*3/uL Neutrophils # (1.80-7.70) X 10*3/uL Eosinophils # (0.04-0.35) X 10*3/uL Glucose (70-110) mg/dL POC Glucose (mg/dL) 137 H 142 H 157 H (70-110) mg/dL Albumin/Globulin Ratio (1.60-3.17) Ratio PTH Intact (14.0-72.0) pg/mL 12/29/23 12/30/23 12/30/23 Range/Units 20:40 00:20 06:18 WBC (4.50-10.00) X 10*3/uL MCHC (32.0-37.0) g/dL Immature Gran # (0.00-0.04) X 10*3/uL Neutrophils # (1.80-7.70) X 10*3/uL Eosinophils # (0.04-0.35) X 10*3/uL Glucose (70-110) mg/dL POC Glucose (mg/dL) 161 H 135 H 129 H (70-110) mg/dL Albumin/Globulin Ratio (1.60-3.17) Ratio PTH Intact (14.0-72.0) pg/mL Microbiology - Last 24 Hours (Table) 12/28/23 21:50 Blood Culture - Preliminary Blood
[2023-12-30 08:34] LABS: Glucose,Whole Blood 112 mg/dL (70-110)
--- NOTE | 2023-12-30 08:43 | P.PN ---
Subjective Progress Note Date: 12/30/23 Underwent right-sided ureteroscopy with holmium laser yesterday, doing well this morning Objective - Vital Signs Vital signs: Vital Signs Temp 98.8 F 12/30/23 02:00 Pulse 62 12/30/23 02:00 Resp 18 12/30/23 02:00 BP 147/84 12/30/23 02:00 Pulse Ox 94 L 12/30/23 02:00 FiO2 Intake & Output 12/29/23 12/30/23 12/30/23 18:59 06:59 18:59 Intake Total 1568 Output Total 5 Balance 1563 Intake: IV 1450 Oral 118 Output: Estimated Blood Loss 5 Other: Voiding Method Toilet # Voids 2 - Constitutional General appearance: Present: no acute distress - Gastrointestinal General gastrointestinal: Present: soft. Absent: distended, tenderness - Labs CBC & Chem 7: 12/29/23 07:09 12/29/23 07:09 Labs: Abnormal Lab Results - Last 24 Hours (Table) 12/29/23 12/29/23 12/29/23 Range/Units 07:09 07:09 07:09 WBC 11.37 H (4.50-10.00) X 10*3/uL MCHC 30.1 L (32.0-37.0) g/dL Immature Gran # 0.07 H (0.00-0.04) X 10*3/uL Neutrophils # 8.94 H (1.80-7.70) X 10*3/uL Eosinophils # 0 L (0.04-0.35) X 10*3/uL Glucose 144 H (70-110) mg/dL POC Glucose (mg/dL) (70-110) mg/dL Albumin/Globulin Ratio 1.44 L (1.60-3.17) Ratio PTH Intact 154.0 H (14.0-72.0) pg/mL 12/29/23 12/29/23 12/29/23 Range/Units 12:09 16:30 20:40 WBC (4.50-10.00) X 10*3/uL MCHC (32.0-37.0) g/dL Immature Gran # (0.00-0.04) X 10*3/uL Neutrophils # (1.80-7.70) X 10*3/uL Eosinophils # (0.04-0.35) X 10*3/uL Glucose (70-110) mg/dL POC Glucose (mg/dL) 142 H 157 H 161 H (70-110) mg/dL Albumin/Globulin Ratio (1.60-3.17) Ratio PTH Intact (14.0-72.0) pg/mL 12/30/23 12/30/23 12/30/23 Range/Units 00:20 06:18 08:32 WBC (4.50-10.00) X 10*3/uL MCHC (32.0-37.0) g/dL Immature Gran # (0.00-0.04) X 10*3/uL Neutrophils # (1.80-7.70) X 10*3/uL Eosinophils # (0.04-0.35) X 10*3/uL Glucose (70-110) mg/dL POC Glucose (mg/dL) 135 H 129 H 112 H (70-110) mg/dL Albumin/Globulin Ratio (1.60-3.17) Ratio PTH Intact (14.0-72.0) pg/mL Microbiology - Last 24 Hours (Table) 12/28/23 21:50 Blood Culture - Preliminary Blood Assessment and Plan Assessment: 53-year-old female with history of a 1 cm right-sided proximal ureteral stone, underwent right-sided ureteroscopy with holmium laser yesterday -Okay for discharge from urology standpoint, can follow-up in 1 week in our o ffice for a stent removal
[2023-12-30 12:15] LABS: Basophils # (A) 0.02 X 10*3/uL (0.00-0.10); Basophils % (A) 0.2 %; Eosinophils # (A) 0 X 10*3/uL (0.04-0.35); Eosinophils % (A) 0 %; HCT 39.1 % (37.2-46.3); HGB 12.3 g/dL (12.0-15.0); Lymphocytes # (A) 1.28 X 10*3/uL (0.90-5.00); Lymphocytes % (A) 15.7 %; MCH 28.5 pg (27.0-32.0); MCHC 31.5 g/dL (32.0-37.0); MCV 90.7 FL (80.0-97.0); Mean Platelet Volume 11.3 FL (9.5-12.2); Monocytes % (A) 7.4 %; NRBC Per 100 WBC 0 X 10*3/uL (0.00-0.01); Neutrophils # (A) 6.21 X 10*3/uL (1.80-7.70); Neutrophils % (A) 76.3 %; Platelet Count 212 X 10*3/uL (140-440); RBC 4.31 X 10*6/uL (4.10-5.20); RDW 13.2 % (11.5-14.5); WBC 8.14 X 10*3/uL (4.50-10.00)
[2023-12-30 12:23] LABS: Blood Urea Nitrogen 16.8 mg/dL (9.0-27.0); Calcium 10.3 mg/dL (8.7-10.3); Carbon Dioxide 24.7 mmol/L (21.6-31.8); Chloride 106 mmol/L (96-109); Glucose 123 mg/dL (70-110); Potassium 3.8 mmol/L (3.5-5.5); Sodium 139 mmol/L (135-145)
[2023-12-30 12:26] LABS: Glucose,Whole Blood 116 mg/dL (70-110)
[2023-12-30 14:57] VITALS: BP 115/74; PULSE 61; RESP 16; TEMP 97.9
--- NOTE | 2023-12-30 15:57 | P.DS ---
Providers Date of admission: 12/28/23 06:26 Expected date of discharge: 12/30/23 Attending physician: Yecenia Chase Consults: 12/28/23 06:25 Consult Physician Routine Consulting Provider: Kaleb Siddiqui Consult Reason/Comments: renal stone, UTI Do you want consulting provider notified?: Already Contacted Primary care physician: Daniel Moreno - Discharge Diagnosis(es) (1) Pyelonephritis, unspecified Current Visit: Yes Status: Acute (2) Calculus of kidney Current Visit: Yes Status: Acute Hospital Course: Discharge diagnoses; #Nephrolithiasis due to hypercalcemia - serum Ca 10.9, PTH 154 - suspecting primary hyperparathyroidism - follow up outpatient with endocrinology to confirm - s/p ureteroscopy with homing laser lithotripsy, follow up in 1 week - Counseled patient low-sodium diet and meat, low oxalate foods and low sucrose/fructose #Pyelonephritis secondary to nephrolithiasis - urinary analysis with ketones, LE positive, RBC, and WBC. - discharge with ceftim 7 day course #Hyperglycemia - Hba1c 6.0 - glucose 142 on admission, elevated throughout course Hospital course; History of present illness; Kelly Cabrera 53-year-old female presents with right-sided abdominal pain. Patient presents with 2-day history of progressive right-sided abdominal pain which began at right loin and has since radiated to right groin area. Her pain began dull in nature and has since become sharp and stabbing. During this time she has associated nausea and vomiting. Also during this time, patient reports gradually difficulty with urination and decreasing urine output. Patient denies blood in urine or other urinary symptoms. She has no previous history of similar occurrences. She was initially seen in the emergency room 2 days ago and sent home with Keflex, and returned back to the hospital after her symptoms continued to worsen. She denies fever chills and urinary frequency. She has no other complaints at this time. Initial lab work done in the ER showed WBC 10.9, neutrophils 9.2, increased glucose, calcium 10.9, bilirubin 1.4, urinary analysis with ketones, LE positive, RBC, WBC. EKG done in the ER showed heart rate of 54, no ST segment elevation or depression seen, no T-wave inversions seen. CT/AP -severe right-sided hydronephrosis, 12 X13 X 9 mm obstruction right UPJ calculus. Also small stone in the right pole. Small stone in left kidney. 12-29-23 - Patient was examined at bedside, she reports increased urinary frequency, vomiting and moderate pain overnight that improved with medication. She has planned ureteroscopy with homing laser lithotripsy in afternoon. Patient is NPO 12-30-23 - Patient was examined at bedside. She is s/p successful lithotripsy. She reports improved urinary frequency and pain. Will d/c to home on 7 day course of Ceftim for pyelonephritis. Patient to follow with endocrinology and urology outpatient in 1 week. PHYSICAL EXAMINATION: GENERAL: The patient is alert and oriented x3, mild distress. Well developed, well nourished. HEENT: Pupils are round and equally reacting to light. EOMI. No scleral icterus. No conjunctival pallor. Normocephalic, atraumatic. No pharyngeal erythema. No thyromegaly. CARDIOVASCULAR: S1 and S2 present. No murmurs, rubs, or gallops. PULMONARY: Chest is clear to auscultation, no wheezing or crackles. ABDOMEN: Soft, mild tenderness on right side, nondistended, normoactive bowel sounds. No palpable organomegaly. MUSCULOSKELETAL: No joint swelling or deformity. EXTREMITIES: No cyanosis, clubbing, or pedal edema. NEUROLOGICAL: Gross neurological examination did not reveal any focal deficits. SKIN: No rashes. Dictation was produced using [employer] dictation software. please excuse any grammatical, word or spelling errors. Procedures: s/p right-sided ureteroscopy with holmium laser Patient Condition at Discharge: Stable Plan - Discharge Summary New Discharge Prescriptions: New cefUROXime axetiL [Ceftin] 500 mg PO BID 7 Days #14 tab HYDROcodone/APAP 5-325MG [[place] 5-325] 1 tab PO Q6HR PRN 3 Days #12 tab PRN Reason: Pain Docusate [Colace] 100 mg PO BID PRN 7 Days #14 capsule PRN Reason: Constipation Discontinued Cephalexin [Keflex] 500 mg PO Q12HR 10 Days #20 cap Discharge Medication List Docusate [Colace] 100 mg PO BID PRN 7 Days #14 capsule 12/30/23 [Rx] HYDROcodone/APAP 5-325MG [[place] 5-325] 1 tab PO Q6HR PRN 3 Days #12 tab 12/30/23 [Rx] cefUROXime axetiL [Ceftin] 500 mg PO BID 7 Days #14 tab 12/30/23 [Rx] Follow up Appointment(s)/Referral(s): Honorio Cartwright MD [STAFF PHYSICIAN] - 01/04/24 3:00 pm (Cystoscopy stent removal) None,Stated [REFERRING] - 1-2 days
== END 2023-12-30 16:33 | disposition home or self-care (01) | DRG 446 ==
LOC: EC 22:58 → 6NMEDSUR 12-28 06:25 → OBSVTOIN 12-28 06:26 → 6NMEDSUR 12-28 06:36
PROVIDERS: ADMIT Hospitalist; ATTEND Hospitalist
PROC: 0T768DZ Dilation of Right Ureter with Intraluminal Device, Via Natural or Artificial Opening Endoscopic (ICD-10-PCS; principal; 2023-12-29 07:30)
PROC: 0TC68ZZ Extirpation of Matter from Right Ureter, Via Natural or Artificial Opening Endoscopic (ICD-10-PCS; principal; 2023-12-29 07:30)
DX: N13.6 Pyonephrosis (principal); E66.8 Other obesity; R73.9 Hyperglycemia, unspecified; Z68.34 Body mass index [BMI] 34.0-34.9, adult; Z86.14 Personal history of Methicillin resistant Staphylococcus aureus infection; Z88.5 Allergy status to narcotic agent; Z88.8 Allergy status to other drugs, medicaments and biological substances; E21.0 Primary hyperparathyroidism
CPT/HCPCS: 36415; 74177; 80048; 80053; 81001; 82150; 82365; 83036; 83605; 83690; 83970; 85025; 87040; 93005; 96361; 96374; 96375; 96376; 99285

== ENCOUNTER 2024-02-26 19:50 | Observation (INO) | payer OTHER ==
--- NOTE | 2024-02-26 20:07 | ED ---
Abdominal Pain HPI - General Source: patient Mode of arrival: wheelchair Limitations: no limitations <Rosa Vanessa - Last Filed: 02/26/24 20:07> - General Source: patient, RN notes reviewed Mode of arrival: wheelchair Limitations: no limitations - History of Present Illness MD Complaint: abdominal pain, flank pain <Renee Frazier - Last Filed: 02/27/24 05:14> - General Chief Complaint: Abdominal Pain Stated Complaint: Back Pain,Vomiting Time Seen by Provider: 02/26/24 20:07 - History of Present Illness Initial Comments: 53-year-old female presenting chief complaint of left-sided flank pain. History of kidney stones. Admits to nausea and vomiting. (Rosa Vanessa) This is a 53-year-old female who presents to the emergency department for left- sided flank pain. States that it started a couple of hours prior to arrival. She has associated nausea and vomiting. She was admitted 2 months ago for right flank pain and found to have a kidney stone and states that symptoms feel the same. She had a lithotripsy at that time. Denies any fevers or chills. (Renee Frazier) - Related Data Previous Rx's Medication Instructions Recorded Docusate [Colace] 100 mg PO BID PRN 7 Days #14 12/30/23 capsule HYDROcodone/APAP 5-325MG [Cashion 1 tab PO Q6HR PRN 3 Days #12 tab 12/30/23 5-325] cefUROXime axetiL [Ceftin] 500 mg PO BID 7 Days #14 tab 12/30/23 Allergies Allergy/AdvReac Type Severity Reaction Status Date / Time meperidine HCl [From Demerol] Allergy Anaphylaxis Verified 02/26/24 20:07 propoxyphene Allergy Dyspnea Verified 02/26/24 20:07 [From Darvocet-N] propoxyphene napsylate Allergy Anaphylaxis Verified 02/26/24 20:07 [From Darvocet-N 100] ketorolac AdvReac Chest Pain Verified 02/26/24 20:07 Review of Systems ROS Other: All systems not noted in ROS Statement are negative. <Rosa Vanessa - Last Filed: 02/26/24 20:07> ROS Other: All systems not noted in ROS Statement are negative. <Renee Frazier - Last Filed: 02/27/24 05:14> ROS Statement: Those systems with pertinent positive or pertinent negative responses have been documented in the HPI. Past Medical History Past Medical History: No Reported History Additional Past Medical History / Comment(s): head injury, kidney stones History of Any Multi-Drug Resistant Organisms: MRSA Date of last positivie culture/infection: 07/14/17 MDRO Source:: abdomen Past Surgical History: Section, Cholecystectomy, Hysterectomy Past Psychological History: No Psychological Hx Reported Smoking Status: Never smoker Past Alcohol Use History: None Reported Past Drug Use History: None Reported <Rosa Vanessa - Last Filed: 02/26/24 20:07> General Exam Limitations: no limitations <Rosa Vanessa - Last Filed: 02/26/24 20:07> Limitations: no limitations General appearance: alert, in distress Head exam: Present: atraumatic, normocephalic, normal inspection Respiratory exam: Present: normal lung sounds bilaterally. Absent: respiratory distress, wheezes, rales, rhonchi, stridor Cardiovascular Exam: Present: regular rate, normal rhythm, normal heart sounds. Absent: systolic murmur, diastolic murmur, rubs, gallop, clicks GI/Abdominal exam: Present: soft, normal bowel sounds. Absent: distended, tenderness, guarding, rebound, rigid Back exam: Present: CVA tenderness (L). Absent: CVA tenderness (R) Neurological exam: Present: alert, oriented X3, CN II-XII intact Psychiatric exam: Present: normal affect, normal mood Skin exam: Present: warm, dry, intact, normal color. Absent: rash <Renee Frazier - Last Filed: 02/27/24 05:14> - General Exam Comments Initial Comments: Visual Physical Exam Vital signs reviewed General: Well-appearing, nontoxic, no acute distress. Head: Normocephalic, atraumatic Eyes: PERRLA, EOMI ENT: Airway patent Chest: Nonlabored breathing Skin: No visual rash, normal skin tone Neuro: Alert and oriented 3 Musculoskeletal: No gross abnormalities (Rosa Vanessa) Course Vital Signs 02/26/24 02/26/24 02/27/24 20:01 23:26 04:58 Temperature 97.4 F L 97.3 F L 96.9 F L Pulse Rate 48 L 52 L 47 L Respiratory 18 20 14 Rate Blood Pressure 133/99 119/75 O2 Sat by Pulse 96 98 95 Oximetry Medical Decision Making <Rosa Vanessa - Last Filed: 02/26/24 20:07> - Lab Data Result diagrams: 02/26/24 23:35 02/26/24 23:35 - Radiology Data Radiology results: report reviewed, image reviewed <Renee Frazier - Last Filed: 02/27/24 05:14> - Medical Decision Making I performed the quick note portion of this visit, electronically signed Rosa Vanessa PA-C (Rosa Vanessa) This is a 53-year-old female who presents to the emergency department for left flank pain. Was pt. sent in by a medical professional or institution? @ -No Did you speak to anyone other than the patient for history? @ -No Did you review nursing and triage notes? @ -Yes, and I agree, it is accurate with regards to the patient's symptoms. Were old charts reviewed? @ -No Differential Diagnosis? @ -Differential Flank Pain: UTI, pyelonephritis, kidney stone, musculoskeletal, pancreatitis, cholecystitis, this is not meant to be an all-inclusive list. EKG interpreted by me (3pts min.)? @ -Not obtained X-rays interpreted by me (1pt min.)? @ -Not obtained CT interpreted by me (1pt min.)? @ -CT scan of the abdomen and pelvis obtained. My interpretation identifies a left ureteral calculus U/S interpreted by me (1pt. min.)? @ -Not obtained What testing was considered but not performed? (CT, X-rays, U/S, labs)? Why? @ -None What meds were considered but not given? Why? @ -None Did you discuss the management of the patient with other professionals? @ -No Did you reconcile home meds? @ -No Was smoking cessation discussed for >3mins.? @ -No Was critical care preformed (if so, how long)? @ -No Were there social determinants of health that impacted care today? How? (Homelessness, low income, unemployed, alcoholism, drug addiction, transportation, low edu. Level, literacy, decrease access to med. care, [facility], rehab)? @ -No Was there de-escalation of care discussed even if they declined? (Discuss DNR or withdrawal of care, Hospice)? @ -No What co-morbidities impacted this encounter? (DM, HTN, Smoking, COPD, CAD, Cancer, CVA, Hep., AIDS, mental health diagnosis, sleep apnea, morbid obesity)? @ -None Was patient admitted / discharged? @ -Admitted. Lab work demonstrates leukocytosis with a white blood cell count of 12.8. CT scan of the abdomen and pelvis demonstrates a 4 mm calculus in the left ureteropelvic junction with mild to moderate upstream hydronephrosis and moderate perinephric stranding. Findings reviewed with the patient. She continued to be in fairly severe pain despite receiving the pain medications and also struggled to control the vomiting. Patient subsequently admitted to medicine for intractable pain related to the left ureteral calculus. Consult was placed for urology. Patient kept n.p.o. in the event any intervention needs to take place. UA results pending at the time of admission. Case discussed with ED attending, Dr. King. Undiagnosed new problem with uncertain prognosis? @ -None Drug Therapy requiring intensive monitoring for toxicity (Heparin, Nitro, Insulin, Cardizem)? @ -None Were any procedures done? @ -None Diagnosis/symptom? @ -Left ureteral calculus, hydronephrosis, intractable pain Acute, or Chronic, or Acute on Chronic? @ -Acute Uncomplicated (without systemic symptoms) or Complicated (systemic symptoms)? @ -Complicated Side effects of treatment? @ -None Exacerbation, Progression, or Severe Exacerbation] @ -Not applicable Poses a threat to life or bodily function? @ -Yes, the pain is limiting her ability to function (Renee Frazier) - Lab Data Lab Results 02/26/24 02/26/24 Range/Units 23:35 23:35 WBC 12.8 H (3.8-10.6) k/uL RBC 4.62 (3.80-5.40) m/uL Hgb 13.5 (11.4-16.0) gm/dL Hct 41.9 (34.0-46.0) % MCV 90.6 (80.0-100.0) fL MCH 29.3 (25.0-35.0) pg MCHC 32.4 (31.0-37.0) g/dL RDW 13.7 (11.5-15.5) % Plt Count 231 (150-450) k/uL MPV 7.7 Neutrophils % 84 % Lymphocytes % 10 % Monocytes % 5 % Eosinophils % 1 % Basophils % 0 % Neutrophils # 10.7 H (1.3-7.7) k/uL Lymphocytes # 1.3 (1.0-4.8) k/uL Monocytes # 0.6 (0-1.0) k/uL Eosinophils # 0.1 (0-0.7) k/uL Basophils # 0.0 (0-0.2) k/uL Hypochromasia Slight Sodium 137 (137-145) mmol/L Potassium 5.8 H (3.5-5.1) mmol/L Chloride 109 H (98-107) mmol/L Carbon Dioxide 21 L (22-30) mmol/L Anion Gap 7 mmol/L BUN 17 (7-17) mg/dL Creatinine 0.59 (0.52-1.04) mg/dL Est GFR (CKD-EPI)AfAm >90 (>60 ml/min/1.73 sqM) Est GFR (CKD-EPI)NonAf >90 (>60 ml/min/1.73 sqM) Glucose 191 H (74-99) mg/dL Calcium 10.5 H (8.4-10.2) mg/dL Total Bilirubin 1.9 H (0.2-1.3) mg/dL AST 64 H (14-36) U/L ALT 32 (4-34) U/L Alkaline Phosphatase 74 (38-126) U/L Total Protein 8.2 (6.3-8.2) g/dL Albumin 4.6 (3.5-5.0) g/dL Disposition <Rosa Vanessa - Last Filed: 02/26/24 20:07> <Renee Frazier - Last Filed: 02/27/24 05:14> Clinical Impression: Left ureteral calculus, Hydronephrosis, left, Intractable pain Disposition: ADMITTED IP TO THIS [facility] Referrals: Daniel Moreno DO [Primary Care Provider] - 1-2 days
--- NOTE | 2024-02-26 22:52 | CT ---
EXAMINATION TYPE: CT abdomen pelvis wo con CT DLP: 1226.6 mGycm, Automated exposure control for dose reduction was used. DATE OF EXAM: 02/26/2024 9:14 PM COMPARISON: CT 7024 CLINICAL INDICATION:Female, 53 years old with history of L flank pain; left flank pain TECHNIQUE: Axial CT of the abdomen and pelvis. Sagittal and coronal reformats were created on a [employer] workstation. Contrast used: mL of , (none if empty) Oral contrast used: without Oral Contrast (none if empty) FINDINGS: LOWER CHEST: No acute infiltrate. Heart size upper normal. Small hiatal hernia. ABDOMEN LIVER: Unremarkable GALLBLADDER AND BILE DUCTS: The gallbladder is surgically absent. Biliary tree does not appear pathol ogically dilated. PANCREAS: Unremarkable. SPLEEN: Unremarkable. ADRENAL GLANDS: Mildly thickened, may be seen with hyperplasia.. KIDNEYS AND URETERS: Previous right UPJ calculus and obstructive uropathy no longer identified. On th e left, there is now a 4 mm calculus at the ureteropelvic junction, with mild to moderate upstream hy dronephrosis and moderate perinephric stranding. The more distal ureter appears of normal caliber. Pu nctate renal calculus in the mid left kidney as well. Pelvic calcifications appear to be phleboliths. PELVIS BLADDER: Unremarkable REPRODUCTIVE: Uterus and adnexal regions appear grossly unremarkable, though not well assessed by CT. ABDOMEN & PELVIS STOMACH AND BOWEL: Stomach and small bowel are nondistended, no evidence of obstruction. No evidenc e of appendicitis. There is some stool and gas seen throughout the colon with no focal acute abnorma lity shown. PERITONEUM/RETROPERITONEUM: No evidence of pneumoperitoneum or free fluid. VASCULATURE: Aorta and major branches are grossly unremarkable. No AAA. LYMPH NODES: No enlarged nodes by CT size criteria. SOFT TISSUE/ABDOMINAL WALL: Small fat-containing umbilical hernia. MUSCULOSKELETAL: Moderate degenerative changes visualized spine. Mild degenerative anterolisthesis L4 over L5. IMPRESSION: 1. A 4 mm calculus at the left ureteropelvic junction, with mild to moderate upstream hydronephrosis and moderate perinephric stranding. 2. Punctate left renal calculus.
[2024-02-26] MEDS: ONDANSETRON 4 MG/2 ML VIAL IVP STA (23:46)
[2024-02-26] MEDS: HYDROmorphone 1 MG/ML 1 ML SYRINGE IVP STA (23:47)
[2024-02-26 23:49] LABS: Basophils % (A) 0 %; Eosinophils # (A) 0.1 k/uL (0-0.7); Eosinophils % (A) 1 %; HCT 41.9 % (34.0-46.0); HGB 13.5 gm/dL (11.4-16.0); Hypochromasia Slight; Lymphocytes # (A) 1.3 k/uL (1.0-4.8); Lymphocytes % (A) 10 %; MCH 29.3 pg (25.0-35.0); MCHC 32.4 g/dL (31.0-37.0); MCV 90.6 fL (80.0-100.0); Mean Platelet Volume 7.7; Monocytes # (A) 0.6 k/uL (0-1.0); Monocytes % (A) 5 %; Neutrophils # (A) 10.7 k/uL (1.3-7.7); Neutrophils % (A) 84 %; Platelet Count 231 k/uL (150-450); RBC 4.62 m/uL (3.80-5.40); RDW 13.7 % (11.5-15.5); WBC 12.8 k/uL (3.8-10.6)
[2024-02-27] LABS: ALT 32 U/L (4-34); AST 64 U/L (14-36); African American GFR (CKD) >90 (>60 ml/min/1.73 sqM); Albumin 4.6 g/dL (3.5-5.0); Alkaline Phosphatase 74 U/L (38-126); Anion Gap 7 mmol/L; Blood Urea Nitrogen 17 mg/dL (7-17); Calcium 10.5 mg/dL (8.4-10.2); Carbon Dioxide 21 mmol/L (22-30); Chloride 109 mmol/L (98-107); Glucose 191 mg/dL (74-99); Non-African American GFR(CKD) >90 (>60 ml/min/1.73 sqM); Sodium 137 mmol/L (137-145); Total Bilirubin 1.9 mg/dL (0.2-1.3); Total Protein 8.2 g/dL (6.3-8.2)
[2024-02-27 00:29] LABS: Potassium 5.8 mmol/L (3.5-5.1)
[2024-02-27] MEDS: SODIUM CHLORIDE 0.9% 1,000 ML IV STA ×2 (02:36→04:15)
[2024-02-27] MEDS: PROCHLORPERAZINE INJ 10 MG/2 ML VIAL IVP STA (02:36)
[2024-02-27] MEDS: MORPHINE SULFATE 4 MG/ML SYRINGE IVP STA ×2 (02:37→06:39)
[2024-02-27] MEDS ORDERED: NALOXONE 0.4 MG/ML 1 ML VIAL IV PRN (05:14)
[2024-02-27] MEDS ORDERED: HYDROcodone/APAP 5-325MG 1 EACH TAB PO PRN (05:14)
[2024-02-27] MEDS ORDERED: ACETAMINOPHEN TAB 325 MG TAB PO PRN (05:14)
[2024-02-27] MEDS: INSULIN REGULAR 100 UNIT/ML VIAL (IV) IV ONE (09:56)
[2024-02-27] MEDS: CALCIUM GLUCONATE IN NACL 1 GM in SALINE 1 100ML.BAG IVPB ONE (09:57)
[2024-02-27] MEDS: DEXTROSE 50% SYRINGE 50 ML IVP STA (09:57)
[2024-02-27] MEDS: PANTOPRAZOLE 40 MG/10 ML VIAL IV SCH (09:57)
[2024-02-27 10:28] LABS: Appearance,Urine Clear (Clear); Bacteria,Urine Rare /hpf; Bilirubin,Urine Negative (Negative); Blood,Urine Moderate (Negative); Color,Urine Light Yellow; Glucose,Urine (UA) Trace (Negative); Ketones,Urine 1+ (Negative); Leukocyte Esterase,Urine Small (Negative); Mucus,Urine Occasional /hpf; Nitrite,Urine Negative (Negative); PH, Urine 5.5 (5.0-8.0); Protein,Urine Trace (Negative); RBC,Urine 29 /hpf (0-5); Specific Gravity,Urine 1.014 (1.001-1.035); Squamous Epithelial Cell,Urine 1 /hpf (0-4); Urobilinogen,Urine <2.0 mg/dL (<2.0); WBC,Urine 11 /hpf (0-5)
--- NOTE | 2024-02-27 11:55 | P.HPIM ---
History of Present Illness H&P Date: 02/27/24 History of present illness: 53-year-old female with no significant past medical history, history of renal stone who presented to ER with the sudden onset left-sided flank pain. Patient stated that she was walking yesterday, was in usual state of health when she started to have left flank pain suddenly, also had associated nausea and vomiting, vomited multiple times, also reported sweating denied any fever or chills. Patient denied any dysuria urgency frequency. Patient stated that the pain was severe in intensity, sharp, radiating to left inguinal region. Patient was admitted 2 months ago for right flank pain and was found to have kidney stone and reported similar symptom at that time, patient had lithotripsy at that time. In the ED patient was afebrile, heart rate 83, respiratory rate 14, blood pressure 135/83, saturating 95% on room air. WBCs 12.8, hemoglobin 13.5, platelet 231. Absolute neutrophils 10.7. Sodium 137, potassium 5.8, chloride 109, CO2 21, BUN 17, creatinine 0.59. Glucose 191. Calcium 10.5, total bilirubin 1.9, AST 64, ALT 32, alkaline phosphatase 74. UA was positive for moderate blood, trace urinary protein, trace urine glucose, small leukocyte esterase, 29 RBCs, 11 WBCs, 1 schema cell, rare bacteria, occasional urine mucus. CT abdomen pelvis showed 4 mm calculus at the left ureteropelvic junction with mild to moderate upstream hydronephrosis and moderate perinephric stranding, punctate left renal calculus. REVIEW OF SYSTEMS: CONSTITUTIONAL: No fever, no malaise, no fatigue. HEENT: No recent visual problems or hearing problems. Denied any sore throat. CARDIOVASCULAR: No chest pain, orthopnea, PND, no palpitations, no syncope. PULMONARY: No shortness of breath, no cough, no hemoptysis. GASTROINTESTINAL: Nausea vomiting. No abdominal pain NEUROLOGICAL: No headaches, no weakness, no numbness. HEMATOLOGICAL: Denies any bleeding or petechiae. GENITOURINARY: Denies any burning micturition, frequency, or urgency. Left flank tenderness. MUSCULOSKELETAL/RHEUMATOLOGICAL: Denies any joint pain, swelling, or any muscle pain. ENDOCRINE: Denies any polyuria or polydipsia. The rest of the 14-point review of systems is negative. PHYSICAL EXAMINATION: GENERAL: The patient is A&O x3, NAD HEENT: EOMI, Sclerae anicteric, Moist Mucous membranes Neck: Supple, Non tender, No JVD PULMONARY: Equal breath souds B/L, No wheezing, No crackles. CARDIOVASCULAR: S1, S2 present. No murmurs, rubs, or gallops. ABDOMEN: Soft, nontender, nondistended, normoactive bowel sounds. No guarding or rebound tenderness. MUSCULOSKELETAL: Left flank tenderness no edema, No cyanosis. No clubbing. Normal ROM. Intact peripheral pulses. EXTREMITIES: No cyanosis, clubbing, or pedal edema. NEUROLOGICAL: CN 2-12 grossly intact. No FND Assessment and plan: Left ureteral calculus: Mild to moderate hydronephrosisleft: History of renal stone: Presented with acute onset left-sided flank pain, with nausea and vomiting. Potassium 5.8, normal BUN/creatinine. CT abdomen pelvis showed 4 mm calculus at the left ureteropelvic junction with mild to moderate upstream hydronephrosis and moderate perinephric stranding. Pain controlTylenol, [place], morphine IV fluids Monitor renal function and potassium Hyperkalemia protocol with D50/insulin, bicarbonate Rocephin Urology consult DVT prophylaxis SCD Monitor vital signs and labs Continue telemetry monitoring Labs and medication were reviewed. Continue same treatment. Resume home medication. Further recommendations as per clinical course of the patient Dictation was produced using [employer] dictation software. please excuse any grammatical, word or spelling errors. Past Medical History Past Medical History: No Reported History Additional Past Medical History / Comment(s): head injury, kidney stones History of Any Multi-Drug Resistant Organisms: MRSA Date of last positivie culture/infection: 07/14/17 MDRO Source:: abdomen Past Surgical History: Section, Cholecystectomy, Hysterectomy Past Psychological History: No Psychological Hx Reported Smoking Status: Never smoker Past Alcohol Use History: None Reported Past Drug Use History: None Reported Medications and Allergies Home Medications Medication Instructions Recorded Confirmed Type Ibuprofen [Motrin] 600 mg PO TID-W/MEALS PRN 02/27/24 02/27/24 History Allergies Allergy/AdvReac Type Severity Reaction Status Date / Time meperidine HCl [From Demerol] Allergy Anaphylaxis Verified 02/27/24 10:40 propoxyphene Allergy Dyspnea Verified 02/27/24 10:40 [From Darvocet-N] propoxyphene napsylate Allergy Anaphylaxis Verified 02/27/24 10:40 [From Darvocet-N 100] ketorolac AdvReac Chest Pain Verified 02/27/24 10:40 Physical Exam Vitals: Vital Signs Temp Pulse Resp BP Pulse Ox 02/27/24 11:00 72 17 154/90 97 02/27/24 06:42 97.0 F L 83 14 135/83 95 02/27/24 04:58 96.9 F L 47 L 14 119/75 95 02/26/24 23:26 97.3 F L 52 L 20 133/99 98 02/26/24 20:01 97.4 F L 48 L 18 96 Intake and Output 02/26/24 02/27/24 02/27/24 22:59 06:59 14:59 Other: Weight 113.852 kg Results CBC & Chem 7: 02/26/24 23:35 02/26/24 23:35 Labs: Abnormal Lab Results - Last 24 Hours (Table) 02/26/24 02/26/24 02/27/24 Range/Units 23:35 23:35 10:00 WBC 12.8 H (3.8-10.6) k/uL Neutrophils # 10.7 H (1.3-7.7) k/uL Potassium 5.8 H (3.5-5.1) mmol/L Chloride 109 H (98-107) mmol/L Carbon Dioxide 21 L (22-30) mmol/L Glucose 191 H (74-99) mg/dL Calcium 10.5 H (8.4-10.2) mg/dL Total Bilirubin 1.9 H (0.2-1.3) mg/dL AST 64 H (14-36) U/L Urine Protein Trace H (Negative) Urine Glucose (UA) Trace H (Negative) Urine Ketones 1+ H (Negative) Urine Blood Moderate H (Negative) Ur Leukocyte Esterase Small H (Negative) Urine RBC 29 H (0-5) /hpf Urine WBC 11 H (0-5) /hpf Urine Bacteria Rare H (None) /hpf Urine Mucus Occasional H (None) /hpf
[2024-02-27 14:07] LABS: HCT 40.2 % (34.0-46.0); HGB 13.4 gm/dL (11.4-16.0); Hypochromasia Slight; MCHC 33.3 g/dL (31.0-37.0); Mean Platelet Volume 7.8; Platelet Count 231 k/uL (150-450); RBC 4.47 m/uL (3.80-5.40); RDW 13.8 % (11.5-15.5); WBC 9.2 k/uL (3.8-10.6)
[2024-02-27 14:27] LABS: African American GFR (CKD) >90 (>60 ml/min/1.73 sqM); Anion Gap 7 mmol/L; Blood Urea Nitrogen 14 mg/dL (7-17); Calcium 11.1 mg/dL (8.4-10.2); Carbon Dioxide 25 mmol/L (22-30); Chloride 110 mmol/L (98-107); Glucose 115 mg/dL (74-99); Non-African American GFR(CKD) >90 (>60 ml/min/1.73 sqM); Potassium 3.8 mmol/L (3.5-5.1); Sodium 142 mmol/L (137-145)
[2024-02-27] MEDS: MORPHINE SULFATE 4 MG/ML SYRINGE IV PRN (15:04)
[2024-02-27] MEDS: ONDANSETRON 4 MG/2 ML VIAL IVP PRN (15:05)
--- NOTE | 2024-02-27 15:18 | P.GSCN ---
History of Present Illness Consult date: 02/27/24 Reason for Consult: Ureteral stone History of present illness: Is a 53-year-old female with history of hyperparathyroidism, presented to the [facility] with intractable left-sided flank pain. Indicated pain is associated with nausea and vomiting. Denies any dysuria or gross hematuria. He underwent a CT abdomen and pelvis that showed a 4 mm left-sided proximal stone with hydronephrosis. No evidence of any additional bilateral stones. Does have history of right renal stone status post right-sided ureteroscopy with holmium laser in December of this year. Hemodynamically patient is stable, urinalysis is only significant for small leukocytes and RBCs. In the ER her pain has improved at this point she was having mild pain. Review of Systems - Constitutional Denies fever, Denies weight loss - EENT Ears, nose, mouth and throat: Denies dysphagia - Cardiovascular Denies chest pain, Denies shortness of breath - Respiratory Denies cough, Denies 7 - Gastrointestinal Reports abdominal pain, Reports nausea, Reports vomiting - Genitourinary Genitourinary: Reports flank pain, Denies dysuria - Neurological Denies weakness Past Medical History Past Medical History: No Reported History Additional Past Medical History / Comment(s): head injury, kidney stones History of Any Multi-Drug Resistant Organisms: MRSA Year Discovered:: 07/14/17 MDRO Source:: abdomen Past Surgical History: Section, Cholecystectomy, Hysterectomy Past Psychological History: No Psychological Hx Reported Smoking Status: Never smoker Past Alcohol Use History: None Reported Past Drug Use History: None Reported Medications and Allergies Home Medications Medication Instructions Recorded Confirmed Type Ibuprofen [Motrin] 600 mg PO TID-W/MEALS PRN 02/27/24 02/27/24 History Allergies Allergy/AdvReac Type Severity Reaction Status Date / Time meperidine HCl [From Demerol] Allergy Anaphylaxis Verified 02/27/24 10:40 propoxyphene Allergy Dyspnea Verified 02/27/24 10:40 [From Darvocet-N] propoxyphene napsylate Allergy Anaphylaxis Verified 02/27/24 10:40 [From Darvocet-N 100] hydromorphone [From Dilaudid] AdvReac Nausea & Verified 02/27/24 14:57 Vomiting ketorolac AdvReac Chest Pain Verified 02/27/24 10:40 Surgical - Exam Vital Signs Temp Pulse Resp Pulse Ox 97.4 F L 48 L 18 96 02/26/24 20:01 02/26/24 20:01 02/26/24 20:01 02/26/24 20:01 - General no distress, moderate pain - Eyes normal ocular movement, no pale - ENT normal nares, normal mucosa - Respiratory normal expansion, normal respiratory effort - Abdomen Abdomen: soft, non tender, no distended - Psychiatric oriented to time, oriented to person, oriented to place Results - Labs 02/27/24 14:00 02/27/24 14:00 Abnormal Lab Results - Last 24 Hours (Table) 02/26/24 02/26/24 02/27/24 Range/Units 23:35 23:35 10:00 WBC 12.8 H (3.8-10.6) k/uL Neutrophils # 10.7 H (1.3-7.7) k/uL Potassium 5.8 H (3.5-5.1) mmol/L Chloride 109 H (98-107) mmol/L Carbon Dioxide 21 L (22-30) mmol/L Creatinine (0.52-1.04) mg/dL Glucose 191 H (74-99) mg/dL Calcium 10.5 H (8.4-10.2) mg/dL Total Bilirubin 1.9 H (0.2-1.3) mg/dL AST 64 H (14-36) U/L Urine Protein Trace H (Negative) Urine Glucose (UA) Trace H (Negative) Urine Ketones 1+ H (Negative) Urine Blood Moderate H (Negative) Ur Leukocyte Esterase Small H (Negative) Urine RBC 29 H (0-5) /hpf Urine WBC 11 H (0-5) /hpf Urine Bacteria Rare H (None) /hpf Urine Mucus Occasional H (None) /hpf 02/27/24 Range/Units 14:00 WBC (3.8-10.6) k/uL Neutrophils # (1.3-7.7) k/uL Potassium (3.5-5.1) mmol/L Chloride 110 H (98-107) mmol/L Carbon Dioxide (22-30) mmol/L Creatinine 0.49 L (0.52-1.04) mg/dL Glucose 115 H (74-99) mg/dL Calcium 11.1 H (8.4-10.2) mg/dL Total Bilirubin (0.2-1.3) mg/dL AST (14-36) U/L Urine Protein (Negative) Urine Glucose (UA) (Negative) Urine Ketones (Negative) Urine Blood (Negative) Ur Leukocyte Esterase (Negative) Urine RBC (0-5) /hpf Urine WBC (0-5) /hpf Urine Bacteria (None) /hpf Urine Mucus (None) /hpf Diabetes panel 02/26/24 02/27/24 Range/Units 23:35 14:00 Sodium 137 142 (137-145) mmol/L Potassium 5.8 H 3.8 (3.5-5.1) mmol/L Chloride 109 H 110 H (98-107) mmol/L Carbon Dioxide 21 L 25 (22-30) mmol/L BUN 17 14 (7-17) mg/dL Creatinine 0.59 0.49 L (0.52-1.04) mg/dL Glucose 191 H 115 H (74-99) mg/dL Calcium 10.5 H 11.1 H (8.4-10.2) mg/dL AST 64 H (14-36) U/L ALT 32 (4-34) U/L Alkaline Phosphatase 74 (38-126) U/L Total Protein 8.2 (6.3-8.2) g/dL Albumin 4.6 (3.5-5.0) g/dL Calcium panel 02/26/24 02/27/24 Range/Units 23:35 14:00 Calcium 10.5 H 11.1 H (8.4-10.2) mg/dL Albumin 4.6 (3.5-5.0) g/dL Pituitary panel 02/26/24 02/27/24 Range/Units 23:35 14:00 Sodium 137 142 (137-145) mmol/L Potassium 5.8 H 3.8 (3.5-5.1) mmol/L Chloride 109 H 110 H (98-107) mmol/L Carbon Dioxide 21 L 25 (22-30) mmol/L BUN 17 14 (7-17) mg/dL Creatinine 0.59 0.49 L (0.52-1.04) mg/dL Glucose 191 H 115 H (74-99) mg/dL Calcium 10.5 H 11.1 H (8.4-10.2) mg/dL Adrenal panel 02/26/24 02/27/24 Range/Units 23:35 14:00 Sodium 137 142 (137-145) mmol/L Potassium 5.8 H 3.8 (3.5-5.1) mmol/L Chloride 109 H 110 H (98-107) mmol/L Carbon Dioxide 21 L 25 (22-30) mmol/L BUN 17 14 (7-17) mg/dL Creatinine 0.59 0.49 L (0.52-1.04) mg/dL Glucose 191 H 115 H (74-99) mg/dL Calcium 10.5 H 11.1 H (8.4-10.2) mg/dL Total Bilirubin 1.9 H (0.2-1.3) mg/dL AST 64 H (14-36) U/L ALT 32 (4-34) U/L Alkaline Phosphatase 74 (38-126) U/L Total Protein 8.2 (6.3-8.2) g/dL Albumin 4.6 (3.5-5.0) g/dL Assessment and Plan Assessment: Is a 53-year-old female with history of 4 mm left-sided proximal stone, admitted to the hospital for pain control. Discussed with her stone is fairly small and high potential of spontaneous passage. Patient wants to continue with medical expulsive therapy at this time. Discussed if patient continues to have intractable pain then we will consider left-sided ureteroscopy with holmium laser by the patient. Her pain is fairly controlled and medical expulsive therapy is very reasonable -Strain all urine -flomax -Continue IV fluids will reassess tomorrow -Well reassess tomorrow
[2024-02-28 04:12] LABS: Basophils % (A) 0 %; Eosinophils # (A) 0.1 k/uL (0-0.7); Eosinophils % (A) 1 %; HCT 39.9 % (34.0-46.0); HGB 12.6 gm/dL (11.4-16.0); Hypochromasia Slight; Lymphocytes # (A) 2.4 k/uL (1.0-4.8); Lymphocytes % (A) 35 %; MCH 28.8 pg (25.0-35.0); MCHC 31.7 g/dL (31.0-37.0); MCV 90.8 fL (80.0-100.0); Mean Platelet Volume 8.3; Monocytes # (A) 0.4 k/uL (0-1.0); Monocytes % (A) 6 %; Neutrophils # (A) 3.8 k/uL (1.3-7.7); Neutrophils % (A) 57 %; Platelet Count 230 k/uL (150-450); RBC 4.39 m/uL (3.80-5.40); RDW 13.8 % (11.5-15.5); WBC 6.7 k/uL (3.8-10.6)
[2024-02-28 04:28] LABS: African American GFR (CKD) >90 (>60 ml/min/1.73 sqM); Anion Gap 4 mmol/L; Blood Urea Nitrogen 15 mg/dL (7-17); Calcium 10.7 mg/dL (8.4-10.2); Carbon Dioxide 27 mmol/L (22-30); Chloride 109 mmol/L (98-107); Glucose 120 mg/dL (74-99); Non-African American GFR(CKD) >90 (>60 ml/min/1.73 sqM); Potassium 3.6 mmol/L (3.5-5.1); Sodium 140 mmol/L (137-145)
[2024-02-28] MEDS: TAMSULOSIN 0.4 MG CAP.ER.24H PO SCH (08:18)
--- NOTE | 2024-02-28 09:53 | P.PN ---
Subjective Progress Note Date: 02/28/24 the patient was in the hospital with left flank pain. She is identified with a 4 mm mid to proximal ureteral stone on the left. She wanted to pass it spontaneously and it appears as if she did overnight his her is a small calcification in a cup at the bedside. Her left flank pain is primarily gone. Objective - Vital Signs Vital signs: Vital Signs Temp 98.2 F 02/28/24 07:00 Pulse 75 02/28/24 07:00 Resp 16 02/28/24 07:00 BP 118/73 02/28/24 07:00 Pulse Ox 97 02/28/24 07:00 FiO2 Intake & Output 02/27/24 02/28/24 02/28/24 18:59 06:59 18:59 Intake Total 240 Output Total 300 Balance -60 Weight 113.852 kg Intake: Oral 240 Output: Urine 300 Other: Voiding Method Toilet Toilet # Voids 1 - Labs CBC & Chem 7: 02/28/24 02:49 02/28/24 02:49 Labs: Abnormal Lab Results - Last 24 Hours (Table) 02/27/24 02/27/24 02/28/24 Range/Units 10:00 14:00 02:49 Chloride 110 H 109 H (98-107) mmol/L Creatinine 0.49 L (0.52-1.04) mg/dL Glucose 115 H 120 H (74-99) mg/dL Calcium 11.1 H 10.7 H (8.4-10.2) mg/dL Urine Protein Trace H (Negative) Urine Glucose (UA) Trace H (Negative) Urine Ketones 1+ H (Negative) Urine Blood Moderate H (Negative) Ur Leukocyte Esterase Small H (Negative) Urine RBC 29 H (0-5) /hpf Urine WBC 11 H (0-5) /hpf Urine Bacteria Rare H (None) /hpf Urine Mucus Occasional H (None) /hpf Assessment and Plan Assessment: impression: Probable passage of left ureteral calculus Recommendations: From a urologic standpoint the patient can eat and go home. She should follow-up with in our office in about 2 weeks.
--- NOTE | 2024-02-28 13:29 | P.DS ---
Providers Date of admission: 02/27/24 04:56 Expected date of discharge: 02/28/24 Attending physician: Yecenia Chase Consults: 02/27/24 05:14 Consult Physician Urgent Consulting Provider: Honorio Cartwright Consult Reason/Comments: Left ureteral calculus, intractable pain Do you want consulting provider notified?: Yes Primary care physician: Daniel Moreno [place] Hospital Course: Discharge diagnoses: Left ureteral calculus: Mild to moderate hydronephrosisleft: History of renal stone: Presented with acute onset left-sided flank pain, with nausea and vomiting. Potassium 5.8, normal BUN/creatinine. CT abdomen pelvis showed 4 mm calculus at the left ureteropelvic junction with mild to moderate upstream hydronephrosis and moderate perinephric stranding. Pain controlTylenol, [place], morphine IV fluids Monitor renal function and potassium--unremarkable Rocephin Urology consulted--patient passed stone spontaneously, okay to discharge and follow-up with urology in 2 weeks. Hospital course: 53-year-old female with no significant past medical history, history of renal stone who presented to ER with the sudden onset left-sided flank pain. Patient stated that she was walking yesterday, was in usual state of health when she started to have left flank pain suddenly, also had associated nausea and vomiting, vomited multiple times, also reported sweating denied any fever or chills. Patient denied any dysuria urgency frequency. Patient stated that the pain was severe in intensity, sharp, radiating to left inguinal region. Patient was admitted 2 months ago for right flank pain and was found to have kidney stone and reported similar symptom at that time, patient had lithotripsy at that time. In the ED patient was afebrile, heart rate 83, respiratory rate 14, blood pressure 135/83, saturating 95% on room air. WBCs 12.8, hemoglobin 13.5, platelet 231. Absolute neutrophils 10.7. Sodium 137, potassium 5.8, chloride 109, CO2 21, BUN 17, creatinine 0.59. Glucose 191. Calcium 10.5, total bilirubin 1.9, AST 64, ALT 32, alkaline phosphatase 74. UA was positive for moderate blood, trace urinary protein, trace urine glucose, small leukocyte esterase, 29 RBCs, 11 WBCs, 1 schema cell, rare bacteria, occasional urine mucus. CT abdomen pelvis showed 4 mm calculus at the left ureteropelvic junction with mild to moderate upstream hydronephrosis and moderate perinephric stranding, punctate left renal calculus. Patient was admitted hospital for further evaluation and management, patient was continued on symptomatic treatment, received IV fluids. Labs remain unremarkable. Patient received empiric Rocephin during hospitalization. Urology was consulted. Patient probably passed left ureteral calculus spontaneously. Symptoms improved. Okay to discharge per urology and outpatient follow-up in 2 weeks with urology. Follow-up with PCP in 1 week. PHYSICAL EXAMINATION: GENERAL: The patient is A&O x3, NAD HEENT: EOMI, Sclerae anicteric, Moist Mucous membranes Neck: Supple, Non tender, No JVD PULMONARY: Equal breath souds B/L, No wheezing, No crackles. CARDIOVASCULAR: S1, S2 present. No murmurs, rubs, or gallops. ABDOMEN: Soft, nontender, nondistended, normoactive bowel sounds. No guarding or rebound tenderness. MUSCULOSKELETAL: No edema, No cyanosis. No clubbing. Normal ROM. Intact peripheral pulses. EXTREMITIES: No cyanosis, clubbing, or pedal edema. NEUROLOGICAL: CN 2-12 grossly intact. No FND SKIN: No rashes. Dictation was produced using [employer] dictation software. please excuse any grammatical, word or spelling errors. Patient Condition at Discharge: Fair Plan - Discharge Summary Discharge Rx Participant: No New Discharge Prescriptions: New Tamsulosin [Flomax] 0.4 mg PO DAILY #5 cap HYDROcodone/APAP 5-325MG [[place] 5-325] 1 each PO Q4HR PRN #12 tab PRN Reason: Moderate Pain (Scale 4 To 6) Continue Ibuprofen [Motrin] 600 mg PO TID-W/MEALS PRN PRN Reason: Pain Or Fever > 100.5 Discharge Medication List Ibuprofen [Motrin] 600 mg PO TID-W/MEALS PRN 02/27/24 [History] HYDROcodone/APAP 5-325MG [[place] 5-325] 1 each PO Q4HR PRN #12 tab 02/28/24 [Rx] Tamsulosin [Flomax] 0.4 mg PO DAILY #5 cap 02/28/24 [Rx] Follow up Appointment(s)/Referral(s): Honorio Cartwright MD [STAFF PHYSICIAN] - 2 Weeks Daniel Moreno DO [Primary Care Provider] - 1-2 days Discharge Disposition: HOME SELF-CARE
[2024-02-28 15:55] VITALS: BP 109/70; PULSE 70; RESP 18; TEMP 98.4
== END 2024-02-28 17:26 | disposition home or self-care (01) ==
LOC: EC 19:50 → 6NMEDSUR 02-27 04:56
PROVIDERS: ADMIT Hospitalist; ATTEND Hospitalist
DX: N13.2 Hydronephrosis with renal and ureteral calculous obstruction (principal); E87.5 Hyperkalemia; E21.3 Hyperparathyroidism, unspecified; D72.829 Elevated white blood cell count, unspecified; Z88.6 Allergy status to analgesic agent; Z88.5 Allergy status to narcotic agent; Z87.442 Personal history of urinary calculi
CPT/HCPCS: 36415; 74176; 80048; 80053; 81001; 85025; 85027; 87086; 96361; 96365; 96375; 96376; 99284

== ENCOUNTER 2024-09-10 10:17 | Emergency (ER) | payer OTHER ==
[2024-09-10 10:25] VITALS: BP 134/86; TEMP 99.1
--- NOTE | 2024-09-10 10:40 | ED ---
General Adult HPI - General Chief complaint: Upper Respiratory Infection Stated complaint: cough Time Seen by Provider: 09/10/24 10:27 Source: patient, RN notes reviewed Mode of arrival: ambulatory Limitations: no limitations - History of Present Illness Initial comments: Patient is a 54-year-old female present to the emergency department with cough. Patient has not felt well for around 4 days. Patient did have a fever 2 days ago. Cough has occasional yellow sputum. Patient has had some chills and myalgias. Patient states it hurts in the sternal region with cough or deep breaths only. No calf pain or leg swelling. - Related Data Home Medications Medication Instructions Recorded Confirmed Ibuprofen [Motrin] 600 mg PO TID-W/MEALS PRN 02/27/24 02/27/24 Previous Rx's Medication Instructions Recorded HYDROcodone/APAP 5-325MG [[place] 1 each PO Q4HR PRN #12 tab 02/28/24 5-325] Tamsulosin [Flomax] 0.4 mg PO DAILY #5 cap 02/28/24 Allergies Allergy/AdvReac Type Severity Reaction Status Date / Time meperidine HCl [From Demerol] Allergy Anaphylaxis Verified 09/10/24 10:24 propoxyphene Allergy Dyspnea Verified 09/10/24 10:24 [From Darvocet-N] propoxyphene napsylate Allergy Anaphylaxis Verified 09/10/24 10:24 [From Darvocet-N 100] hydromorphone [From Dilaudid] AdvReac Nausea & Verified 09/10/24 10:24 Vomiting ketorolac AdvReac Chest Pain Verified 09/10/24 10:24 Review of Systems ROS Statement: Those systems with pertinent positive or pertinent negative responses have been documented in the HPI. ROS Other: All systems not noted in ROS Statement are negative. Constitutional: Reports: as per HPI, fever, chills Eyes: Denies: eye pain ENT: Reports: congestion. Denies: ear pain Respiratory: Reports: cough Cardiovascular: Reports: as per HPI Endocrine: Denies: fatigue Gastrointestinal: Denies: abdominal pain Musculoskeletal: Denies: back pain Past Medical History Past Medical History: No Reported History Additional Past Medical History / Comment(s): head injury with concussion, kidney stones History of Any Multi-Drug Resistant Organisms: MRSA Date of last positivie culture/infection: 07/14/17 MDRO Source:: abdomen Past Surgical History: Section, Cholecystectomy, Hysterectomy Past Anesthesia/Blood Transfusion Reactions: Postoperative Nausea & Vomiting (PONV) Past Psychological History: No Psychological Hx Reported Smoking Status: Never smoker Past Alcohol Use History: None Reported Past Drug Use History: None Reported General Exam Limitations: no limitations General appearance: alert, in no apparent distress Head exam: Present: normocephalic Eye exam: Present: normal appearance Neck exam: Present: normal inspection Respiratory exam: Present: normal lung sounds bilaterally, chest wall tenderness Cardiovascular Exam: Present: regular rate, normal rhythm, normal heart sounds Expanded Peripheral pulses: 2+: Radial (R), Radial (L), Dorsalis Pedis (R), Dorsalis Pedis (L) GI/Abdominal exam: Present: soft. Absent: tenderness Extremities exam: Present: normal inspection. Absent: pedal edema, calf tenderness Back exam: Present: normal inspection Neurological exam: Present: alert Psychiatric exam: Present: normal affect, normal mood Skin exam: Present: normal color Course Vital Signs 09/10/24 10:21 Temperature 99.1 F Pulse Rate 96 Respiratory 18 Rate Blood Pressure 134/86 O2 Sat by Pulse 96 Oximetry EKG Findings - EKG Results: EKG: interpreted by ERMD, sinus rhythm, normal axis, normal QRS, normal ST/T Medical Decision Making - Medical Decision Making Was pt. sent in by a medical professional or institution (STEVE Aj, HOSTESS PARTY SALES REPRESENTATIVE, urgent care, hospital, or snf...) When possible be specific @ -No Did you speak to anyone other than the patient for history (EMS, parent, family, police, friend...)? What history was obtained from this source @ -No Did you review nursing and triage notes (agree or disagree)? Why? @ -I reviewed and agree with nursing and triage notes Were old charts reviewed (outside hosp., previous admission, EMS record, old EKG, old radiological studies, urgent care reports/EKG's, snf records)? Report findings @ -No old charts were reviewed Differential Diagnosis (chest pain, altered mental status, abdominal pain women, abdominal pain men, vaginal bleeding, weakness, fever, dyspnea, syncope, headache, dizziness, GI bleed, back pain, seizure, CVA, palpatations, mental health, musculoskeletal)? @ -Differential Dyspnea: Coronary syndrome, arrhythmia, tamponade, asthma, COPD, pulmonary embolism, pneumonia, pneumothorax, pulmonary effusion, anaphylaxis, diabetic ketoacidosis, flailed chest, pulmonary contusion, diaphragmatic rupture, anemia, neuromuscular, this is not meant to be an all-inclusive list. EKG interpreted by me (3pts min.). @ -As above X-rays interpreted by me (1pt min.). @ -Chest x-ray shows borderline, possible atelectasis lower lobes CT interpreted by me (1pt min.). @ -CT scan of the chest is somewhat limited. No central pulmonary embolism. No definite pneumonia. Borderline aorta size U/S interpreted by me (1pt. min.). @ -None done What testing was considered but not performed or refused? (CT, X-rays, U/S, labs)? Why? @ -None What meds were considered but not given or refused? Why? @ -None Did you discuss the management of the patient with other professionals (pr ofessionals i.e. , PA, HOSTESS PARTY SALES REPRESENTATIVE, lab, RT, psych nurse, social media editor, director of retail analytics, teacher, code enforcement officer, shelter case manager)? Give summary @ -No Was smoking cessation discussed for >3mins.? @ -No Was critical care preformed (if so, how long)? @ -No Were there social determinants of health that impacted care today? How? (Homelessness, low income, unemployed, alcoholism, drug addiction, transportation, low edu. Level, literacy, decrease access to med. care, penitentiary, rehab)? @ -No Was there de-escalation of care discussed even if they declined (Discuss DNR or withdrawal of care, Hospice)? DNR status @ -No What co-morbidities impacted this encounter? (DM, HTN, Smoking, COPD, CAD, Cancer, CVA, ARF, Chemo, Hep., AIDS, mental health diagnosis, sleep apnea, morbid obesity)? @ -None Was patient admitted / discharged? Hospital course, mention meds given and route, prescriptions, significant lab abnormalities, going to OR and other pertinent info. @ -Patient presents with symptoms of upper respiratory, positive influenza. Symptoms greater than 2 days therefore not a candidate for Tamiflu. Patient re evaluated and updated. Patient will be discharged and recommended follow-up with primary care physician. Patient specifically updated on need for her primary care physician to review CT scan results. Undiagnosed new problem with uncertain prognosis? @ -No Drug Therapy requiring intensive monitoring for toxicity (Heparin, Nitro, Insulin, Cardizem)? @ -No Were any procedures done? @ -No Diagnosis/symptom? @ -Influenza Acute, or Chronic, or Acute on Chronic? @ -Acute Uncomplicated (without systemic symptoms) or Complicated (systemic symptoms)? @ -Default Side effects of treatment? @ -No Exacerbation, Progression, or Severe Exacerbation? @ -No Poses a threat to life or bodily function? How? (Chest pain, [place], [place], pneumonia, PE, COPD, DKA, ARF, appy, cholecystitis, CVA, Diverticulitis, Homicidal, Suicidal, threat to staff... and all critical care pts) @ -No - Lab Data Result diagrams: 09/10/24 11:44 09/10/24 11:44 Lab Results 09/10/24 09/10/24 09/10/24 Range/Units 11:10 11:44 11:44 WBC 3.4 L (3.8-10.6) k/uL RBC 4.95 (3.80-5.40) m/uL Hgb 14.0 (11.4-16.0) gm/dL Hct 43.2 (34.0-46.0) % MCV 87.2 (80.0-100.0) fL MCH 28.3 (25.0-35.0) pg MCHC 32.5 (31.0-37.0) g/dL RDW 13.7 (11.5-15.5) % Plt Count 189 (150-450) k/uL MPV 9.1 Neutrophils % 63 % Lymphocytes % 25 % Monocytes % 7 % Eosinophils % 3 % Basophils % 1 % Neutrophils # 2.2 (1.3-7.7) k/uL Lymphocytes # 0.8 L (1.0-4.8) k/uL Monocytes # 0.2 (0-1.0) k/uL Eosinophils # 0.1 (0-0.7) k/uL Basophils # 0.0 (0-0.2) k/uL PT 12.3 (10.0-12.5) sec INR 1.1 (<1.2) APTT 23.2 (22.0-30.0) sec D-Dimer 1.45 H (<0.60) mg/L FEU Sodium (137-145) mmol/L Potassium (3.5-5.1) mmol/L Chloride (98-107) mmol/L Carbon Dioxide (22-30) mmol/L Anion Gap mmol/L BUN (7-17) mg/dL Creatinine (0.52-1.04) mg/dL Est GFR (CKD-EPI)AfAm (>60 ml/min/1.73 sqM) Est GFR (CKD-EPI)NonAf (>60 ml/min/1.73 sqM) Glucose (74-99) mg/dL Calcium (8.4-10.2) mg/dL Magnesium (1.6-2.3) mg/dL Total Bilirubin (0.2-1.3) mg/dL AST (14-36) U/L ALT (4-34) U/L Alkaline Phosphatase (38-126) U/L Troponin I (0.000-0.034) ng/mL Total Protein (6.3-8.2) g/dL Albumin (3.5-5.0) g/dL Influenza Type A (PCR) Detected A (Not Detectd) Influenza Type B (PCR) Not Detected (Not Detectd) RSV (PCR) Not Detected (Not Detectd) SARS-CoV-2 (PCR) Not Detected (Not Detectd) 09/10/24 09/10/24 Range/Units 11:44 11:44 WBC (3.8-10.6) k/uL RBC (3.80-5.40) m/uL Hgb (11.4-16.0) gm/dL Hct (34.0-46.0) % MCV (80.0-100.0) fL MCH (25.0-35.0) pg MCHC (31.0-37.0) g/dL RDW (11.5-15.5) % Plt Count (150-450) k/uL MPV Neutrophils % % Lymphocytes % % Monocytes % % Eosinophils % % Basophils % % Neutrophils # (1.3-7.7) k/uL Lymphocytes # (1.0-4.8) k/uL Monocytes # (0-1.0) k/uL Eosinophils # (0-0.7) k/uL Basophils # (0-0.2) k/uL PT (10.0-12.5) sec INR (<1.2) APTT (22.0-30.0) sec D-Dimer (<0.60) mg/L FEU Sodium 133 L (137-145) mmol/L Potassium 4.0 (3.5-5.1) mmol/L Chloride 100 (98-107) mmol/L Carbon Dioxide 26 (22-30) mmol/L Anion Gap 7 mmol/L BUN 10 (7-17) mg/dL Creatinine 0.46 L (0.52-1.04) mg/dL Est GFR (CKD-EPI)AfAm >90 (>60 ml/min/1.73 sqM) Est GFR (CKD-EPI)NonAf >90 (>60 ml/min/1.73 sqM) Glucose 123 H (74-99) mg/dL Calcium 10.5 H (8.4-10.2) mg/dL Magnesium 1.6 (1.6-2.3) mg/dL Total Bilirubin 1.1 (0.2-1.3) mg/dL AST 63 H (14-36) U/L ALT 40 H (4-34) U/L Alkaline Phosphatase 86 (38-126) U/L Troponin I <0.012 (0.000-0.034) ng/mL Total Protein 7.4 (6.3-8.2) g/dL Albumin 3.9 (3.5-5.0) g/dL Influenza Type A (PCR) (Not Detectd) Influenza Type B (PCR) (Not Detectd) RSV (PCR) (Not Detectd) SARS-CoV-2 (PCR) (Not Detectd) Disposition Clinical Impression: Influenza Disposition: HOME SELF-CARE Condition: Stable Instructions (If sedation given, give patient instructions): Upper Respiratory Infection (ED), Influenza (ED) Additional Instructions: Please do follow-up with your primary care physician in the next couple of days for recheck. Please have your primary care physician review CT scan results. You will likely need further evaluation. Return for difficulty breathing, increased pain, not tolerating fluids, worsening symptoms or other concerns. [id number] Tylenol or Motrin as needed. Is patient prescribed a controlled substance at d/c from ED?: No Referrals: Daniel Moreno DO [Primary Care Provider] - 1-2 days Time of Disposition: 14:33
[2024-09-10] MEDS: ACETAMINOPHEN TAB 500 MG TAB PO STA (11:49)
[2024-09-10 11:55] LABS: Influenza A Detected (Not Detectd); Influenza B Not Detected (Not Detectd); RSV Not Detected (Not Detectd)
[2024-09-10 11:56] LABS: Basophils % (A) 1 %; Eosinophils # (A) 0.1 k/uL (0-0.7); Eosinophils % (A) 3 %; HCT 43.2 % (34.0-46.0); Lymphocytes # (A) 0.8 k/uL (1.0-4.8); Lymphocytes % (A) 25 %; MCH 28.3 pg (25.0-35.0); MCHC 32.5 g/dL (31.0-37.0); MCV 87.2 fL (80.0-100.0); Mean Platelet Volume 9.1; Monocytes # (A) 0.2 k/uL (0-1.0); Monocytes % (A) 7 %; Neutrophils # (A) 2.2 k/uL (1.3-7.7); Neutrophils % (A) 63 %; Platelet Count 189 k/uL (150-450); RBC 4.95 m/uL (3.80-5.40); RDW 13.7 % (11.5-15.5); WBC 3.4 k/uL (3.8-10.6)
[2024-09-10 12:06] LABS: ALT 40 U/L (4-34); AST 63 U/L (14-36); African American GFR (CKD) >90 (>60 ml/min/1.73 sqM); Albumin 3.9 g/dL (3.5-5.0); Alkaline Phosphatase 86 U/L (38-126); Anion Gap 7 mmol/L; Blood Urea Nitrogen 10 mg/dL (7-17); Calcium 10.5 mg/dL (8.4-10.2); Carbon Dioxide 26 mmol/L (22-30); Chloride 100 mmol/L (98-107); Glucose 123 mg/dL (74-99); Magnesium 1.6 mg/dL (1.6-2.3); Non-African American GFR(CKD) >90 (>60 ml/min/1.73 sqM); Sodium 133 mmol/L (137-145); Total Bilirubin 1.1 mg/dL (0.2-1.3); Total Protein 7.4 g/dL (6.3-8.2)
--- NOTE | 2024-09-10 12:13 | XR ---
EXAMINATION TYPE: XR chest 2V DATE OF EXAM: 09/10/2024 CLINICAL INDICATION: Female, 54 years old with history of Chest Pain, TECHNIQUE: Frontal and lateral views of the chest are obtained. COMPARISON: Chest x-ray December 10, 2021 FINDINGS: There is new bibasilar opacity. The cardiac silhouette size is stable and within normal l imits. The osseous structures are intact. Cholecystectomy clips are redemonstrated. IMPRESSION: New left greater than right bibasilar acute infiltrate and/or atelectasis. [facility], , 09/10/2024 12:10 PM
[2024-09-10 12:19] LABS: INR 1.1 (<1.2); Partial Thromboplastin Time 23.2 sec (22.0-30.0); Prothrombin Time 12.3 sec (10.0-12.5)
--- NOTE | 2024-09-10 13:59 | CT ---
EXAMINATION TYPE: CT angio chest DATE OF EXAM: 09/10/2024 COMPARISON: CTA chest 2016 CLINICAL INDICATION: Female, 54 years old with history of candelaria, CANDELARIA,, TECHNIQUE: CTA scan of the thorax is performed with IV Contrast, patient injected with 100 mL of Isovue 370, pul monary embolism protocol. MIP Images are created on CT scanner and reviewed. CT DLP: 525.3 mGycm. Automated Exposure Control for Dose Reduction was Utilized. FINDINGS: LUNGS: More prominent mild to moderate bibasilar linear scarring and/or atelectasis. No focal consoli dation. No pleural effusion or pneumothorax seen bilaterally. HEART: Size within normal limits. No significant coronary artery calcifications. MEDIASTINUM: Suboptimal study with most dense contrast in the SVC.. No central acute pulmonary emboli sm. Cannot exclude peripheral pulmonary embolism due to poor opacification and heterogeneity in the p eriphery. Enlarged main pulmonary artery suggesting underlying pulmonary artery hypertension measures 3.6 cm axial image 57. Adjacent ascending aorta measures 4.0 cm in diameter. There is a 4 vessel mercedes gin from aortic arch which is normal variant. OTHER: Cholecystectomy clips are seen. Small-sized hiatal hernia. Scoliosis in the thoracic spine is redemonstrated. IMPRESSION: 1. Suboptimal study without acute central pulmonary embolism. Cannot entirely exclude acute periphera l pulmonary embolism on this exam. 2. More prominent mild to moderate bibasilar linear scarring and/or atelectasis. Suspect underlying p ulmonary hypertension. Correlate clinically. There is 4.0 cm ascending aortic aneurysm. [facility], , 09/10/2024 1:57 PM
[2024-09-10 15:14] VITALS: PULSE 78; RESP 20
== END 2024-09-10 15:15 | disposition home or self-care (01) ==
LOC: EC 10:17
DX: J10.1 Influenza due to other identified influenza virus with other respiratory manifestations (principal); Z88.5 Allergy status to narcotic agent; Z88.6 Allergy status to analgesic agent; Z88.8 Allergy status to other drugs, medicaments and biological substances
CPT/HCPCS: 36415; 93005; 85379; 80053; 83735; 84484; 85025; 85610; 85730; 87636; 71046; 71275; 99284; Q9967